=== PATIENT | male | born 1950 | race Caucasian/White ===

== ENCOUNTER → 2016-09-20 | Outpatient (CLI) | payer OTHER ==
[~2016-09-20] MED LIST: AMOX500T PO; AMOX875T PO; ASPI-232 PO; CARB1TAB38 PO; ERGO1CAP35 PO; FURO40TA3 PO; GLIM1TAB2 PO; HYDR2TAB48 PO; LEVO50TA6 PO; LISI-461 PO; LISI-789 PO; MCRK20 PO; METF500T PO; METH5TAB2 PO; MIRT30TA3 PO; NITR0.4D6 SL; ONDA8TAB7 PO; PRAV20TA PO; PRAV40TA2 PO; SYN25 PO; ZLF/100 PO
[2016-09-20 17:50] LABS: BASO % 0.2 %; BASO ABS # 0.01 K/uL (0-0.2); COMPLETE YES; HEMATOCRIT 38.2 % (42-52); LYMPH % 22.7 %; LYMPH ABS # 1.14 K/uL (1.2-3.4); MEAN CELL VOLUME 93.2 fL (80-100); MEAN CORPUSCULAR HEMOGLOBIN 30.5 pg (25-34); MEAN CORPUSCULAR HGB CONC 32.7 g/dl (32-36); MEAN PLATELET VOLUME 11.3 fL (7.4-10.4); MONO % 16.1 %; PLATELET COUNT 125 K/uL (130-400); WHITE BLOOD COUNT 5.02 K/uL (4.8-10.8)
[2016-09-20 18:09] LABS: ALT/SGPT 22 U/L (12-78); BLOOD UREA NITROGEN 27 mg/dl (7-18); BUN/CREATININE RATIO 34.7 (10-20); C-REACTIVE PROTEIN 0.89 mg/dl (0-0.29); CARBON DIOXIDE 23 mmol/L (21-32); CHLORIDE 107 mmol/L (98-107); CHOLESTEROL 181 mg/dl (0-200); CREATININE 0.78 mg/dl (0.60-1.40); GLUCOSE 130 mg/dl (70-99); POTASSIUM 4.1 mmol/L (3.5-5.1); SODIUM 140 mmol/L (136-145); TRIGLYCERIDES 115 mg/dl (0-150); VERY LOW DENSITY LIPOPROT CALC 23 mg/dl
[2016-09-20 18:12] LABS: CHOLESTEROL/HDL RATIO 3.2; HDL CHOLESTEROL 56 mg/dl; LDL CHOLESTEROL CALCULATED 102 mg/dl
[2016-09-21 06:08] LABS: ESTIMATED AVERAGE GLUCOSE 105 mg/dl; HA1C FLAG Normal (Normal)
== END | disposition home or self-care (01) ==
LOC: C.LABMFLN 09:30
PROVIDERS: ATTEND Family Medicine
DX: M86.60 Other chronic osteomyelitis, unspecified site (principal); E11.9 Type 2 diabetes mellitus without complications; I25.10 Atherosclerotic heart disease of native coronary artery without angina pectoris

== ENCOUNTER → 2016-12-02 | Outpatient (CLI) | payer OTHER ==
[~2016-12-02] MED LIST changes: -CARB1TAB38 PO; +CARB400T3 PO
--- NOTE | 2016-12-02 14:23 | DIAGNOSTIC IMAGING REPORT ---
CHEST CT WITHOUT CONTRAST CT DOSE: HISTORY: Rectal cancer. TECHNIQUE: Multiaxial CT images of the chest were performed without contrast. Contrast was not administered due to the patient's reported allergy including shortness of breath. COMPARISON: PET CT 08/12/2016. FINDINGS: No pneumothorax. No pleural effusions. The central airways are patent. Stable 5 mm nodule within the right middle lobe on image 189. Mild diffuse reticulonodular interstitial thickening is also unchanged. This is consistent with chronic interstitial change. No new focal lung consolidations. No suspicious lytic or blastic osseous lesions. The heart is normal in size. No mediastinal or hilar lymphadenopathy. Normal caliber thoracic aorta. Left subclavian Port-A-Cath terminates in the SVC. IMPRESSION: 1. Stable 5 mm nodule within the right middle lobe. Continued follow-up recommended. 2. No change in the mild diffuse reticulonodular interstitial thickening. This is consistent with chronic interstitial change. No new focal lung consolidations. 3. Please refer to the dedicated abdomen and pelvis CT performed same day for further evaluation of the abdominal structures. Electronically signed by: Haider Solis M.D. 12/02/2016 2:20 PM Dictated Date/Time: 12/02/2016 2:15 PM
--- NOTE | 2016-12-02 14:29 | DIAGNOSTIC IMAGING REPORT ---
CT SCAN OF THE ABDOMEN AND PELVIS WITHOUT IV CONTRAST CLINICAL HISTORY: Rectal cancer. COMPARISON STUDY: PET/CT dated 08/30/2015. Abdominal CT dated 01/08/2016. TECHNIQUE: CT scan of the abdomen and pelvis is performed from the lung bases to the proximal femora. Images are reviewed in the axial, sagittal, and coronal planes. IV contrast was not administered for this examination due to a reported history of contrast allergy. Note that the examination is suboptimal without IV contrast. Automated dose control exposure was utilized. CT DOSE: 1563.47 mGy.cm FINDINGS: Lung bases: The heart is top normal in size and without pericardial effusion. There are coronary artery calcifications. A tiny hiatal hernia is observed. There is a 5 mm right middle lobe pulmonary nodule seen on axial image #47. This is unchanged dating back to the 08/30/2015 PET/CT. A 4 mm right lower lobe nodule is seen on image #34. Tiny calcified granulomas are present both lung bases. There is no airspace consolidation or pleural effusion. There is mild gynecomastia. Liver: The unenhanced liver is cirrhotic in morphology and markedly heterogeneous in attenuation. There is nodularity of the surface contour, as well as enlargement of the left lobe and caudate. There is no intrahepatic biliary ductal dilatation. Gallbladder: Unremarkable. Spleen: The spleen is mildly enlarged, measuring 14.7 cm in length. Pancreas: The Unenhanced pancreas is atrophic and grossly unremarkable. Adrenal glands: Unremarkable. Kidneys: The unenhanced kidneys demonstrate mild cortical atrophy and are without hydronephrosis. There are no renal calculi identified. There is no evidence of contour deforming renal mass lesion. Abdominal vasculature: The abdominal aorta is normal in course and caliber noting moderate to advanced atherosclerotic calcification. Bowel: There are postoperative changes from rectal resection with colocolonic anastomosis. Additionally, there is a diverting transverse double barrel colostomy present in the upper abdominal midline, as well as a mucous fistula suggested in the left lower quadrant. No bowel obstruction is seen. The appendix is well-visualized and normal. Peritoneum: There is no intraperitoneal free air or abdominal ascites. Lymphadenopathy: None. Pelvic viscera: There is circumferential bladder wall thickening. The prostate gland is diminutive. Presacral soft tissue stranding is again noted. Skeletal structures: The skeletal structures are osteopenic. No lytic or blastic lesions are seen. There is moderate lumbosacral spondylosis. Degenerative changes are identified involving the sacroiliac joints. IMPRESSION: 1. IV contrast was not administered due to a reported history of contrast allergy. 2. There is no evidence of metastatic disease in the abdomen or pelvis. 3. There are postoperative changes from rectal resection with colocolonic anastomosis, double barrel colostomy in the upper abdominal midline, and probable left lower quadrant mucous fistula. Correlation with the patient's surgical history will be required. No bowel obstruction is identified. 4. There is circumferential bladder wall thickening. 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 Correlation with clinical findings and urinalysis with be required. Presacral soft tissue infiltration is also unchanged and likely treatment related. 5. Cirrhotic liver morphology. 6. Splenomegaly. 7. There are 2 small pulmonary nodules the right lung base measuring up to 5 mm. These remain indeterminant and continued attention at follow-up is recommended. 8. Additional changes as detailed above. Electronically signed by: Brent Reyes M.D. 12/02/2016 2:26 PM Dictated Date/Time: 12/02/2016 2:16 PM
== END | disposition home or self-care (01) ==
LOC: C.CTS 10:49
PROVIDERS: ATTEND Internal Medicine Hematology & Oncology
DX: C20 Malignant neoplasm of rectum (principal); R16.1 Splenomegaly, not elsewhere classified; R91.8 Other nonspecific abnormal finding of lung field; R93.5 Abnormal findings on diagnostic imaging of other abdominal regions, including retroperitoneum

== ENCOUNTER → 2017-03-11 | Outpatient (CLI) | payer OTHER ==
[~2017-03-11] MED LIST changes: +CARB1TAB38 PO; -CARB400T3 PO
[2017-03-11 18:30] LABS: ALB/GLOB RATIO 0.9 (0.9-2); ALT/SGPT 28 U/L (12-78); AMYLASE 85 U/L (25-115); AST/SGOT 21 U/L (15-37); BLOOD UREA NITROGEN 27 mg/dl (7-18); BUN/CREATININE RATIO 37.1 (10-20); CALCIUM 9.2 mg/dl (8.5-10.1); CARBON DIOXIDE 27 mmol/L (21-32); CHLORIDE 109 mmol/L (98-107); CREATININE 0.73 mg/dl (0.60-1.40); GLUCOSE 120 mg/dl (70-99); POTASSIUM 4.2 mmol/L (3.5-5.1); SODIUM 141 mmol/L (136-145)
[2017-03-11 18:40] LABS: ALKALINE PHOSPHATASE 130 U/L (45-117)
[2017-03-11 18:44] LABS: BASO % 0.4 %; BASO ABS # 0.02 K/uL (0-0.2); COMPLETE YES; EOS % 5.6 %; HEMATOCRIT 41.6 % (42-52); IG% 0.2 %; MEAN CORPUSCULAR HEMOGLOBIN 29.7 pg (25-34); MEAN CORPUSCULAR HGB CONC 32.9 g/dl (32-36); MEAN PLATELET VOLUME 9.3 fL (7.4-10.4); MONO % 10.2 %; NEUT % 61.6 %; PLATELET COUNT 163 K/uL (130-400); RED BLOOD COUNT 4.62 M/uL (4.7-6.1); WHITE BLOOD COUNT 5.01 K/uL (4.8-10.8)
[2017-03-12 06:24] LABS: ESTIMATED AVERAGE GLUCOSE 114 mg/dl; HA1C FLAG Normal (Normal)
== END | disposition home or self-care (01) ==
LOC: C.LABMFLN 12:39
PROVIDERS: ATTEND Family Medicine
DX: Z00.00 Encounter for general adult medical examination without abnormal findings (principal); R10.9 Unspecified abdominal pain; I10 Essential (primary) hypertension; E78.00 Pure hypercholesterolemia, unspecified; E03.9 Hypothyroidism, unspecified; E11.9 Type 2 diabetes mellitus without complications

== ENCOUNTER → 2017-03-18 | Outpatient (CLI) | payer OTHER ==
[2017-03-18 18:29] LABS: RATIO 21.5 mcg/mg (0-30.0)
== END | disposition home or self-care (01) ==
LOC: C.LABMFLN 15:10
PROVIDERS: ATTEND Family Medicine
DX: E11.9 Type 2 diabetes mellitus without complications (principal)

== ENCOUNTER 2017-04-24 16:16 | Inpatient (IN) | payer OTHER ==
[~2017-04-24] VITALS: Ht 182.9 cm; Wt 103.5 kg
[~2017-04-24 16:16] MED LIST changes: -AMOX500T PO; -AMOX875T PO; -LEVO50TA6 PO; -LISI-461 PO; -MCRK20 PO; -METH5TAB2 PO; -MIRT30TA3 PO; -PRAV40TA2 PO; -ZLF/100 PO
[2017-04-24] MEDS ORDERED: METH5TAB2 PO (16:44)
[2017-04-24] MEDS ORDERED: LISI-461 PO (16:44)
[2017-04-24] MEDS ORDERED: PRAV40TA2 PO (16:44)
[2017-04-24] MEDS ORDERED: LEVO50TA6 PO (16:44)
[2017-04-24] MEDS ORDERED: MIRT30TA3 PO (16:44)
[2017-04-24] MEDS ORDERED: ZLF/100 PO (16:44)
[2017-04-24] MEDS ORDERED: PIPERACILLIN/TAZOBACTAM 3.375 GM/100ML D5W IV STA (16:55)
[2017-04-24] MEDS ORDERED: SODIUM CHLORIDE 0.9% 1000ML 1,000 ML IV STA (16:55)
[2017-04-24 17:10] LABS: BASO % 0.1 %; BASO ABS # 0.01 K/uL (0-0.2); COMPLETE YES; EOS % 0.4 %; IG% 0.3 %; LYMPH % 9.2 %; LYMPH ABS # 0.98 K/uL (1.2-3.4); MEAN CELL VOLUME 88.2 fL (80-100); MEAN CORPUSCULAR HEMOGLOBIN 30.7 pg (25-34); MEAN CORPUSCULAR HGB CONC 34.9 g/dl (32-36); MEAN PLATELET VOLUME 9.7 fL (7.4-10.4); PLATELET COUNT 113 K/uL (130-400); RED BLOOD COUNT 3.97 M/uL (4.7-6.1); WHITE BLOOD COUNT 10.67 K/uL (4.8-10.8)
[2017-04-24] MEDS ORDERED: OPTIRAY 320 IV PRN (17:15)
--- NOTE | 2017-04-24 17:16 | DIAGNOSTIC IMAGING REPORT ---
CHEST ONE VIEW PORTABLE HISTORY: 66 years-old Male ABDOMINAL PAIN/GI COMPARISON: Chest radiograph 07/05/2016 TECHNIQUE: Portable upright AP view of the chest FINDINGS: Cardiac silhouette is within normal limits. Left subclavian [id number] catheter is noted with distal tip terminating within the region of the mid SVC. Cardiac silhouette is within normal limits. There is no pneumothorax, pleural effusion, or overt pulmonary edema or focal airspace consolidation. Patchy subsegmental bibasilar opacities appear unchanged suggesting atelectasis. The bones are grossly intact. IMPRESSION: No acute cardiopulmonary process. The above report was generated using voice recognition software. It may contain grammatical, syntax or spelling errors. Electronically signed by: Cam Dominguez M.D. 04/24/2017 5:15 PM Dictated Date/Time: 04/24/2017 5:14 PM
[2017-04-24 17:19] LABS: INR 1.1 (0.9-1.1); PARTIAL THROMBOPLASTIN RATIO 1.6
[2017-04-24 17:31] LABS: BUN/CREATININE RATIO 19.8 (10-20); CALCIUM 8.8 mg/dl (8.5-10.1); CREATININE 0.82 mg/dl (0.60-1.40); POTASSIUM 3.6 mmol/L (3.5-5.1)
--- NOTE | 2017-04-24 19:24 | DIAGNOSTIC IMAGING REPORT ---
ABD/PELVIS NO IV OR ORAL CONT CLINICAL HISTORY: 66 years-old Male presenting with llq cellulitis/abscess. TECHNIQUE: Multidetector CT of the abdomen and pelvis was performed without the use of intravenous contrast. IV contrast: None. A dose lowering technique was used consistent with the principles of ALARA (as low as reasonably achievable). COMPARISON: 12/02/2016. CT DOSE (mGy.cm): The estimated cumulative dose is 1390.38 mGy.cm. FINDINGS: [employer] topogram: Unremarkable. Lung bases: Interval enlargement of the previously noted right middle lobe nodule, which now measures 8 mm, previously 6 mm (series 3 image 8) additionally, interval enlargement of the right lower lobe nodule, which now measures 7 mm, previously 4 mm (series 3 image 19). Minimal groundglass centrilobular opacities noted in the dependent portions of the right middle lobe, not significant changed from prior. Similar centrilobular groundglass opacities noted elsewhere including the lingula. Scattered groundglass opacity at the lung bases may represent atelectasis. The chamber enlargement of the heart is suggested. Coronary artery calcification. No pericardial or pleural effusion. Liver: Cirrhotic liver morphology. Ill-defined hypodense 2.1 cm lesion in the left hepatic lobe is new from prior and highly suspicious. Hepatic density consistent with steatosis. Biliary: No gross biliary ductal dilatation. Normal gallbladder. Pancreas: Mild parenchymal atrophy. Spleen: Enlarged measuring 14 cm in maximal sagittal dimension. Adrenal glands: Normal. Kidneys and ureters: No nephrolithiasis. No hydronephrosis. Normal ureters. Bladder: Circumferential bladder wall thickening. Pelvic organs: Prostate poorly visualized. Bowel: Postsurgical changes of proctectomy. The absence of intravenous and oral contrast limits evaluation. Left lower quadrant mucous fistula. Transverse colon diverting colostomy in the midline ventral abdomen. Small bowel appears tethered in the proctectomy bed. No bowel obstruction. Peritoneal cavity: No free fluid or intraperitoneal gas. Infiltration in the presacral space likely postradiation and posttreatment change. This is not significantly changed from prior and would be better evaluated with intravenous and oral contrast. Vasculature: Atherosclerosis of the normal caliber abdominal aorta. Lymph nodes: No pathologically enlarged lymph nodes by CT size criteria. Abdominal wall: Small amount of fluid noted in the left inguinal canal. Postsurgical changes in the midline and at the ostomy sites. No focal fluid collection. Mild in the [place] suggested. Skin thickening along the left abdomen with extensive subjacent subcutaneous fat stranding. Musculoskeletal: No destructive osseous lesion. Degenerative changes of the lumbar spine. IMPRESSION: 1. Skin thickening and subcutaneous infiltration of the left mid abdominal wall could be consistent with cellulitis. No subjacent abscess. 2. Extensive postsurgical changes of the bowel status post proctectomy with mid transverse colon diverting colostomy and left lower quadrant mucous fistula. No bowel obstruction. Extensive infiltration in the presacral space likely represents post radiation and posttreatment change. Evaluation for recurrence in the operative bed would be better evaluated with intravenous and oral contrast. The patient could receive a contrast-enhanced MR of the abdomen and pelvis in the future to assess for recurrence. 3. Evidence of new suspicious left hepatic lobe lesion, highly concerning for metastatic lesion. 4. Interval enlargement of 2 solid pulmonary nodules in the right lung, which are suspicious for pulmonary metastatic disease. 5. Cirrhosis likely with portal hypertension evidenced by splenomegaly. 6. 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 Electronically signed by: Joseph Olsen M.D. 04/24/2017 7:23 PM Dictated Date/Time: 04/24/2017 7:09 PM
--- NOTE | 2017-04-24 20:37 | EMERGENCY ROOM VISIT NOTE ---
History Report prepared by Candace: Owen Concepcion Under the Supervision of: Dr. Kavon Colin D.O. First contact with patient: 16:46 Chief Complaint: ABDOMINAL PAIN Stated Complaint: ABD PAIN, CANCER PT Nursing Triage Summary: Colorectal CA 2 years ago. Woke up this AM, unable to sleep due to LLQ pain. Blood clots in underwear this AM. Bleeding into ostomy bag. "When I changed my bag this AM, there was a hole in my stomach. There was pus." History of Present Illness The patient is a 66 year old male who presents to the Emergency Room with complaints of LLQ abdominal pain that began 7 days ago. He rates his pain a 10/ 10 in severity. The patient has a history of colorectal cancer 2 years ago and has a colostomy in place. Over this week, the patient has noticed a sunburn- like area of redness to his LLQ. This morning, he noticed a hole open up in the area that is expressing brown/yellow mucous. He has been having blood with clots in his colostomy bag over the past month, and had some this morning as well. Source of History: patient Onset: 1 week ago Position: abdomen (LLQ) Symptom Intensity: 10/10 Quality: sharp Timing: constant Associated Symptoms: + hematochezia Note: He has redness to his LLQ with a hole that is expressing pus. He denies any other symptoms. Review of Systems See HPI for pertinent positives & negatives. A total of 10 systems reviewed and were otherwise negative. Past Medical & Surgical Medical Problems: (1) Colostomy in place Surgical Problems: (1) Colorectal cancer Family History Omitted secondary to the patient's age. Social History Smoking Status: Never Smoker Smokeless Tobacco Use: No Drug Use: none Occupation Status: retired Current/Historical Medications Scheduled Carbamazepine Extended Release (Tegretol Xr), 400 MG PO QAM Furosemide (Lasix), 40 MG PO QAM Levothyroxine Sodium (Levothyroxine Sodium), 50 MCG PO QAM Lisinopril (Lisinopril), 10 MG PO DAILY Metformin Hcl (Glucophage), 500 MG PO BID Methadone Hcl (Dolophine), 5 MG PO TID Mirtazapine (Remeron), 30 MG PO HS Nitroglycerin (Nitroglycerin), 1 TAB SL prn Pravastatin Sodium (Pravastatin Sodium), 40 MG PO DAILY Sertraline HCl (Sertraline HCl), 100 MG PO DAILY Scheduled PRN Ondansetron Tab (Zofran), 8 MG PO Q6H PRN for Nausea Allergies Coded Allergies: Beta Adrenergic Blockers (Unverified Allergy, Intermediate, hives, 04/24/17 ) Citalopram (Verified Allergy, Intermediate, hives, 04/24/17) Codeine (Verified Allergy, Intermediate, hives, 04/24/17) Iodine (Verified Allergy, Intermediate, hives, 04/24/17) Metronidazole (Unverified Allergy, Intermediate, hives, 04/24/17) Povidone Iodine (Unverified Allergy, Intermediate, hives, 04/24/17) Atorvastatin (Verified Allergy, Mild, cramps and rash, 04/24/17) [place] [facility] (Unverified Allergy, Mild, tightening of throat, rash and hives, 04/24/17) Dextromethorphan (Unverified Allergy, Mild, tightening of throat, rash and hives, 04/24/17) Lisinopril (Verified Allergy, Mild, rash, 01/17/16) Propylene Glycol (Unverified Allergy, Mild, tightening of throat, rash and hives, 04/24/17) Saccharin (Unverified Allergy, Mild, tightening of throat, rash and hives , 04/24/17) Sodium Benzoate (Unverified Allergy, Mild, tightening of throat, rash and hives, 04/24/17) Tramadol (Verified Allergy, Mild, tightening of throat, 04/24/17) Uncoded Allergies: DIAL SOAP (Allergy, Intermediate, rash, 08/31/15) OPIUM NARCOTICS (Allergy, Intermediate, hives, 08/31/15) CLOTH AND PAPER TAPE (Allergy, Mild, rash, 11/27/15) Physical Exam Vital Signs Date Time Temp Pulse Resp B/P (MAP) Pulse Ox O2 Delivery O2 Flow Rate FiO2 04/24/17 21:09 87 04/24/17 20:02 69 16 132/60 96 Room Air 04/24/17 17:53 37.1 75 16 130/75 97 Room Air 04/24/17 17:09 85 04/24/17 16:31 36.7 111 17 145/86 95 Room Air Physical Exam CONSTITUTIONAL/VITAL SIGNS: Reviewed / noted above. GENERAL: Non-toxic in appearance. INTEGUMENTARY: Warm, dry, and [place]. HEAD: Normocephalic. EYES: without scleral icterus or trauma. ENT/OROPHARYNX: clear and moist. LYMPHADENOPATHY/NECK: Is supple without lymphadenopathy or meningismus. RESPIRATORY: Lungs clear and equal. CARDIOVASCULAR: Regular rate and rhythm. GI/ABDOMEN: There is a colostomy in place in the left mid abdominal region. No blood in colostomy at this time, stool is light brown. LLQ abdomen reveals diffuse cellulitis with a small opening that is draining purulent fluid ( collected for culture). There LLQ is tender to palpation. EXTREMITIES: Warm and well perfused. BACK: No CVA tenderness. NEUROLOGICAL: Intact without focal deficits. PSYCHIATRIC: normal affect. MUSCULOSKELETAL: Normally developed with good muscle tone. Medical Decision & Procedures ER Provider Diagnostic Interpretation: Radiology results as stated below per my review and radiologist interpretation: CHEST ONE VIEW PORTABLE HISTORY: 66 years-old Male ABDOMINAL PAIN/GI COMPARISON: Chest radiograph 07/05/2016 TECHNIQUE: Portable upright AP view of the chest FINDINGS: Cardiac silhouette is within normal limits. Left subclavian Maywgp-a-Ased catheter is noted with distal tip terminating within the region of the mid SVC. Cardiac silhouette is within normal limits. There is no pneumothorax, pleural effusion, or overt pulmonary edema or focal airspace consolidation. Patchy subsegmental bibasilar opacities appear unchanged suggesting atelectasis. The bones are grossly intact. IMPRESSION: No acute cardiopulmonary process. The above report was generated using voice recognition software. It may contain grammatical, syntax or spelling errors. Electronically signed by: Cam Dominguez M.D. 04/24/2017 5:15 PM Dictated Date/Time: 04/24/2017 5:14 PM ABD/PELVIS NO IV OR ORAL CONT CLINICAL HISTORY: 66 years-old Male presenting with llq cellulitis/abscess. TECHNIQUE: Multidetector CT of the abdomen and pelvis was performed without the use of intravenous contrast. IV contrast: None. A dose lowering technique was used consistent with the principles of ALARA (as low as reasonably achievable). COMPARISON: 12/02/2016. CT DOSE (mGy.cm): The estimated cumulative dose is 1390.38 mGy.cm. FINDINGS: [employer] topogram: Unremarkable. Lung bases: Interval enlargement of the previously noted right middle lobe nodule, which now measures 8 mm, previously 6 mm (series 3 image 8) additionally, interval enlargement of the right lower lobe nodule, which now measures 7 mm, previously 4 mm (series 3 image 19). Minimal groundglass centrilobular opacities noted in the dependent portions of the right middle lobe, not significant changed from prior. Similar centrilobular groundglass opacities noted elsewhere including the lingula. Scattered groundglass opacity at the lung bases may represent atelectasis. The chamber enlargement of the heart is suggested. Coronary artery calcification. No pericardial or pleural effusion. Liver: Cirrhotic liver morphology. Ill-defined hypodense 2.1 cm lesion in the left hepatic lobe is new from prior and highly suspicious. Hepatic density consistent with steatosis. Biliary: No gross biliary ductal dilatation. Normal gallbladder. Pancreas: Mild parenchymal atrophy. Spleen: Enlarged measuring 14 cm in maximal sagittal dimension. Adrenal glands: Normal. Kidneys and ureters: No nephrolithiasis. No hydronephrosis. Normal ureters. Bladder: Circumferential bladder wall thickening. Pelvic organs: Prostate poorly visualized. Bowel: Postsurgical changes of proctectomy. The absence of intravenous and oral contrast limits evaluation. Left lower quadrant mucous fistula. Transverse colon diverting colostomy in the midline ventral abdomen. Small bowel appears tethered in the proctectomy bed. No bowel obstruction. Peritoneal cavity: No free fluid or intraperitoneal gas. Infiltration in the presacral space likely postradiation and posttreatment change. This is not significantly changed from prior and would be better evaluated with intravenous and oral contrast. Vasculature: Atherosclerosis of the normal caliber abdominal aorta. Lymph nodes: No pathologically enlarged lymph nodes by CT size criteria. Abdominal wall: Small amount of fluid noted in the left inguinal canal. Postsurgical changes in the midline and at the ostomy sites. No focal fluid collection. Mild in the [place] suggested. Skin thickening along the left abdomen with extensive subjacent subcutaneous fat stranding. Musculoskeletal: No destructive osseous lesion. Degenerative changes of the lumbar spine. IMPRESSION: 1. Skin thickening and subcutaneous infiltration of the left mid abdominal wall could be consistent with cellulitis. No subjacent abscess. 2. Extensive postsurgical changes of the bowel status post proctectomy with mid transverse colon diverting colostomy and left lower quadrant mucous fistula. No bowel obstruction. Extensive infiltration in the presacral space likely represents post radiation and posttreatment change. Evaluation for recurrence in the operative bed would be better evaluated with intravenous and oral contrast. The patient could receive a contrast-enhanced MR of the abdomen and pelvis in the future to assess for recurrence. 3. Evidence of new suspicious left hepatic lobe lesion, highly concerning for metastatic lesion. 4. Interval enlargement of 2 solid pulmonary nodules in the right lung, which are suspicious for pulmonary metastatic disease. 5. Cirrhosis likely with portal hypertension evidenced by splenomegaly. 6. 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 Electronically signed by: Joseph Olsen M.D. 04/24/2017 7:23 PM Dictated Date/Time: 04/24/2017 7:09 PM Laboratory Results 04/24/17 16:55 Red Blood Count 3.97, Mean Corpuscular Volume 88.2, Mean Corpuscular Hemoglobin 30.7, Mean Corpuscular Hemoglobin Concent 34.9, Mean Platelet Volume 9.7, Neutrophils (%) (Auto) 79.0, Lymphocytes (%) (Auto) 9.2, Monocytes (%) (Auto) 11.0, Eosinophils (%) (Auto) 0.4, Basophils (%) (Auto) 0.1, Neutrophils # (Auto ) 8.44, Lymphocytes # (Auto) 0.98, Monocytes # (Auto) 1.17, Eosinophils # (Auto ) 0.04, Basophils # (Auto) 0.01 04/24/17 16:55 Test 04/24/17 16:55 White Blood Count 10.67 K/uL (4.8-10.8) Red Blood Count 3.97 M/uL (4.7-6.1) Hemoglobin 12.2 g/dL (14.0-18.0) Hematocrit 35.0 % (42-52) Mean Corpuscular Volume 88.2 fL (80-100) Mean Corpuscular Hemoglobin 30.7 pg (25-34) Mean Corpuscular Hemoglobin Concent 34.9 g/dl (32-36) Platelet Count 113 K/uL (130-400) Mean Platelet Volume 9.7 fL (7.4-10.4) Neutrophils (%) (Auto) 79.0 % Lymphocytes (%) (Auto) 9.2 % Monocytes (%) (Auto) 11.0 % Eosinophils (%) (Auto) 0.4 % Basophils (%) (Auto) 0.1 % Neutrophils # (Auto) 8.44 K/uL (1.4-6.5) Lymphocytes # (Auto) 0.98 K/uL (1.2-3.4) Monocytes # (Auto) 1.17 K/uL (0.11-0.59) Eosinophils # (Auto) 0.04 K/uL (0-0.5) Basophils # (Auto) 0.01 K/uL (0-0.2) RDW Standard Deviation 44.6 fL (36.4-46.3) RDW Coefficient of Variation 13.6 % (11.5-14.5) Immature Granulocyte % (Auto) 0.3 % Immature Granulocyte # (Auto) 0.03 K/uL (0.00-0.02) Prothrombin Time 12.0 SECONDS (9.0-12.0) Prothromb Time International Ratio 1.1 (0.9-1.1) Activated Partial Thromboplast Time 42.0 SECONDS (21.0-31.0) Partial Thromboplastin Ratio 1.6 Anion Gap 6.0 mmol/L (3-11) Est Creatinine Clear Calc Drug Dose 112.6 ml/min Estimated GFR () 107.6 Estimated GFR (Non- 92.8 BUN/Creatinine Ratio 19.8 (10-20) Calcium Level 8.8 mg/dl (8.5-10.1) Total Bilirubin 1.2 mg/dl (0.2-1) Direct Bilirubin 0.4 mg/dl (0-0.2) Aspartate Amino Transf (AST/SGOT) 12 U/L (15-37) Alanine Aminotransferase (ALT/SGPT) 14 U/L (12-78) Alkaline Phosphatase 140 U/L (45-117) Total Protein 6.8 gm/dl (6.4-8.2) Albumin 2.7 gm/dl (3.4-5.0) Laboratory results as stated above per my review. Medications Administered Medications (Trade) Dose Ordered Sig/Lorenzo Route Start Time Stop Time Status Last Admin Dose Admin Sodium Chloride 1,000 ml @ 200 mls/hr Q5H STAT IV 04/24/17 16:55 04/24/17 21:54 DC 04/24/17 16:55 200 MLS/HR Piperacillin Sod/ Tazobactam Sod (Zosyn Iv) 3.375 gm NOW STAT IV 04/24/17 16:55 04/24/17 16:59 DC 04/24/17 17:52 3.375 GM ED Course 164: Previous medical records were reviewed. The patient was evaluated in room B8. A complete history and physical examination was performed. 1654: Ordered Sodium Chloride 1000 ml @ 200 mls/hr IV, Zosyn Iv 3.375 gm IV 2027: On reevaluation, the patient is resting. I discussed the results and findings with him. He verbalized agreement of the treatment plan. I spoke with Dr. Roblero of the [facility]. The patient will be evaluated for further management and care. Medical Decision Differential considered: pancreatitis, hepatitis, or acute cholecystitis, AAA, UTI, pyelonephritis, kidney stones, appendicitis, diverticulitis, shingles, bowel obstruction mesenteric ischemia, intussusception, hernia, and testicular torsion. This is a 66-year-old male who presents to the ED with a chief complaint of left lower quadrant abdominal pain and redness as well as discharge. The patient states that his symptoms started about a week to 10 days ago. He states that today his pain increased and he noticed discharge from a hole in his left lower abdomen. The patient reports a history of colon cancer. He has a colostomy. His vital signs are stable. He is afebrile. His exam reveals cellulitis to the left lower abdomen with drainage from a small 1-2 cm hole. The drainage is purulent in nature. There is tenderness to palpation of the left lower quadrant in the area of the erythema. Chest x-ray did not show acute disease. CBC is unremarkable. Complete metabolic panel was unremarkable. Glucose is 157. CT scan of the abdomen and pelvis reveals findings suggesting left lower abdominal wall cellulitis. The patient was given IV Zosyn. He will be seen by the hospitalist for further inpatient evaluation and care. Medication Reconcilliation Current Medication List: was personally reviewed by me Blood Pressure Screening Patient's blood pressure: Elevated blood pressure Blood pressure disposition: Elevated BP felt to be situational Consults Time Called: 2024 Consulting Physician: Dr. [place] [facility] [place] Call: 2027 Discussed the patient's case. The patient will be evaluated for further treatment and disposition. Impression Primary Impression: Abdominal wall cellulitis Scribe Attestation The scribe's documentation has been prepared under my direction and personally reviewed by me in its entirety. I confirm that the note above accurately reflects all work, treatment, procedures, and medical decision making performed by me. Departure Information Dispostion Being Evaluated By Hospitalist Referrals Bob Israel M.D. (PCP) Patient Instructions My [facility]
[2017-04-24] MEDS ORDERED: POLYETHYLENE (MIRALAX) 17 GM PACK PO PRN (21:30)
[2017-04-24] MEDS ORDERED: MAGNESIUM HYDROXIDE SUSP 30 ML UDC PO PRN (21:30)
[2017-04-24] MEDS ORDERED: ACETAMINOPHEN 325 MG TAB PO PRN (21:30)
--- NOTE | 2017-04-24 22:02 | History and Physical ---
History & Physical Date & Time of Service: Apr 24, 2017 at 22:02 Chief Complaint: Abd Pain, Cancer Pt Primary Care Physician: Bob Israel M.D. History of Present Illness Source: patient 66-year-old male with past medical history of colorectal cancer status post colonic resection with colostomy present in the ER with complaints of left lower quadrant abdominal pain that started about 7 days ago. The patient complains of reddish "sunburn" like rash on the left lower quadrant that he noticed over this week and he woke up this morning with bleeding, brownish to yellow mucoid discharge from a hole that developed near the redness. Denies any fevers or chills. Has nausea and vomiting intermittently at baseline which hasn't changed. Complains of abdominal pain which is constant and radiating to his back on the left side and across the abdomen to his right , 11.5/10 in severity. He currently uses methadone for pain control. Past Medical/Surgical History Medical Problems: (1) Colostomy in place Status: Chronic Surgical Problems: (1) Colorectal cancer Status: Resolved Social History Smoking Status: Never Smoker Smokeless Tobacco Use: No Drug Use: none Occupational Status: retired Immunizations History of Influenza Vaccine: Yes History of Tetanus Vaccine?: Yes History of Pneumococcal: Yes History of Hepatitis B Vaccine: No Multi-Drug Resistant Organisms History of MDRO: No Allergies Coded Allergies: Beta Adrenergic Blockers (Unverified Allergy, Intermediate, hives, 04/24/17 ) Citalopram (Verified Allergy, Intermediate, hives, 04/24/17) Codeine (Verified Allergy, Intermediate, hives, 04/24/17) Iodine (Verified Allergy, Intermediate, hives, 04/24/17) Metronidazole (Unverified Allergy, Intermediate, hives, 04/24/17) Povidone Iodine (Unverified Allergy, Intermediate, hives, 04/24/17) Atorvastatin (Verified Allergy, Mild, cramps and rash, 04/24/17) [place] [facility] (Unverified Allergy, Mild, tightening of throat, rash and hives, 04/24/17) Dextromethorphan (Unverified Allergy, Mild, tightening of throat, rash and hives, 04/24/17) Lisinopril (Verified Allergy, Mild, rash, 01/17/16) Propylene Glycol (Unverified Allergy, Mild, tightening of throat, rash and hives, 04/24/17) Saccharin (Unverified Allergy, Mild, tightening of throat, rash and hives , 04/24/17) Sodium Benzoate (Unverified Allergy, Mild, tightening of throat, rash and hives, 04/24/17) Tramadol (Verified Allergy, Mild, tightening of throat, 04/24/17) Uncoded Allergies: DIAL SOAP (Allergy, Intermediate, rash, 08/31/15) OPIUM NARCOTICS (Allergy, Intermediate, hives, 08/31/15) CLOTH AND PAPER TAPE (Allergy, Mild, rash, 11/27/15) Home Medications Scheduled Carbamazepine Extended Release (Tegretol Xr), 400 MG PO QAM Furosemide (Lasix), 40 MG PO QAM Levothyroxine Sodium (Levothyroxine Sodium), 50 MCG PO QAM Lisinopril (Lisinopril), 10 MG PO DAILY Metformin Hcl (Glucophage), 500 MG PO BID Methadone Hcl (Dolophine), 5 MG PO TID Mirtazapine (Remeron), 30 MG PO HS Nitroglycerin (Nitroglycerin), 1 TAB SL prn Pravastatin Sodium (Pravastatin Sodium), 40 MG PO DAILY Sertraline HCl (Sertraline HCl), 100 MG PO DAILY Scheduled PRN Ondansetron Tab (Zofran), 8 MG PO Q6H PRN for Nausea Review of Systems Constitutional: No fever, No chills Eyes: No worsening of vision ENT: No hearing loss Respiratory: No cough Cardiovascular: No chest pain Abdomen: + pain (left lower quadrant), + nausea (chronic), + vomiting (chronic) , + problem reported (mucoid discharge from an opening in the left lower quadrant) Genitourinary - Male: No hematuria, No dysuria Neurologic: No memory loss Psychiatric: No depression symptoms Endocrine: No fatigue Hematologic / Lymphatic: No abnormal bleeding/bruising Physical Exam Vital Signs Date Time Temp Pulse Resp B/P (MAP) Pulse Ox O2 Delivery O2 Flow Rate FiO2 04/24/17 21:09 87 04/24/17 20:02 69 16 132/60 96 Room Air 04/24/17 17:53 37.1 75 16 130/75 97 Room Air 04/24/17 17:09 85 04/24/17 16:31 36.7 111 17 145/86 95 Room Air General Appearance: WD/WN, no apparent distress Eyes: normal inspection ENT: hearing grossly normal Neck: supple Respiratory/Chest: chest non-tender, lungs clear, normal breath sounds, no respiratory distress Cardiovascular: regular rate, rhythm Abdomen/GI: + tenderness (left lower quadrant), + pertinent finding (colostomy bag in mid abdominal area. Left lower quadrant erythematous, warm, tender with a small opening with brownish yellow discharge.) Extremities/Musculoskelatal: no pedal edema Neurologic/Psych: alert, normal mood/affect, oriented x 3 Skin: normal color Diagnostics Laboratory Results Results Past 24 Hours Test 04/24/17 16:55 Range/Units White Blood Count 10.67 4.8-10.8 K/uL Red Blood Count 3.97 4.7-6.1 M/uL Hemoglobin 12.2 14.0-18.0 g/dL Hematocrit 35.0 42-52 % Mean Corpuscular Volume 88.2 80-100 fL Mean Corpuscular Hemoglobin 30.7 25-34 pg Mean Corpuscular Hemoglobin Concent 34.9 32-36 g/dl Platelet Count 113 130-400 K/uL Mean Platelet Volume 9.7 7.4-10.4 fL Neutrophils (%) (Auto) 79.0 % Lymphocytes (%) (Auto) 9.2 % Monocytes (%) (Auto) 11.0 % Eosinophils (%) (Auto) 0.4 % Basophils (%) (Auto) 0.1 % Neutrophils # (Auto) 8.44 1.4-6.5 K/uL Lymphocytes # (Auto) 0.98 1.2-3.4 K/uL Monocytes # (Auto) 1.17 0.11-0.59 K/uL Eosinophils # (Auto) 0.04 0-0.5 K/uL Basophils # (Auto) 0.01 0-0.2 K/uL RDW Standard Deviation 44.6 36.4-46.3 fL RDW Coefficient of Variation 13.6 11.5-14.5 % Immature Granulocyte % (Auto) 0.3 % Immature Granulocyte # (Auto) 0.03 0.00-0.02 K/uL Prothrombin Time 12.0 9.0-12.0 SECONDS Prothromb Time International Ratio 1.1 0.9-1.1 Activated Partial Thromboplast Time 42.0 21.0-31.0 SECONDS Partial Thromboplastin Ratio 1.6 Sodium Level 132 136-145 mmol/L Potassium Level 3.6 3.5-5.1 mmol/L Chloride Level 98 98-107 mmol/L Carbon Dioxide Level 28 21-32 mmol/L Anion Gap 6.0 3-11 mmol/L Blood Urea Nitrogen 16 7-18 mg/dl Creatinine 0.82 0.60-1.40 mg/dl Est Creatinine Clear Calc Drug Dose 112.6 ml/min Estimated GFR () 107.6 Estimated GFR (Non- 92.8 BUN/Creatinine Ratio 19.8 10-20 Random Glucose 157 70-99 mg/dl Calcium Level 8.8 8.5-10.1 mg/dl Total Bilirubin 1.2 0.2-1 mg/dl Direct Bilirubin 0.4 0-0.2 mg/dl Aspartate Amino Transf (AST/SGOT) 12 15-37 U/L Alanine Aminotransferase (ALT/SGPT) 14 12-78 U/L Alkaline Phosphatase 140 45-117 U/L Total Protein 6.8 6.4-8.2 gm/dl Albumin 2.7 3.4-5.0 gm/dl Microbiology Results 04/24/17 Blood Culture, Received Pending 04/24/17 Blood Culture, Received Pending 04/24/17 Gram Stain, Received Pending 04/24/17 Wound Culture, Received Pending Diagnostic Radiology CHEST ONE VIEW PORTABLE HISTORY: 66 years-old Male ABDOMINAL PAIN/GI COMPARISON: Chest radiograph 07/05/2016 TECHNIQUE: Portable upright AP view of the chest FINDINGS: Cardiac silhouette is within normal limits. Left subclavian [id number]-[id number] catheter is noted with distal tip terminating within the region of the mid SVC. Cardiac silhouette is within normal limits. There is no pneumothorax, pleural effusion, or overt pulmonary edema or focal airspace consolidation. Patchy subsegmental bibasilar opacities appear unchanged suggesting atelectasis. The bones are grossly intact. IMPRESSION: No acute cardiopulmonary process. The above report was generated using voice recognition software. It may contain grammatical, syntax or spelling errors. Electronically signed by: Cam Dominguez M.D. ABD/PELVIS NO IV OR ORAL CONT CLINICAL HISTORY: 66 years-old Male presenting with llq cellulitis/abscess. TECHNIQUE: Multidetector CT of the abdomen and pelvis was performed without the use of intravenous contrast. IV contrast: None. A dose lowering technique was used consistent with the principles of ALARA (as low as reasonably achievable). COMPARISON: 12/02/2016. CT DOSE (mGy.cm): The estimated cumulative dose is 1390.38 mGy.cm. FINDINGS: Medical Planner topogram: Unremarkable. Lung bases: Interval enlargement of the previously noted right middle lobe nodule, which now measures 8 mm, previously 6 mm (series 3 image 8) additionally, interval enlargement of the right lower lobe nodule, which now measures 7 mm, previously 4 mm (series 3 image 19). Minimal groundglass centrilobular opacities noted in the dependent portions of the right middle lobe, not significant changed from prior. Similar centrilobular groundglass opacities noted elsewhere including the lingula. Scattered groundglass opacity at the lung bases may represent atelectasis. The chamber enlargement of the heart is suggested. Coronary artery calcification. No pericardial or pleural effusion. Liver: Cirrhotic liver morphology. Ill-defined hypodense 2.1 cm lesion in the left hepatic lobe is new from prior and highly suspicious. Hepatic density consistent with steatosis. Biliary: No gross biliary ductal dilatation. Normal gallbladder. Pancreas: Mild parenchymal atrophy. Spleen: Enlarged measuring 14 cm in maximal sagittal dimension. Adrenal glands: Normal. Kidneys and ureters: No nephrolithiasis. No hydronephrosis. Normal ureters. Bladder: Circumferential bladder wall thickening. Pelvic organs: Prostate poorly visualized. Bowel: Postsurgical changes of proctectomy. The absence of intravenous and oral contrast limits evaluation. Left lower quadrant mucous fistula. Transverse colon diverting colostomy in the midline ventral abdomen. Small bowel appears tethered in the proctectomy bed. No bowel obstruction. Peritoneal cavity: No free fluid or intraperitoneal gas. Infiltration in the presacral space likely postradiation and posttreatment change. This is not significantly changed from prior and would be better evaluated with intravenous and oral contrast. Vasculature: Atherosclerosis of the normal caliber abdominal aorta. Lymph nodes: No pathologically enlarged lymph nodes by CT size criteria. Abdominal wall: Small amount of fluid noted in the left inguinal canal. Postsurgical changes in the midline and at the ostomy sites. No focal fluid collection. Mild in the [place] suggested. Skin thickening along the left abdomen with extensive subjacent subcutaneous fat stranding. Musculoskeletal: No destructive osseous lesion. Degenerative changes of the lumbar spine. IMPRESSION: 1. Skin thickening and subcutaneous infiltration of the left mid abdominal wall could be consistent with cellulitis. No subjacent abscess. 2. Extensive postsurgical changes of the bowel status post proctectomy with mid transverse colon diverting colostomy and left lower quadrant mucous fistula. No bowel obstruction. Extensive infiltration in the presacral space likely represents post radiation and posttreatment change. Evaluation for recurrence in the operative bed would be better evaluated with intravenous and oral contrast. The patient could receive a contrast-enhanced MR of the abdomen and pelvis in the future to assess for recurrence. 3. Evidence of new suspicious left hepatic lobe lesion, highly concerning for metastatic lesion. 4. Interval enlargement of 2 solid pulmonary nodules in the right lung, which are suspicious for pulmonary metastatic disease. 5. Cirrhosis likely with portal hypertension evidenced by splenomegaly. 6. 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 Impression Assessment and Plan 66-year-old male with past medical history of colorectal cancer status post colonic resection with colostomy present in the ER with complaints of left lower quadrant abdominal pain that started about 7 days ago. The patient complains of reddish "sunburn" like rash on the left lower quadrant that he noticed over this week and he woke up this morning with bleeding, brownish to yellow mucoid discharge from a hole that developed near the redness. Left low quadrant abdominal wall cellulitis with fistula: - Abdominal CT suggestive of cellulitis of abdominal wall with postsurgical changes of bowel including left lower quadrant mucous fistula. - Wound culture, blood culture pending - Started on vancomycin and clindamycin - GEN surgery consult - Pain control with 5 mg methadone 3 times a day(home dose) New onset Left hepatic lobe lesion: - As evidenced on CT, concerning for metastatic lesion - Oncology consult Possible lung metastasis: - Interval enlargement of 2 solid pulmonary nodules in the right lung concerning for metastases - Oncology consult as above - Consider CT surgery consult for possible biopsy History of seizures: Last seizure about 10 years ago - Continue Tegretol 400 mg once daily Hypothyroidism: - Continue Synthroid Hypertension: - Continue lisinopril 10 mg daily Diabetes type 2: - Home medications currently held - Insulin sliding scale Hyperlipidemia: - Continue pravastatin 40 mg daily Depression: - Continue Zoloft 100 mg daily DVT prophylaxis: SCDs DO NOT RESUSCITATE Disposition: Admitted to [facility] Resident Physician Supervision Note: I was present with Dr. Pineda during the history and exam. I discussed the case with the resident and agree with the findings and plan as documented in the note. Any exceptions or clarifications are listed here: 66 y/o M HTN, hypothyroid, colorectal CA - post colostomy placement presenting with abdominal wall cellulitis and abscess which may have ruptured. Cirrhosis seen on imaging in addition to what is likely a new met in the pt's liver. OE AAO x 3 S1,2 R CTAB Tender abdomen with erythematous wall and central draining area - colostomy is functional No CCE P: Pt placed on broad-spectrum antibiotics Surgery consulted Status of his CA is unclear - does not state that remission was achieved - he can f/u with his oncologist following DC Documented By: Darnell Roblero Level of Care Med/Surg VTE Prophylaxis VTE Risk Assessment Done? Y/N: Yes Risk Level: Moderate Given or contraindicated: SCD's Resident Tracking Resident Involvement: Resident Care Provided Care Provided: Adult Hospital Medicine
[2017-04-24 22:18] VITALS: Ht 182.9 cm; Wt 103.5 kg
--- NOTE | 2017-04-24 22:45 | Pharmacy Progress Note ---
Pharmacy Abx Initial Consult Date of Service Apr 24, 2017. Pharmacy Dosing Scope Date of Consult: 04/24/17 Consultation requested by: Dr. Ron Pharmacy is consulted to initiate vancomycin IV dosing therapy, order appropriate labs and adjust drug dose/frequency. Subjective The patient is a 66 year old male admitted on 04/24/17. Objective Height (Feet): 6 Height (Inches): 0 Weight (Kilograms): 105.200 Vital Signs (Past 12Hrs) Vital Signs Past 12 Hours Date Time Temp Pulse Resp B/P (MAP) Pulse Ox O2 Delivery O2 Flow Rate FiO2 04/24/17 21:09 87 04/24/17 20:02 69 16 132/60 96 Room Air 04/24/17 17:53 37.1 75 16 130/75 97 Room Air 04/24/17 17:09 85 04/24/17 16:31 36.7 111 17 145/86 95 Room Air Lab Results (24Hrs) Laboratory Tests (24 Hours) Test 04/24/17 16:55 White Blood Count 10.67 K/uL (4.8-10.8) Red Blood Count 3.97 M/uL (4.7-6.1) L Hemoglobin 12.2 g/dL (14.0-18.0) L Hematocrit 35.0 % (42-52) L Mean Corpuscular Volume 88.2 fL (80-100) Mean Corpuscular Hemoglobin 30.7 pg (25-34) Mean Corpuscular Hemoglobin Concent 34.9 g/dl (32-36) Platelet Count 113 K/uL (130-400) L Mean Platelet Volume 9.7 fL (7.4-10.4) Neutrophils (%) (Auto) 79.0 % Lymphocytes (%) (Auto) 9.2 % Monocytes (%) (Auto) 11.0 % Eosinophils (%) (Auto) 0.4 % Basophils (%) (Auto) 0.1 % Neutrophils # (Auto) 8.44 K/uL (1.4-6.5) H Lymphocytes # (Auto) 0.98 K/uL (1.2-3.4) L Monocytes # (Auto) 1.17 K/uL (0.11-0.59) H Eosinophils # (Auto) 0.04 K/uL (0-0.5) Basophils # (Auto) 0.01 K/uL (0-0.2) Micro Results Date/Time Source Procedure Growth Status 04/24/17 17:53 Blood Blood Culture Pending Received 04/24/17 16:55 Blood Blood Culture Pending Received 04/24/17 16:55 Ulcer Abdomen Gram Stain Pending Received 04/24/17 16:55 Ulcer Abdomen Wound Culture Pending Received Risk Factors for Resistance * Immunocompromised (h/o colon cancer with colostomy) Assessment & Plan Assessment 66 year old male admitted 04/24/17 with a 7 day h/o LLQ abdominal pain. He has a colostomy bag. The patient states that he has a hole in his abdomen expressing pus. Plan vancomycin for treatment of SSTI Vancomycin IV * Loading dose: 2500 mg (23.7 mg/kg) * Maintenance dose: 1500 mg IV (15 mg/kg) every 8 hours (population pharmacokinetics suggest a half-life of 7.96 hours) * Goal trough level for SSTI : 15 to 20 mcg/mL * Trough ordered for prior to fourth dose Pharmacy will continue to follow and will adjust dose/frequency as necessary. Thank you.
[2017-04-24] MEDS ORDERED: VANCOMYCIN CONSULT ACTIVE PRN (23:00)
[2017-04-24] MEDS ORDERED: SODIUM CHLORIDE 0.9% IV ONE (23:45)
[2017-04-24] MEDS ORDERED: VANCOMYCIN IV ONE (23:45)
[2017-04-24] MEDS: METHADONE HCL 5 MG TAB PO SCH (23:59)
[2017-04-25] MEDS: CLINDAMYCIN IV 300 MG in DEXTROSE 5% 50ML 50 ML IV SCH ×4 (00:05→23:51)
[2017-04-25] MEDS: SODIUM CHLORIDE 0.9% 1000ML 1,000 ML IV SCH ×2 (00:36→13:39)
[2017-04-25 03:42] VITALS: BP 114/66; PULSE 75; TEMP 37.2; O2SAT 95
[2017-04-25] MEDS: LEVOTHYROXINE 50 MCG TAB PO SCH (06:08)
[2017-04-25 06:39] LABS: BASO % 0.2 %; BASO ABS # 0.01 K/uL (0-0.2); COMPLETE YES; EOS % 2.2 %; HEMATOCRIT 31.3 % (42-52); LYMPH % 11.3 %; LYMPH ABS # 0.66 K/uL (1.2-3.4); MEAN CELL VOLUME 88.4 fL (80-100); MEAN CORPUSCULAR HEMOGLOBIN 30.2 pg (25-34); MEAN CORPUSCULAR HGB CONC 34.2 g/dl (32-36); MEAN PLATELET VOLUME 9.1 fL (7.4-10.4); MONO % 13.3 %; PLATELET COUNT 103 K/uL (130-400); RED BLOOD COUNT 3.54 M/uL (4.7-6.1); WHITE BLOOD COUNT 5.85 K/uL (4.8-10.8)
[2017-04-25 07:11] LABS: BUN/CREATININE RATIO 22.9 (10-20); CALCIUM 8.3 mg/dl (8.5-10.1); CREATININE 0.68 mg/dl (0.60-1.40); POTASSIUM 3.6 mmol/L (3.5-5.1)
[2017-04-25 07:13] LABS: ALB/GLOB RATIO 0.7 (0.9-2)
[2017-04-25 07:35] VITALS: BP 145/74; PULSE 82; TEMP 36.8; O2SAT 96
[2017-04-25 07:54] VITALS: O2SAT 96
[2017-04-25] MEDS: METHADONE HCL 5 MG TAB PO SCH ×3 (08:27→21:38)
--- NOTE | 2017-04-25 08:53 | CONSULTATION REPORT ---
DATE OF CONSULTATION: 04/25/2017 DATE OF CONSULTATION: 04/25/2017 SUMMARY: This is a 66-year-old gentleman known to me for placing an MRI compatible port in the left subclavian back in November 2015. The gentleman had had a diagnosis of rectal cancer back in July 2015. At that time underwent adjuvant therapy and then was referred to Dr. Vega in [place] where according to the patient underwent a resection, but could not be reanastomosed and ended up with a left lower quadrant colostomy. A few months later, the colostomy needed to be revised and was placed in the transverse area of the colon. The patient denies that he has had any mucus fistula distal to that or any other drainage other than the colostomy that was placed up higher. Following that he has been seen regularly by oncologist who at this present time according to the patient are not going to administer him any more chemotherapy. By CAT scan that he had on this admission shows some progression of disease in the liver and some nodules in the lung. The patient lives in [facility]. He has son-in-law and daughter that are quite attentive to him, in fact the present symptomatology started approximately 4 days ago where the patient was experiencing more than unusual pain in the left lower quadrant down across the abdomen. He had had previous radiation treatments to that area, did not think much of it, but the pain intensified until yesterday morning as the son-in-law was helping him bathe noticed the redness in the side and spontaneous drainage of an area with significant amount of purulent drainage and came into the Emergency Room where he was found by CAT scan to have what appears to be a fistula in the left of the midline incision. I am not sure if this communicates with the bowel, may be secondary to just underneath the subcutaneous tissue which is extensive and also slightly intraabdominally. I reviewed the CAT scan this morning with Dr. Soares to try to make heads or tails as the patient had denied that he has had any mucus fistula identified at the site of this. Whether spontaneous drainage from the remnant of the descending colon, it certainly does not appear to have any succuss entericus at this time. Having said this, I think we will ask for records from the past surgeries in [place] to try to figure out what was done intraabdominally. PAST MEDICAL HISTORY: Pretty much unremarkable other than the surgery that he had colorectal and the A-port. The patient is routinely on methadone for significant amount of pain. He has taken up to 5 mg t.i.d. sometimes more. He is on metformin for slight diabetes. PHYSICAL EXAMINATION: GENERAL: As I see him this morning, Joseph is resting fairly comfortably. He is in no acute distress. HEAD: Normocephalic. EYES: PERRLA. The sclerae is nonicteric. NECK: There is no cervical lymphadenopathy. The A-port site is working well, it is infusing. CHEST AND LUNGS: Clear. HEART: Normal sinus rhythm. ABDOMEN: Soft, it is nontender. There is very little cellulitis, if anything just in an area left of the midline incision which is extending approximately 1/4 of an inch, spontaneous drainage that if you push in that area you get some whitish purulent drainage. The cellulitis is very minimal around the area. There is no other abdominal wall findings. The colostomy has a bag in the transverse colon area. VITAL SIGNS: Showed a temperature of 36.8, pulse 82, respirations 16, blood pressure 145/74, O2 sats 96 on room air. LABORATORY STUDY: Showed a white count of 10.67 when he came in with a slight left shift. This morning his white count is down to 5.85 with no left shift. Laboratory studies liver function tests are fairly normal. He had a slight elevated alkaline phosphatase yesterday, that today is within normal. The albumin is 2.4. IMPRESSION: At this point, there is no need for any surgical drainage. The patient spontaneously draining this area and hopefully will resolve. We will try to get the records from [place] to try to identify the etiology of this and may make further recommendations, but at this time I would continue with antibiotics and local wound care, probably a VAC system may be beneficial to place in the area. I know that a wound consultation has been placed. Thank you for allowing us to participate in the care your patient.
[2017-04-25] MEDS: INSULIN ASPART 100 UNITS/ML 3 ML PEN SC SCH ×4 (09:51→21:00)
[2017-04-25] MEDS: SERTRALINE HCL 100 MG TAB PO SCH (09:52)
[2017-04-25] MEDS: CARBAMAZEPINE 200 MG TABCR PO SCH (09:52)
[2017-04-25] MEDS: FUROSEMIDE 40 MG TAB PO SCH (09:53)
[2017-04-25] MEDS: LISINOPRIL 10 MG TAB PO SCH (09:53)
[2017-04-25] MEDS: PRAVASTATIN SOD 40 MG TAB PO SCH (09:53)
--- NOTE | 2017-04-25 10:04 | Oncology Consultation ---
Oncology/Heme Consultation Date of Consultation: Apr 25, 2017. Attending Physician: Darnell Roblero M.D. Reason for Consultation: History of colon carcinoma History of Present Illness Mr. Malone is a 66-year-old gentleman with a history of colon carcinoma. The tumor was resected in August 2015. It was a PT3N to a lesion. 4 regional lymph nodes were involved. Microsatellite was stable. He was treated adjuvantly with FOLFOX that was completed in June 2016. He is now admitted with exquisite pain in the lower left flank with about 10 days to 2 weeks of skin discoloration with erythema. Yesterday the skin broke with purulent material being expressed. He is now admitted for treatment of abscess\cellulitis. With his evaluation a CT scan of the chest abdomen and pelvis reflects to pulmonary nodules that have enlarged slightly when compared to prior scans and there is a hint of defects within the liver that are new and suggestive of metastatic disease. His CEA has recently been noted to be slightly elevated or more elevated than before. Our notes reflect that a recent colonoscopy was normal with no evidence of recurrent disease. 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 Past Medical/Surgical History Medical Problems: (1) Abdominal wall cellulitis Status: Acute Social History Smoking Status: Never Smoker Smokeless Tobacco Use: No Drug Use: none Occupation Status: retired Allergies Coded Allergies: Beta Adrenergic Blockers (Unverified Allergy, Intermediate, hives, 04/24/17 ) Citalopram (Verified Allergy, Intermediate, hives, 04/24/17) Codeine (Verified Allergy, Intermediate, hives, 04/24/17) Iodine (Verified Allergy, Intermediate, hives, 04/24/17) Metronidazole (Unverified Allergy, Intermediate, hives, 04/24/17) Povidone Iodine (Unverified Allergy, Intermediate, hives, 04/24/17) Atorvastatin (Verified Allergy, Mild, cramps and rash, 04/24/17) Pratt Blue FCF (Unverified Allergy, Mild, tightening of throat, rash and hives, 04/24/17) Dextromethorphan (Unverified Allergy, Mild, tightening of throat, rash and hives, 04/24/17) Lisinopril (Verified Allergy, Mild, rash, 01/17/16) Propylene Glycol (Unverified Allergy, Mild, tightening of throat, rash and hives, 04/24/17) Saccharin (Unverified Allergy, Mild, tightening of throat, rash and hives , 04/24/17) Sodium Benzoate (Unverified Allergy, Mild, tightening of throat, rash and hives, 04/24/17) Tramadol (Verified Allergy, Mild, tightening of throat, 04/24/17) Uncoded Allergies: DIAL SOAP (Allergy, Intermediate, rash, 08/31/15) OPIUM NARCOTICS (Allergy, Intermediate, hives, 08/31/15) CLOTH AND PAPER TAPE (Allergy, Mild, rash, 11/27/15) Home Medications Scheduled Carbamazepine Extended Release (Tegretol Xr), 400 MG PO QAM Furosemide (Lasix), 40 MG PO QAM Levothyroxine Sodium (Levothyroxine Sodium), 50 MCG PO QAM Lisinopril (Lisinopril), 10 MG PO DAILY Metformin Hcl (Glucophage), 500 MG PO BID Methadone Hcl (Dolophine), 5 MG PO TID Mirtazapine (Remeron), 30 MG PO HS Nitroglycerin (Nitroglycerin), 1 TAB SL prn Pravastatin Sodium (Pravastatin Sodium), 40 MG PO DAILY Sertraline HCl (Sertraline HCl), 100 MG PO DAILY Scheduled PRN Ondansetron Tab (Zofran), 8 MG PO Q6H PRN for Nausea Current Inpatient Medications Current Inpatient Medications Medications (Trade) Dose Ordered Sig/Lorenzo Route Start Time Stop Time Status Last Admin Dose Admin Acetaminophen (Tylenol Tab) 650 mg Q4H PRN PO 04/24/17 21:30 05/24/17 21:29 Magnesium Hydroxide (Milk Of Magnesia Susp) 30 ml Q6H PRN PO 04/24/17 21:30 05/24/17 21:29 Polyethylene (Miralax Powder Packet) 17 gm DAILY PRN PO 04/24/17 21:30 05/24/17 21:29 Ondansetron HCl (Zofran Inj) 4 mg Q6H PRN IV 04/24/17 21:30 05/24/17 21:29 Furosemide (Lasix Tab) 40 mg QAM PO 04/25/17 09:00 05/25/17 08:59 04/25/17 09:53 40 MG Levothyroxine Sodium (Synthroid Tab) 50 mcg DAILYBB PO 04/25/17 06:30 05/25/17 06:59 04/25/17 06:08 50 MCG Lisinopril (Zestril Tab) 10 mg DAILY PO 04/25/17 09:00 05/25/17 08:59 04/25/17 09:53 10 MG Methadone HCl (Dolophine Tab) 5 mg TID PO 04/24/17 23:30 05/08/17 23:29 04/25/17 08:27 5 MG Mirtazapine (Remeron Tab) 30 mg HS PO 04/25/17 21:00 05/25/17 20:59 Pravastatin Sodium (Pravachol Tab) 40 mg DAILY PO 04/25/17 09:00 05/25/17 08:59 04/25/17 09:53 40 MG Sertraline HCl (Zoloft Tab) 100 mg DAILY PO 04/25/17 09:00 05/25/17 08:59 04/25/17 09:52 100 MG Carbamazepine (Tegretol-Xr (Do Not Crush)) 400 mg QAM PO 04/25/17 09:00 05/25/17 08:59 04/25/17 09:52 400 MG Insulin Aspart (novoLOG ASPART) SLIDING SCALE G... ACHS SC 04/25/17 06:30 05/25/17 06:59 Clindamycin Phosphate 300 mg/ Dextrose 52 ml @ 100 mls/hr Q8H IV 04/25/17 00:00 05/05/17 00:00 04/25/17 08:28 100 MLS/HR Vancomycin HCl 1500 mg/Sodium Chloride 500 ml @ 200 mls/hr Q8H IV 04/25/17 12:00 05/05/17 11:59 Vancomycin HCl (Consult) 1 ea UD PRN N/A 04/24/17 23:00 05/24/17 22:59 Heparin Sodium (Porcine) (Heparin 100 Unit/ml 5ml Flush) 5 ml PRN PRN IV 04/24/17 23:45 05/24/17 23:44 Sodium Chloride 1,000 ml @ 80 mls/hr [id number] IV 04/25/17 00:15 05/25/17 00:14 04/25/17 00:36 80 MLS/HR Review of Systems Constitutional: Negative for night sweats, or fever Eyes: Negative for event change of vision ENT: Negative for epistaxis, nasal discharge, sore throat, or deafness Cardiovascular: Negative for chest pain, palpitations, dizziness, diaphoresis Respiratory: Negative for new shortness of breath,hemoptysis, or purulent cough Gastrointestinal: Negative for diarrhea, hematemesis, melena, nausea, vomiting , or dyspepsia Integumentary (skin): Negative for rash or jaundice discoloration. Again he has developed a diffuse erythema involving the lower left flank that is tender and now an area expressing purulent material Genitourinary: Negative for urinary frequency, hematuria, or dysuria Neurological: Negative for weakness, seizure activity, headache, or dizziness Lymphatic/Hematologic: Negative for petechiae, bleeding or new adenopathy Musculoskeletal: Negative for new joint or back pain Allergic/Immunologic: Negative for unusual rash or pruritis. Physical Exam Date Time Temp Pulse Resp B/P (MAP) Pulse Ox O2 Delivery O2 Flow Rate FiO2 04/25/17 07:54 Room Air 04/25/17 07:35 36.8 82 16 145/74 (97) 96 Room Air 04/25/17 03:42 37.2 75 20 114/66 (82) 95 2.0 04/24/17 22:18 Room Air 04/24/17 22:00 71 18 132/72 97 Room Air 04/24/17 21:09 87 04/24/17 20:02 69 16 132/60 96 Room Air 04/24/17 17:53 37.1 75 16 130/75 97 Room Air 04/24/17 17:09 85 04/24/17 16:31 36.7 111 17 145/86 95 Room Air Constitutional: vitals are stable. Eyes: Eyes are DAYRON EOMI without conjuctival erythema or icterus. ENT: External examination was negative for masses. Neck: Negative for masses or palpable thyromegaly Respiratory: Lung sounds were generally clear bilaterally Cardiovascular: Heart was RRR without significant murmur, gallops aoe rubs Gastrointestinal: No palpable hepatic or splenomegaly. The abdomen was soft midline colostomy appears to be functioning. Finally he does have purulent material being expressed from an area of erythema in the lower left flank. Lymphatic system: there was no palpable peripheral lymphadenopathy Musculoskeletal System: The musculoskeletal system seemed concordant with age. Skin: The skin was negative for jaundice. As above Neurologic exam: The exam was negative for any focal findings. Deep tendon reflexes were equal and symmetrical. Psychiatric exam: Was essentially negative with normal mood and effect. Extremities: Negative for edema erythema Laboratory Results Last 24 Hours Test 04/24/17 16:55 04/25/17 06:20 04/25/17 08:37 White Blood Count 10.67 K/uL 5.85 K/uL Red Blood Count 3.97 M/uL 3.54 M/uL Hemoglobin 12.2 g/dL 10.7 g/dL Hematocrit 35.0 % 31.3 % Mean Corpuscular Volume 88.2 fL 88.4 fL Mean Corpuscular Hemoglobin 30.7 pg 30.2 pg Mean Corpuscular Hemoglobin Concent 34.9 g/dl 34.2 g/dl Platelet Count 113 K/uL 103 K/uL Mean Platelet Volume 9.7 fL 9.1 fL Neutrophils (%) (Auto) 79.0 % 73.0 % Lymphocytes (%) (Auto) 9.2 % 11.3 % Monocytes (%) (Auto) 11.0 % 13.3 % Eosinophils (%) (Auto) 0.4 % 2.2 % Basophils (%) (Auto) 0.1 % 0.2 % Neutrophils # (Auto) 8.44 K/uL 4.27 K/uL Lymphocytes # (Auto) 0.98 K/uL 0.66 K/uL Monocytes # (Auto) 1.17 K/uL 0.78 K/uL Eosinophils # (Auto) 0.04 K/uL 0.13 K/uL Basophils # (Auto) 0.01 K/uL 0.01 K/uL RDW Standard Deviation 44.6 fL 45.0 fL RDW Coefficient of Variation 13.6 % 13.7 % Immature Granulocyte % (Auto) 0.3 % 0.0 % Immature Granulocyte # (Auto) 0.03 K/uL 0.00 K/uL Prothrombin Time 12.0 SECONDS Prothromb Time International Ratio 1.1 Activated Partial Thromboplast Time 42.0 SECONDS Partial Thromboplastin Ratio 1.6 Sodium Level 132 mmol/L 135 mmol/L Potassium Level 3.6 mmol/L 3.6 mmol/L Chloride Level 98 mmol/L 102 mmol/L Carbon Dioxide Level 28 mmol/L 27 mmol/L Anion Gap 6.0 mmol/L 6.0 mmol/L Blood Urea Nitrogen 16 mg/dl 16 mg/dl Creatinine 0.82 mg/dl 0.68 mg/dl Est Creatinine Clear Calc Drug Dose 112.6 ml/min 135.8 ml/min Estimated GFR () 107.6 116.2 Estimated GFR (Non- 92.8 100.2 BUN/Creatinine Ratio 19.8 22.9 Random Glucose 157 mg/dl 104 mg/dl Calcium Level 8.8 mg/dl 8.3 mg/dl Total Bilirubin 1.2 mg/dl 1.0 mg/dl Direct Bilirubin 0.4 mg/dl Aspartate Amino Transf (AST/SGOT) 12 U/L 10 U/L Alanine Aminotransferase (ALT/SGPT) 14 U/L 13 U/L Alkaline Phosphatase 140 U/L 117 U/L Total Protein 6.8 gm/dl 5.9 gm/dl Albumin 2.7 gm/dl 2.4 gm/dl Hepatitis C Antibody Screen NEG Globulin 3.5 gm/dl Albumin/Globulin Ratio 0.7 Bedside Glucose 105 mg/dl Assessment & Plan History of colon carcinoma node positive. Status post adjuvant chemotherapy with recent CT scans done with this admission as to suggest progression of disease both lung and liver. He is also being treated now for an underlying cellulitis\cellulitis abscess. We will arrange for a PET CT scan as an outpatient and follow up. His CEA should be updated. He will have a follow-up in our clinic in the next few weeks. Because of this abscess or cellulitis is unclear. Pain is been a serious issue with pain not just over the abscess area but generally. He tends to use a fair amount of methadone. Perhaps at this point it would be very pertinent to involve Dr. Smiley Mccoy and will place that consult.
[2017-04-25 10:55] VITALS: BP 136/81; PULSE 89; TEMP 36.5; O2SAT 97
[2017-04-25] MEDS ORDERED: VANCOMYCIN INJ 1,500 MG in SODIUM CHLORIDE 0.9% 500ML 500 ML IV SCH (12:00)
[2017-04-25] MEDS: ONDANSETRON INJ 2 MG/ML 2 ML VIAL IV PRN ×2 (12:23→18:16)
--- NOTE | 2017-04-25 13:14 | Family Medicine Progress Note ---
Progress Note Date of Service Apr 25, 2017. Subjective Pt evaluation today including: conversation w/ patient, physical exam, chart review, lab review, review of studies Pain: Patient states he is have 11/10 pain over the LLQ of the abdomen Voiding: no voiding problems, no incontinence Patient is resting comfortably in bed this morning with no acute complaints. Says he is having severe pain with any palpation of the LLQ. Also gave long history about pain at home and complex pain medicine regimen. Says he is always a 11/10 pain at home. Also very distressed because of his condition constantly taking a turn for the worse and when he thinks he is improving he has another setback. Constitutional: + fatigue, No fever, No chills, No sweats ENT: No sore throat Respiratory: No cough, No sputum, No wheezing Cardiovascular: No chest pain, No orthopnea, No palpitations Abdomen: + pain, + nausea, + problem reported (LLQ Pain. Pus coming out of area that appears inflamed. Discharge is thick and yellow.), No vomiting, No diarrhea, No constipation, No GI bleeding Psychiatric: + anxiety, No depression symptoms Medications Current Inpatient Medications Medications (Trade) Dose Ordered Sig/Lorenzo Route Start Time Stop Time Status Last Admin Dose Admin Acetaminophen (Tylenol Tab) 650 mg Q4H PRN PO 04/24/17 21:30 05/24/17 21:29 Magnesium Hydroxide (Milk Of Magnesia Susp) 30 ml Q6H PRN PO 04/24/17 21:30 05/24/17 21:29 Polyethylene (Miralax Powder Packet) 17 gm DAILY PRN PO 04/24/17 21:30 05/24/17 21:29 Ondansetron HCl (Zofran Inj) 4 mg Q6H PRN IV 04/24/17 21:30 05/24/17 21:29 04/25/17 12:23 4 MG Furosemide (Lasix Tab) 40 mg QAM PO 04/25/17 09:00 05/25/17 08:59 04/25/17 09:53 40 MG Levothyroxine Sodium (Synthroid Tab) 50 mcg DAILYBB PO 04/25/17 06:30 05/25/17 06:59 04/25/17 06:08 50 MCG Lisinopril (Zestril Tab) 10 mg DAILY PO 04/25/17 09:00 05/25/17 08:59 04/25/17 09:53 10 MG Methadone HCl (Dolophine Tab) 5 mg TID PO 04/24/17 23:30 05/08/17 23:29 04/25/17 13:42 5 MG Mirtazapine (Remeron Tab) 30 mg HS PO 04/25/17 21:00 05/25/17 20:59 Pravastatin Sodium (Pravachol Tab) 40 mg DAILY PO 04/25/17 09:00 05/25/17 08:59 04/25/17 09:53 40 MG Sertraline HCl (Zoloft Tab) 100 mg DAILY PO 04/25/17 09:00 05/25/17 08:59 04/25/17 09:52 100 MG Carbamazepine (Tegretol-Xr (Do Not Crush)) 400 mg QAM PO 04/25/17 09:00 05/25/17 08:59 04/25/17 09:52 400 MG Insulin Aspart (novoLOG ASPART) SLIDING SCALE G... ACHS SC 04/25/17 06:30 05/25/17 06:59 Clindamycin Phosphate 300 mg/ Dextrose 52 ml @ 100 mls/hr Q8H IV 04/25/17 00:00 05/05/17 00:00 04/25/17 17:58 100 MLS/HR Vancomycin HCl (Consult) 1 ea UD PRN N/A 04/24/17 23:00 05/24/17 22:59 Heparin Sodium (Porcine) (Heparin 100 Unit/ml 5ml Flush) 5 ml PRN PRN IV 04/24/17 23:45 05/24/17 23:44 Sodium Chloride 1,000 ml @ 80 mls/hr [id number] IV 04/25/17 00:15 05/25/17 00:14 04/25/17 13:39 80 MLS/HR Vancomycin HCl 1500 mg/Sodium Chloride 530 ml @ 200 mls/hr Q8H IV 04/25/17 20:00 05/05/17 11:59 Morphine Sulfate (MoRPHine SULFATE INJ) 2 mg Q2H PRN IV 04/25/17 17:00 05/09/17 16:59 Objective Vital Signs Date Time Temp Pulse Resp B/P (MAP) Pulse Ox O2 Delivery O2 Flow Rate FiO2 04/25/17 10:55 36.5 89 18 136/81 (99) 97 Room Air 04/25/17 08:00 Room Air 04/25/17 07:54 96 Room Air 04/25/17 07:35 36.8 82 16 145/74 (97) 96 Room Air 04/25/17 03:42 37.2 75 20 114/66 (82) 95 2.0 04/24/17 22:18 Room Air 04/24/17 22:00 71 18 132/72 97 Room Air 04/24/17 21:09 87 04/24/17 20:02 69 16 132/60 96 Room Air Physical Exam General Appearance: WD/WN, no apparent distress Respiratory/Chest: chest non-tender, lungs clear, normal breath sounds Cardiovascular: regular rate, rhythm, no edema, no gallop Abdomen: normal bowel sounds, soft, + pertinent finding (Tenderness with palpation of LLQ. Colostomy bag over midline has light brown fluid with no blood. LLQ has small opening that is draining yellow, thick discarge. Opening has surrounding erythema but no warmth to palpation.) Extremities: non-tender, no pedal edema, no calf tenderness Neurologic/Psychiatric: alert, normal mood/affect, oriented x 3 Laboratory Results Results Past 24 Hours Test 04/25/17 06:20 04/25/17 08:37 04/25/17 10:15 04/25/17 11:30 Range/Units White Blood Count 5.85 4.8-10.8 K/uL Red Blood Count 3.54 4.7-6.1 M/uL Hemoglobin 10.7 14.0-18.0 g/dL Hematocrit 31.3 42-52 % Mean Corpuscular Volume 88.4 80-100 fL Mean Corpuscular Hemoglobin 30.2 25-34 pg Mean Corpuscular Hemoglobin Concent 34.2 32-36 g/dl Platelet Count 103 130-400 K/uL Mean Platelet Volume 9.1 7.4-10.4 fL Neutrophils (%) (Auto) 73.0 % Lymphocytes (%) (Auto) 11.3 % Monocytes (%) (Auto) 13.3 % Eosinophils (%) (Auto) 2.2 % Basophils (%) (Auto) 0.2 % Neutrophils # (Auto) 4.27 1.4-6.5 K/uL Lymphocytes # (Auto) 0.66 1.2-3.4 K/uL Monocytes # (Auto) 0.78 0.11-0.59 K/uL Eosinophils # (Auto) 0.13 0-0.5 K/uL Basophils # (Auto) 0.01 0-0.2 K/uL RDW Standard Deviation 45.0 36.4-46.3 fL RDW Coefficient of Variation 13.7 11.5-14.5 % Immature Granulocyte % (Auto) 0.0 % Immature Granulocyte # (Auto) 0.00 0.00-0.02 K/uL Sodium Level 135 136-145 mmol/L Potassium Level 3.6 3.5-5.1 mmol/L Chloride Level 102 98-107 mmol/L Carbon Dioxide Level 27 21-32 mmol/L Anion Gap 6.0 3-11 mmol/L Blood Urea Nitrogen 16 7-18 mg/dl Creatinine 0.68 0.60-1.40 mg/dl Est Creatinine Clear Calc Drug Dose 135.8 ml/min Estimated GFR () 116.2 Estimated GFR (Non- 100.2 BUN/Creatinine Ratio 22.9 10-20 Random Glucose 104 70-99 mg/dl Calcium Level 8.3 8.5-10.1 mg/dl Total Bilirubin 1.0 0.2-1 mg/dl Aspartate Amino Transf (AST/SGOT) 10 15-37 U/L Alanine Aminotransferase (ALT/SGPT) 13 12-78 U/L Alkaline Phosphatase 117 45-117 U/L Total Protein 5.9 6.4-8.2 gm/dl Albumin 2.4 3.4-5.0 gm/dl Globulin 3.5 2.5-4.0 gm/dl Albumin/Globulin Ratio 0.7 0.9-2 Bedside Glucose 105 94 70-99 mg/dl Carcinoembryonic Antigen 16.9 0-2.5 ng/ml Test 04/25/17 17:06 Range/Units Bedside Glucose 123 70-99 mg/dl Assessment and Plan Patient is a 66 year old male with a past medical history of rectal cancer diagnosed in 2014 s/p colon resection, LLQ colostomy, and subsequent revision of the colostomy. He presents to the hospital with worsening pain, redness, and swelling over the LLQ of his abdomen. 1) LLQ Abdominal wall cellulitis with fistula - Abdominal CT from 8/31: Skin thickening and infiltration of L mid abdominal wall suggestive for cellulitis + LLQ mucous fistula - Wound Culture Gram Stain did not yield any positive - Vancomycin + Clindamycin day 1 - General Surgery Consult: At this time no need for surgical drainage - Wound Care Consultation - Pain Control: Home medication of 5mg Methadone TID + [place] 5/325mg q4h PRN for breakthrough pain - Palliative Care consult placed 2) New Lung and Hepatic Lesions - Oncology Consult: Plan to arrange for outpatient PET scan - These finding are new when compared to CT on 12/09 - CEA Level: 16.9 --> was 6.8 on 12/30/16 - Last chemo dose June 2016 - Palliative care consult 3) History of seizures - Tegretol 400mg once daily - No seizures in last 10 years - Obtain Tegretol level in tomorrow AM labs 4) Cirrhosis - CT Abd/Pelvis: Cirrhosis with portal hypertension as evidence by splenomegaly - LFT: Elevated T-Bili and Alk Phos on admission 5) Diabetes Mellitus - Last HbA1c of 5.6 on 03/11/17 - Hold Metformin - Insulin sliding scale 6) CAD - S/p cardiac arrest during segmental colon resection of his colon cancer - S/p 2 coronary vessel stents 6) Hypothyroidism - Last TSH Elevated - 4.99 on 03/11/17 - Synthroid 50mcg 7) Hyperlipidemia - Pravastatin 40mg daily 8) Hypertension - Lisinopril 10mg 9) Depression - Sertraline - Mirtazapine 10) DVT - Lovenox 40mg daily 11) Resuscitation status - Full Code Resident Tracking Resident Involvement: Resident Care Provided Care Provided: Adult Hospital Medicine Reviewed: Pt Seen/Exam by Me History Resident Physician Supervision Note: I interviewed and examined the patient. Discussed with Dr. Alex and agree with findings and plan as documented in the note. Any exceptions or clarifications are listed here: Patient is improved with pain now. He is afebrile. I discussed the case with the palliative care physician as far as pain management goes. Physical Exam Vitals reviewed General Appearance: WD/WN, no apparent distress Respiratory/Chest: chest non-tender, lungs clear, normal breath sounds Cardiovascular: regular rate, rhythm, no edema, no gallop Abdomen: normal bowel sounds, soft, + pertinent finding (Tenderness with palpation of LLQ. Colostomy bag over midline has moderate amount of light brown fluid with no blood. LLQ has small opening that is draining yellow, thick discharge. With mild erythema over left lower quadrant but as per patient is significantly improved from previous Extremities: non-tender, no pedal edema, no calf tenderness Neurologic/Psychiatric: alert, normal mood/affect, oriented x 3 66-year-old male with a history of colon cancer status post colostomy with revision, here with likely fistula formation and cellulitis of the abdomen. -Continue antibiotics and follow cultures -Appreciate oncology and surgical consultations -To have PET scan as an outpatient as likely has progressive disease -Appreciate palliative care consultation for pain management in the setting of malignancy Documented By: Pita Hackett
[2017-04-25] MEDS ORDERED: MoRPHine SULFATE 2 MG/ML CARP IV PRN (17:00)
[2017-04-25] MEDS ORDERED: HYDROCODONE/ACETAMOPHEN 5/325MG TAB PO PRN (18:30)
--- NOTE | 2017-04-25 18:51 | Palliative Care Consultation ---
Consultation Date of Consultation: Apr 25, 2017. Requesting Physician: Dr Jane Attending Physician: Darnell Roblero MD Reason for Consultation: pain management History of Present Illness Pt is a 66 yo male with h/o Colonrectal cancer - s/p resection and ostomy in Aug 2015. pt was doing well until 7 days [employer] when he started having LLQ abdominal pain. Pt noted acute onset of erythema and tenderness of abd wall. Pt was weak and son had pt get in bed and was getting him " washed up" when while washing his left side he had a gush of fluid from his abd wall - he states it was watery and yellow initially and then became more cloudy. He had a small open sore that continue to drain and he was admitted for IV antibiotics for cellulitis of abd wall. Pt had a CT scan that showed increase in size of previous RML and RLL lung nodules. He was also found to have a new liver lesion - suspicious for metastatic disease. Pt has had his pain managed by Dr Nath of Hem/Onc - he has been on escalating opioids and was started on methadone - pt reports he was on as much as 20 or 30 mg Q 8 hours - he was not able to get his methadone refilled and was off of it for some time. It was restarted at 5 mg TID on 04/03. Pt reports constant pain at a level of 11/10, but is able to ambulate to the bathroom, converses for long periods of time without grimace and is able to sit up without assist or grimace. Pt has not requested any additional pain meds today. Wound drainage was sent for gram stain - + PMN's , but no organisms seen - culture is pending . Pt has not had a fever, erythema is improving on IV antibiotics. 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 Surgical History: Resection with ostomy , Mediport, prostatectomy Family History HTN Social History Smoking Status: Never Smoker History of Alcohol Use: No Drug Use: none Housing Status: lives with family Occupation Status: retired Review of Systems Constitutional: + weakness, No fever, No chills Eyes: No worsening of vision ENT: No hearing loss Respiratory: No cough Cardiac: + edema, No chest pain Abdomen: + pain, + problem reported (new draining wound abdominal wall) Musculoskeletal: No joint pain Neurologic: + weakness, + balance problems Psychiatric: + problem reported (on Zoloft for depression) Heme: No abnormal bleeding/bruising Endo: + problem reported (Dm - on Metformin) Skin: + rash Allergies Coded Allergies: Beta Adrenergic Blockers (Unverified Allergy, Intermediate, hives, 04/24/17 ) Citalopram (Verified Allergy, Intermediate, hives, 04/24/17) Codeine (Verified Allergy, Intermediate, hives, 04/24/17) Iodine (Verified Allergy, Intermediate, hives, 04/24/17) Metronidazole (Unverified Allergy, Intermediate, hives, 04/24/17) Povidone Iodine (Unverified Allergy, Intermediate, hives, 04/24/17) Atorvastatin (Verified Allergy, Mild, cramps and rash, 04/24/17) [place] [facility] (Unverified Allergy, Mild, tightening of throat, rash and hives, 04/24/17) Dextromethorphan (Unverified Allergy, Mild, tightening of throat, rash and hives, 04/24/17) Lisinopril (Verified Allergy, Mild, rash, 01/17/16) Propylene Glycol (Unverified Allergy, Mild, tightening of throat, rash and hives, 04/24/17) Saccharin (Unverified Allergy, Mild, tightening of throat, rash and hives , 04/24/17) Sodium Benzoate (Unverified Allergy, Mild, tightening of throat, rash and hives, 04/24/17) Tramadol (Verified Allergy, Mild, tightening of throat, 04/24/17) Uncoded Allergies: DIAL SOAP (Allergy, Intermediate, rash, 08/31/15) OPIUM NARCOTICS (Allergy, Intermediate, hives, 08/31/15) CLOTH AND PAPER TAPE (Allergy, Mild, rash, 11/27/15) Medications Current Inpatient Medications Medications (Trade) Dose Ordered Sig/Lorenzo Route Start Time Stop Time Status Last Admin Dose Admin Acetaminophen (Tylenol Tab) 650 mg Q4H PRN PO 04/24/17 21:30 05/24/17 21:29 Magnesium Hydroxide (Milk Of Magnesia Susp) 30 ml Q6H PRN PO 04/24/17 21:30 05/24/17 21:29 Polyethylene (Miralax Powder Packet) 17 gm DAILY PRN PO 04/24/17 21:30 05/24/17 21:29 Ondansetron HCl (Zofran Inj) 4 mg Q6H PRN IV 04/24/17 21:30 05/24/17 21:29 04/25/17 18:16 4 MG Furosemide (Lasix Tab) 40 mg QAM PO 04/25/17 09:00 05/25/17 08:59 04/25/17 09:53 40 MG Levothyroxine Sodium (Synthroid Tab) 50 mcg DAILYBB PO 04/25/17 06:30 05/25/17 06:59 04/25/17 06:08 50 MCG Lisinopril (Zestril Tab) 10 mg DAILY PO 04/25/17 09:00 05/25/17 08:59 04/25/17 09:53 10 MG Methadone HCl (Dolophine Tab) 5 mg TID PO 04/24/17 23:30 05/08/17 23:29 04/25/17 13:42 5 MG Mirtazapine (Remeron Tab) 30 mg HS PO 04/25/17 21:00 05/25/17 20:59 Pravastatin Sodium (Pravachol Tab) 40 mg DAILY PO 04/25/17 09:00 05/25/17 08:59 04/25/17 09:53 40 MG Sertraline HCl (Zoloft Tab) 100 mg DAILY PO 04/25/17 09:00 05/25/17 08:59 04/25/17 09:52 100 MG Carbamazepine (Tegretol-Xr (Do Not Crush)) 400 mg QAM PO 04/25/17 09:00 05/25/17 08:59 04/25/17 09:52 400 MG Insulin Aspart (novoLOG ASPART) SLIDING SCALE G... ACHS SC 04/25/17 06:30 05/25/17 06:59 Clindamycin Phosphate 300 mg/ Dextrose 52 ml @ 100 mls/hr Q8H IV 04/25/17 00:00 05/05/17 00:00 04/25/17 17:58 100 MLS/HR Vancomycin HCl (Consult) 1 ea UD PRN N/A 04/24/17 23:00 05/24/17 22:59 Heparin Sodium (Porcine) (Heparin 100 Unit/ml 5ml Flush) 5 ml PRN PRN IV 04/24/17 23:45 05/24/17 23:44 Vancomycin HCl 1500 mg/Sodium Chloride 530 ml @ 200 mls/hr Q8H IV 04/25/17 20:00 05/05/17 11:59 Acetaminophen/ Hydrocodone Bitart ([place] 5/325 Tab) 1 tab Q4H PRN PO 04/25/17 18:30 05/09/17 18:29 Enoxaparin Sodium (Lovenox Inj) 40 mg DAILY@1800 SQ 04/25/17 18:30 05/25/17 18:29 Physical Exam Date Time Temp Pulse Resp B/P (MAP) Pulse Ox O2 Delivery O2 Flow Rate FiO2 04/25/17 10:55 36.5 89 18 136/81 (99) 97 Room Air 04/25/17 08:00 Room Air 04/25/17 07:54 96 Room Air 04/25/17 07:35 36.8 82 16 145/74 (97) 96 Room Air 04/25/17 03:42 37.2 75 20 114/66 (82) 95 2.0 04/24/17 22:18 Room Air 04/24/17 22:00 71 18 132/72 97 Room Air 04/24/17 21:09 87 04/24/17 20:02 69 16 132/60 96 Room Air General Appearance: no apparent distress Eyes: EOMI ENT: hearing grossly normal, + pertinent finding (poor dentition) Neck: supple Respiratory: lungs clear Cardiovascular: regular rate, rhythm, + pertinent finding (trace LE edema) Abdomen: normal bowel sounds, + pertinent finding (tender in area of erythema - rest of abdomen NT to palaption) Musculoskeletal: abnormal strength Neurologic/Psychiatric: alert, oriented x 3 Skin: + rash (L side of abdominal wall with central draining wound) Laboratory Results Last 24 Hours Test 04/25/17 06:20 04/25/17 08:37 04/25/17 10:15 04/25/17 11:30 White Blood Count 5.85 K/uL Red Blood Count 3.54 M/uL Hemoglobin 10.7 g/dL Hematocrit 31.3 % Mean Corpuscular Volume 88.4 fL Mean Corpuscular Hemoglobin 30.2 pg Mean Corpuscular Hemoglobin Concent 34.2 g/dl Platelet Count 103 K/uL Mean Platelet Volume 9.1 fL Neutrophils (%) (Auto) 73.0 % Lymphocytes (%) (Auto) 11.3 % Monocytes (%) (Auto) 13.3 % Eosinophils (%) (Auto) 2.2 % Basophils (%) (Auto) 0.2 % Neutrophils # (Auto) 4.27 K/uL Lymphocytes # (Auto) 0.66 K/uL Monocytes # (Auto) 0.78 K/uL Eosinophils # (Auto) 0.13 K/uL Basophils # (Auto) 0.01 K/uL RDW Standard Deviation 45.0 fL RDW Coefficient of Variation 13.7 % Immature Granulocyte % (Auto) 0.0 % Immature Granulocyte # (Auto) 0.00 K/uL Sodium Level 135 mmol/L Potassium Level 3.6 mmol/L Chloride Level 102 mmol/L Carbon Dioxide Level 27 mmol/L Anion Gap 6.0 mmol/L Blood Urea Nitrogen 16 mg/dl Creatinine 0.68 mg/dl Est Creatinine Clear Calc Drug Dose 135.8 ml/min Estimated GFR () 116.2 Estimated GFR (Non- 100.2 BUN/Creatinine Ratio 22.9 Random Glucose 104 mg/dl Calcium Level 8.3 mg/dl Total Bilirubin 1.0 mg/dl Aspartate Amino Transf (AST/SGOT) 10 U/L Alanine Aminotransferase (ALT/SGPT) 13 U/L Alkaline Phosphatase 117 U/L Total Protein 5.9 gm/dl Albumin 2.4 gm/dl Globulin 3.5 gm/dl Albumin/Globulin Ratio 0.7 Bedside Glucose 105 mg/dl 94 mg/dl Carcinoembryonic Antigen 16.9 ng/ml Test 04/25/17 17:06 Bedside Glucose 123 mg/dl Assessment & Plan Palliative Performance Scale: 50 % (1) Chronic pain Status: Chronic Assessment & Plan: On methadone - appears comfortable on current dose - may add prn [place] Q 4 hours prn pain Will collaborate with Dr Nath regarding prior methadone dose (2) Abdominal wall cellulitis Status: Acute Assessment & Plan: improving with IV antibiotics (3) Diabetes Status: Chronic Assessment & Plan: controlled on Metformin (4) Depression Status: Chronic Assessment & Plan: controlled with Zoloft Plan to collaborate with Dr Nath regarding methadone - no reason to titrate at this time. Total time : 70 min with > 50% of time spent at pt's bedside discussing POC regarding pain meds. Collaborated with attending team regarding prn pain meds
[2017-04-25] MEDS: ENOXAPARIN 40 MG/0.4 ML SYR SQ SCH (19:33)
[2017-04-25] MEDS: VANCOMYCIN INJ 1,500 MG in SODIUM CHLORIDE 0.9% 500ML 500 ML IV SCH (20:23)
[2017-04-25] MEDS: MIRTAZAPINE TAB 15 MG TAB PO SCH (21:39)
[2017-04-25 23:40] VITALS: BP 152/70; PULSE 78; TEMP 36.4; O2SAT 94
[2017-04-26 03:11] VITALS: BP 120/70; PULSE 87; TEMP 36.5; O2SAT 95
[2017-04-26] MEDS: VANCOMYCIN INJ 1,500 MG in SODIUM CHLORIDE 0.9% 500ML 500 ML IV SCH ×2 (03:53→13:09)
[2017-04-26] MEDS: LEVOTHYROXINE 50 MCG TAB PO SCH (06:04)
[2017-04-26 06:08] LABS: BASO % 0.2 %; BASO ABS # 0.01 K/uL (0-0.2); COMPLETE YES; EOS % 3.1 %; HEMATOCRIT 31.6 % (42-52); IG% 0.2 %; LYMPH % 14.6 %; LYMPH ABS # 0.61 K/uL (1.2-3.4); MEAN CELL VOLUME 89.8 fL (80-100); MEAN CORPUSCULAR HEMOGLOBIN 30.1 pg (25-34); MEAN CORPUSCULAR HGB CONC 33.5 g/dl (32-36); MEAN PLATELET VOLUME 9.4 fL (7.4-10.4); MONO % 14.4 %; NEUT % 67.5 %; PLATELET COUNT 100 K/uL (130-400); RED BLOOD COUNT 3.52 M/uL (4.7-6.1); WHITE BLOOD COUNT 4.17 K/uL (4.8-10.8)
[2017-04-26 06:32] LABS: BUN/CREATININE RATIO 18.3 (10-20); CALCIUM 8.1 mg/dl (8.5-10.1); CREATININE 0.59 mg/dl (0.60-1.40); POTASSIUM 3.4 mmol/L (3.5-5.1)
[2017-04-26 06:35] LABS: ALB/GLOB RATIO 0.6 (0.9-2)
[2017-04-26 07:04] VITALS: BP 111/68; PULSE 75; TEMP 37; O2SAT 93
[2017-04-26 08:00] VITALS: O2SAT 93
[2017-04-26] MEDS: CLINDAMYCIN IV 300 MG in DEXTROSE 5% 50ML 50 ML IV SCH ×2 (08:07→16:27)
[2017-04-26] MEDS: INSULIN ASPART 100 UNITS/ML 3 ML PEN SC SCH ×4 (08:43→21:00)
[2017-04-26] MEDS: PRAVASTATIN SOD 40 MG TAB PO SCH (08:44)
[2017-04-26] MEDS: SERTRALINE HCL 100 MG TAB PO SCH (08:44)
[2017-04-26] MEDS: LISINOPRIL 10 MG TAB PO SCH (08:45)
[2017-04-26] MEDS: FUROSEMIDE 40 MG TAB PO SCH (08:45)
[2017-04-26] MEDS: CARBAMAZEPINE 200 MG TABCR PO SCH (08:45)
[2017-04-26] MEDS: METHADONE HCL 5 MG TAB PO SCH ×3 (08:50→21:36)
--- NOTE | 2017-04-26 11:03 | HEME/ONC PROGRESS NOTE ---
DATE: 04/26/2017 DIAGNOSES: 1. Left lower quadrant abdominal wall cellulitis with fistula. 2. Metastatic colorectal cancer (lung and hepatic metastasis). 3. Seizure disorder. 4. Cirrhosis of the liver. 5. Diabetes mellitus. SUBJECTIVE: Mr. Malone was seen and examined at bedside today. He was in the midst of changing his stoma bag. Pain reasonably well controlled. Pain management on board added 4 Dilaudid onto methadone regimen. CT scan on admission reveals 2 new pulmonary lesions in the right middle and lower lobes as well as a hepatic lesion that was not previously documented. CEA level measures 16.9 on admission. Mr. Malone appears comfortable and has not voiced any complaints. He is aware of the new radiographic findings and need for salvage chemotherapy upon discharge. PHYSICAL EXAMINATION: GENERAL: He is in no acute distress. VITAL SIGNS: Temperature 97.0, pulse 75, respirations 18, blood pressure 111/68. SKIN: Without rash or lesion. Open 3 cm wound just left distally from the umbilicus with active drainage. Small amount of surrounding erythema. HEENT: Oral mucosa without erythema or ulceration. NECK: Supple. HEART: Regular rate and rhythm. No clicks, rubs, murmurs or gallops. LUNGS: Clear to auscultation bilaterally. ABDOMEN: Soft, nontender, nondistended. Stoma functional. EXTREMITIES: Trace peripheral edema bilaterally. NEUROLOGIC: Grossly intact. LABORATORY DATA: WBC count 4170, hemoglobin 10.6, platelet count 100,000. Sodium 139, potassium 3.4, chloride 105, carbon dioxide 28, BUN 11, creatinine 0.59. Albumin 2.2. IMPRESSION: 1. Left lower quadrant abdominal wall cellulitis with fistula. 2. Metastatic colorectal cancer. PLAN: Mr. Malone was seen and examined and discussed most recent CT findings. Agree with current medical management including antibiotics and wound care consult. I understand pain management is now involved which I appreciate greatly. PET scan is pending upon discharge. His CEA level has risen from 6.8 in December up to 16.9. Once Mr. aMlone is medically stable, he may be discharged to discuss salvage chemotherapy, most likely irinotecan based regimen plus or minus bevacizumab. Thank you for assisting us in the care of this very pleasant gentleman. I will continue to follow him periodically during his hospital stay.
--- NOTE | 2017-04-26 11:25 | PROGRESS NOTE ---
DATE: 04/26/2017 Joseph is resting comfortably and no acute issues going on. His last vitals showed a temperature of 37, pulse 75, respirations 18, blood pressure 111/68, O2 sats 93 on room air. The abdomen is benign. He still has moderate amount of drainage from a bag placed over the spontaneous draining site left of the midline incision. Laboratory graves, this morning his white count is 4.17, hemoglobin 10.6. Other labs noted. At this point, there is nothing surgically that needs to be addressed. I would continue placing a bag over the fistulous tract. Consider a possibility this could be a fistulous tract into the functionalized colon. We are still awaiting the final records from [place] to try to identify exactly what he done. The patient is adamant that he did not have any incision where this fistulous drainage developed. The cellulitis is very minimal, so I think on a long run he will not need long-term antibiotics. IVAN
[2017-04-26] MEDS: ONDANSETRON INJ 2 MG/ML 2 ML VIAL IV PRN (13:09)
[2017-04-26 14:43] VITALS: BP 130/77; PULSE 67; TEMP 37.1; O2SAT 96
[2017-04-26 16:00] VITALS: O2SAT 96
[2017-04-26] MEDS ORDERED: POTASSIUM CHLORIDE 20 MEQ TABCR PO ONE (17:04)
--- NOTE | 2017-04-26 17:16 | Family Medicine Progress Note ---
Progress Note Date of Service Apr 26, 2017. Subjective Pt evaluation today including: conversation w/ patient, physical exam, chart review, lab review, conversation w/ wig sales consultant, review of inpatient medication list Pain: 13/10 PO Intake: good Voiding: no voiding problems Patient states he had a restful night Had 13/10 pain at 1 am and then received medication and the pain went away Denies any worsening pain or drainage around wound site Constitutional: No fever, No chills, No sweats Respiratory: No cough, No wheezing, No shortness of breath Cardiovascular: No chest pain, No edema, No palpitations Abdomen: + pain, + nausea, No vomiting Male : No dysuria Heme: No abnormal bleeding/bruising Skin: No rash, No itch, No new/changing skin lesions Medications Current Inpatient Medications Medications (Trade) Dose Ordered Sig/Lorenzo Route Start Time Stop Time Status Last Admin Dose Admin Acetaminophen (Tylenol Tab) 650 mg Q4H PRN PO 04/24/17 21:30 05/24/17 21:29 Magnesium Hydroxide (Milk Of Magnesia Susp) 30 ml Q6H PRN PO 04/24/17 21:30 05/24/17 21:29 Polyethylene (Miralax Powder Packet) 17 gm DAILY PRN PO 04/24/17 21:30 05/24/17 21:29 Ondansetron HCl (Zofran Inj) 4 mg Q6H PRN IV 04/24/17 21:30 05/24/17 21:29 04/26/17 13:09 4 MG Furosemide (Lasix Tab) 40 mg QAM PO 04/25/17 09:00 05/25/17 08:59 04/26/17 08:45 40 MG Levothyroxine Sodium (Synthroid Tab) 50 mcg DAILYBB PO 04/25/17 06:30 05/25/17 06:59 04/26/17 06:04 50 MCG Lisinopril (Zestril Tab) 10 mg DAILY PO 04/25/17 09:00 05/25/17 08:59 04/26/17 08:45 10 MG Methadone HCl (Dolophine Tab) 5 mg TID PO 04/24/17 23:30 05/08/17 23:29 04/26/17 14:40 5 MG Mirtazapine (Remeron Tab) 30 mg HS PO 04/25/17 21:00 05/25/17 20:59 04/25/17 21:39 30 MG Pravastatin Sodium (Pravachol Tab) 40 mg DAILY PO 04/25/17 09:00 05/25/17 08:59 04/26/17 08:44 40 MG Sertraline HCl (Zoloft Tab) 100 mg DAILY PO 04/25/17 09:00 05/25/17 08:59 04/26/17 08:44 100 MG Carbamazepine (Tegretol-Xr (Do Not Crush)) 400 mg QAM PO 04/25/17 09:00 05/25/17 08:59 04/26/17 08:45 400 MG Insulin Aspart (novoLOG ASPART) SLIDING SCALE G... ACHS SC 04/25/17 06:30 05/25/17 06:59 Clindamycin Phosphate 300 mg/ Dextrose 52 ml @ 100 mls/hr Q8H IV 04/25/17 00:00 05/05/17 00:00 04/26/17 16:27 100 MLS/HR Vancomycin HCl (Consult) 1 ea UD PRN N/A 04/24/17 23:00 05/24/17 22:59 Heparin Sodium (Porcine) (Heparin 100 Unit/ml 5ml Flush) 5 ml PRN PRN IV 04/24/17 23:45 05/24/17 23:44 Acetaminophen/ Hydrocodone Bitart ([place] 5/325 Tab) 1 tab Q4H PRN PO 04/25/17 18:30 05/09/17 18:29 04/26/17 00:03 1 TAB Enoxaparin Sodium (Lovenox Inj) 40 mg DAILY@1800 SQ 04/25/17 18:30 05/25/17 18:29 04/25/17 19:33 40 MG Objective Vital Signs Date Time Temp Pulse Resp B/P (MAP) Pulse Ox O2 Delivery O2 Flow Rate FiO2 04/26/17 14:43 37.1 67 18 130/77 (94) 96 Room Air 04/26/17 08:00 93 Room Air 2.0 04/26/17 07:04 37.0 75 18 111/68 (82) 93 Room Air 04/26/17 03:11 36.5 87 16 120/70 (87) 95 Room Air 04/26/17 00:15 Room Air 04/25/17 23:40 36.4 78 18 152/70 (97) 94 Room Air Physical Exam General Appearance: WD/WN, no apparent distress ENT: pharynx normal Respiratory/Chest: lungs clear, no respiratory distress, no accessory muscle use Cardiovascular: regular rate, rhythm, no JVD, no murmur Abdomen: normal bowel sounds, soft, + tenderness (mildly tender throughout), + pertinent finding (colostomy flushed to the skin without any surrounding erythema, LLQ wound draining serous like fluid (mild light pink cellulitis surrounding the area)) Extremities: non-tender, no calf tenderness, + pertinent finding (good peripheral pulses with haemosiderin deposition) Neurologic/Psychiatric: alert, normal mood/affect, oriented x 3 Laboratory Results Results Past 24 Hours Test 04/25/17 20:46 04/26/17 05:46 04/26/17 07:32 04/26/17 07:59 Range/Units Bedside Glucose 110 98 70-99 mg/dl White Blood Count 4.17 4.8-10.8 K/uL Red Blood Count 3.52 4.7-6.1 M/uL Hemoglobin 10.6 14.0-18.0 g/dL Hematocrit 31.6 42-52 % Mean Corpuscular Volume 89.8 80-100 fL Mean Corpuscular Hemoglobin 30.1 25-34 pg Mean Corpuscular Hemoglobin Concent 33.5 32-36 g/dl Platelet Count 100 130-400 K/uL Mean Platelet Volume 9.4 7.4-10.4 fL Neutrophils (%) (Auto) 67.5 % Lymphocytes (%) (Auto) 14.6 % Monocytes (%) (Auto) 14.4 % Eosinophils (%) (Auto) 3.1 % Basophils (%) (Auto) 0.2 % Neutrophils # (Auto) 2.81 1.4-6.5 K/uL Lymphocytes # (Auto) 0.61 1.2-3.4 K/uL Monocytes # (Auto) 0.60 0.11-0.59 K/uL Eosinophils # (Auto) 0.13 0-0.5 K/uL Basophils # (Auto) 0.01 0-0.2 K/uL RDW Standard Deviation 45.5 36.4-46.3 fL RDW Coefficient of Variation 13.7 11.5-14.5 % Immature Granulocyte % (Auto) 0.2 % Immature Granulocyte # (Auto) 0.01 0.00-0.02 K/uL Sodium Level 139 136-145 mmol/L Potassium Level 3.4 3.5-5.1 mmol/L Chloride Level 105 98-107 mmol/L Carbon Dioxide Level 28 21-32 mmol/L Anion Gap 6.0 3-11 mmol/L Blood Urea Nitrogen 11 7-18 mg/dl Creatinine 0.59 0.60-1.40 mg/dl Est Creatinine Clear Calc Drug Dose 155.7 ml/min Estimated GFR () 123.1 Estimated GFR (Non- 106.2 BUN/Creatinine Ratio 18.3 10-20 Random Glucose 101 70-99 mg/dl Calcium Level 8.1 8.5-10.1 mg/dl Total Bilirubin 0.5 0.2-1 mg/dl Aspartate Amino Transf (AST/SGOT) 14 15-37 U/L Alanine Aminotransferase (ALT/SGPT) 12 12-78 U/L Alkaline Phosphatase 109 45-117 U/L Total Protein 5.7 6.4-8.2 gm/dl Albumin 2.2 3.4-5.0 gm/dl Globulin 3.5 2.5-4.0 gm/dl Albumin/Globulin Ratio 0.6 0.9-2 Carbamazepine (Tegretol) Level 2.7 4-12 mcg/ml Test 04/26/17 11:38 04/26/17 16:55 Range/Units Bedside Glucose 105 101 70-99 mg/dl Assessment and Plan Patient is a 66 year old male with a past medical history of rectal cancer diagnosed in 2014 s/p colon resection, LLQ colostomy, and subsequent revision of the colostomy. He presented to the hospital with worsening pain, redness, and swelling over the LLQ of his abdomen. 1) LLQ Abdominal wall cellulitis with fistula - Abdominal CT from 04/24: Skin thickening and infiltration of L mid abdominal wall suggestive for cellulitis + LLQ mucous fistula - Wound Culture Gram Stain did not yield any positive - Culture grew group alpha strep. Likely strep viridans considering poor dental hygiene - Clindamycin day 2 and Vancomycin stopped today - General Surgery Consult: At this time no need for surgical drainage - Wound Care Consultation - Pain Control: Home medication of 5mg Methadone TID + [place] 5/325mg q4h PRN for breakthrough pain - Palliative Care consult 2) New Lung and Hepatic Lesions - Oncology Consult: Plan to arrange for outpatient PET scan and salvage chemotherapy - These finding are new when compared to CT on 12/09 - CEA Level: 16.9 --> was 6.8 on 12/30/16 - Last chemo dose June 2016 - Palliative care consult 3) History of seizures - Tegretol 400mg once daily - Tegretol level 2.7 - No seizures in last 10 years - Obtain Tegretol level in tomorrow AM labs 4) Cirrhosis - CT Abd/Pelvis: Cirrhosis with portal hypertension as evidence by splenomegaly - LFT: Elevated T-Bili and Alk Phos on admission 5) Diabetes Mellitus - Last HbA1c of 5.6 on 03/11/17 - Hold Metformin - Insulin sliding scale 6) CAD - S/p cardiac arrest during segmental colon resection of his colon cancer - S/p 2 coronary vessel stents 6) Hypothyroidism - Last TSH Elevated - 4.99 on 03/11/17 - Synthroid 50mcg 7) Hyperlipidemia - Pravastatin 40mg daily 8) Hypertension - Lisinopril 10mg 9) Depression - Sertraline - Mirtazapine 10) Hypokalemia - 3.4 today - supplement PO with 20meq bid - continue to follow electrolytes 11) DVT - Lovenox 40mg daily 12) Resuscitation status - DNR Continued [facility] stay due to: multiple IV medications needed Reviewed: Pt Seen/Exam by Me History Resident Physician Supervision Note: I interviewed and examined the patient. Discussed with Dr. Phillips and agree with findings and plan as documented in the note. Any exceptions or clarifications are listed here: Pt c/o nausea all day, not able to eat much. Also with much worsening liquid stools today since starting abx. h had one dose Lortab at midnight last night and is unsure if he has tolerated this before Physical Exam Vitals reviewed General Appearance: WD/WN, no apparent distress Respiratory/Chest: chest non-tender, lungs clear, normal breath sounds Cardiovascular: regular rate, rhythm, no edema, no gallop Abdomen: normal bowel sounds, soft, + pertinent finding (Tenderness with palpation of LLQ. Colostomy bag over midline has moderate amount of light brown fluid with no blood. LLQ has small opening that is not currently draining, With mild erythema over left lower quadrant but improved from previous Extremities: non-tender, no pedal edema, no calf tenderness Neurologic/Psychiatric: alert, normal mood/affect, oriented x 3 66-year-old male with a history of colon cancer status post colostomy with revision, here with likely fistula formation and cellulitis of the abdomen. Alpha strep in wound cx, narrow abx to [place] alone, but now with nausea and diarrhea--> unclear if from abx? Will switch to Rocephin and check C. diff -Continue antibiotics and follow final cultures -Appreciate oncology and surgical consultations -To have PET scan as an outpatient as likely has progressive disease -Appreciate palliative care consultation for pain management in the setting of malignancy--> stop Lortab as may be causing nausea Documented By: Pita Hackett
[2017-04-26] MEDS ORDERED: CEFTRIAXONE SOD INJ 1 GM in DEXTROSE 5% ADD-VANTAGE 50ML 50 ML IV SCH (18:00)
[2017-04-26] MEDS: ENOXAPARIN 40 MG/0.4 ML SYR SQ SCH (18:06)
[2017-04-26] MEDS: POTASSIUM CHLORIDE 20 MEQ TABCR PO SCH (21:36)
[2017-04-26] MEDS: MIRTAZAPINE TAB 15 MG TAB PO SCH (21:37)
[2017-04-27 00:27] VITALS: BP 123/72; PULSE 60; TEMP 36.6; O2SAT 92
[2017-04-27] MEDS ORDERED: VANCOMYCIN TROUGH SCH (03:30)
[2017-04-27] MEDS: LEVOTHYROXINE 50 MCG TAB PO SCH (06:17)
[2017-04-27 06:21] LABS: BASO % 0.3 %; BASO ABS # 0.01 K/uL (0-0.2); COMPLETE YES; EOS % 5.1 %; HEMATOCRIT 33.5 % (42-52); LYMPH % 23.8 %; LYMPH ABS # 0.93 K/uL (1.2-3.4); MEAN CELL VOLUME 89.1 fL (80-100); MEAN CORPUSCULAR HEMOGLOBIN 30.3 pg (25-34); MEAN PLATELET VOLUME 9.8 fL (7.4-10.4); MONO % 13.3 %; NEUT % 57.5 %; PLATELET COUNT 123 K/uL (130-400); RED BLOOD COUNT 3.76 M/uL (4.7-6.1); WHITE BLOOD COUNT 3.91 K/uL (4.8-10.8)
--- NOTE | 2017-04-27 06:52 | SURGERY PROGRESS NOTE ---
DATE: 04/27/2017 SUBJECTIVE: Joseph is doing much better. He said his abdominal pain has decreased significantly. The output from spontaneous drainage of abdominal wall abscess is greatly improved. OBJECTIVE: VITAL SIGNS: His last vitals showed him a temperature of 36.6, pulse 90, respirations 19, blood pressure 123/72, O2 sats 92% on room air. LABORATORY STUDIES: White count is 3.91, hemoglobin 11.4. He has no further left shift. IMPRESSION AND PLAN: At this point, I would continue local therapy for the spontaneously draining area, keeping an appliance on it and hopefully will stop with time. There is no surgery indicated. From my point of view, there is no need for prolonged antibiotics as the cellulitis is resolved. To follow up empirically in the office if he is discharged to see how he progresses clinically. IVAN
[2017-04-27 07:07] LABS: BUN/CREATININE RATIO 13.2 (10-20); CALCIUM 8.5 mg/dl (8.5-10.1); CREATININE 0.65 mg/dl (0.60-1.40); POTASSIUM 3.2 mmol/L (3.5-5.1)
[2017-04-27 07:09] LABS: ALB/GLOB RATIO 0.6 (0.9-2)
[2017-04-27 07:42] VITALS: BP 114/67; PULSE 61; TEMP 36.9; O2SAT 93
[2017-04-27 08:00] VITALS: O2SAT 93
[2017-04-27] MEDS: INSULIN ASPART 100 UNITS/ML 3 ML PEN SC SCH ×2 (08:45→12:37)
[2017-04-27] MEDS: POTASSIUM CHLORIDE 20 MEQ TABCR PO SCH (08:47)
[2017-04-27] MEDS: PRAVASTATIN SOD 40 MG TAB PO SCH (08:47)
[2017-04-27] MEDS: FUROSEMIDE 40 MG TAB PO SCH (08:47)
[2017-04-27] MEDS: CARBAMAZEPINE 200 MG TABCR PO SCH (08:47)
[2017-04-27] MEDS: SERTRALINE HCL 100 MG TAB PO SCH (08:47)
[2017-04-27] MEDS: LISINOPRIL 10 MG TAB PO SCH (08:47)
[2017-04-27] MEDS: METHADONE HCL 5 MG TAB PO SCH ×2 (08:50→13:38)
[2017-04-27 15:42] VITALS: BP 105/66; PULSE 62; TEMP 36.8; O2SAT 91
[2017-04-27] MEDS ORDERED: MCRK20 PO (16:06)
[2017-04-27] MEDS ORDERED: AMOX500T PO (16:06)
--- NOTE | 2017-04-27 16:12 | Discharge Instructions ---
Discharge Instructions Date of Service Apr 27, 2017. Admission Reason for Admission: Abdominal Wall Cellulitis Discharge Discharge Diagnosis / Problem: Abdominal fistula Discharge Goals Goal(s): Improve disease control, Diagnostic testing, Prevent Disease Progression Activity Recommendations Activity Limitations: per Instructions/Follow-up section . Instructions / Follow-Up Instructions / Follow-Up Your wound was found to be growing an organism call alpha streptococcus. We started treating you with antibiotics which appeared to improve your redness and drainage from your wound We are going to treat you for 4 more days with antibiotics. Please take these as prescribed. Please follow up with Dr. Moctezuma for further management as well as Dr. Nath for management of your cancer. You will need to get blood work done in 1 week in order to follow up with your potassium. Please follow this up with your PCP. If you have any worsening drainage from the wound or surrounding redness then please come back to the hospital. Current Hospital Diet Patient's current hospital diet: AHA Diet (Heart Healthy), Diabetes Type 2 Diet Discharge Diet Recommended Diet: AHA Diet (Heart Healthy), Diabetes Type 2 Diet Pending Studies Studies pending at discharge: no Laboratory Results Hemoglobin A1c Test 03/11/17 12:45 Range/Units Estimated Average Glucose 114 mg/dl Hemoglobin A1c 5.6 4.5-5.6 % Medical Emergencies . Who to Call and When: Medical Emergencies: If at any time you feel your situation is an emergency, please call 911 immediately. . Non-Emergent Contact Non-Emergency issues call your: Primary Care Provider, Surgeon . . "Provider Documentation" section prepared by Ramiro Phillips. . VTE Core Measure Inpt VTE Proph given/why not?: SCD's
[2017-04-27] MEDS ORDERED: AMOX875T PO (16:14)
[2017-04-27] MEDS ORDERED: POTASSIUM CHLORIDE 10 MEQ TABCR PO ONE (16:30)
[2017-04-27 17:02] VITALS: BP 105/66; PULSE 62; TEMP 36.8; O2SAT 91
--- NOTE | 2017-04-27 17:26 | Discharge Summary ---
Discharge Summary Date of Service Apr 27, 2017. (Ramiro Phillips MD) Discharge Summary Admission Date: Apr 24, 2017 at 21:30 Discharge Date: Apr 27, 2017 Discharge Disposition: Home Principal Diagnosis: Abdominal fistula Immunizations: Have You Had Influenza Vaccine: Yes History of Tetanus Vaccine?: Yes History of Pneumococcal: Yes History of Hepatitis B Vaccine: No Procedures: Abdomen/Pelvis CT CXR Consultations: Palliative Haem/Onc Surgery (Ramiro Phillips MD) Problems/Secondary Diagnoses: Metastatic colorectal cancer New Lung and Hepatic Lesions Seizure disorder Cirrhosis of liver on imaging with evidence of portal hypertension with splenomegaly Elevated T-Bili and Alk Phos Diabetes Mellitus II CAD Hypothyroidism Hyperlipidemia Hypertension Depression Hypokalemia (Pita Hackett MD) Medication Reconciliation New Medications: Amoxicillin & Pot Clavulanate (Augmentin 875-125 mg) 1 Tab Tab 1 TAB PO BID for 4 Days, #8 TAB Potassium Chloride (Klor-Con M20) 20 Meq Tabcr 20 MEQ PO DAILY for 14 Days, #14 TAB Continued Medications: Carbamazepine Extended Release (Tegretol Xr) 400 Mg Tabcr 400 MG PO QAM, TAB Furosemide (Lasix) 40 Mg Tab 40 MG PO QAM for 30 Days, #30 TAB 5 Refills Levothyroxine Sodium (Levothyroxine Sodium) 50 Mcg Tab 50 MCG PO QAM, #30 Lisinopril (Lisinopril) 10 Mg Tab 10 MG PO DAILY, #30 Metformin Hcl (Glucophage) 500 Mg Tab 500 MG PO BID, TAB Methadone Hcl (Dolophine) 5 Mg Tab 5 MG PO TID, #90 Mirtazapine (Remeron) 30 Mg Tab 30 MG PO HS, #30 Nitroglycerin (Nitroglycerin) 0.4 Mg/Hr Dis 1 TAB SL prn for chest pain Ondansetron Tab (Zofran) 8 Mg Tab 8 MG PO Q6H PRN for Nausea, TAB Pravastatin Sodium (Pravastatin Sodium) 40 Mg Tab 40 MG PO DAILY, #30 Sertraline HCl (Sertraline HCl) 100 Mg Tab 100 MG PO DAILY, #30 Discharge Exam Patient says his abdominal pain has improved Diarrhea has slowed down His erythema surrounding his wound has decreased He denies any fevers, night sweats or chills Review of Systems: Constitutional: No fever, No chills, No sweats Respiratory: No cough, No sputum, No shortness of breath Cardiovascular: No chest pain, No edema, No claudication, No palpitations Abdomen: + pain (11/10 pain around draining fistula tract), No nausea, No vomiting, No diarrhea Integumentary: + rash, + itch, + new/changing skin lesions Physical Exam: General Appearance: WD/WN, no apparent distress ENT: + pertinent finding (gingivitis and poor dental hygiene with yellow staining of teeth) Respiratory/Chest: lungs clear, no respiratory distress, no accessory muscle use Cardiovascular: regular rate, rhythm, no murmur, normal peripheral pulses Abdomen / GI: normal bowel sounds, soft, + tenderness (mild tenderness in LLQ around draining fistula tract), + pertinent finding (fistula tract in LLQ draining clear/yellow fluid, stoma bag above umbilicus. stoma flushed to the skin without any surrounding erythema) Extremities: no calf tenderness, no pedal edema, + pertinent finding ( haemosiderin deposition in lower extremities) Neurologic/Psychiatric: alert, normal mood/affect, oriented x 3 (Ramiro Phillips MD) Hospital Course Patient is a 66 year old male with a past medical history of rectal cancer diagnosed in 2015 s/p colon resection, LLQ colostomy, and subsequent revision of the colostomy. He presents to the hospital with worsening pain, redness, and swelling over the LLQ of his abdomen. He was found to have a draining fistula in the LLQ of his abdomen. 1) LLQ Abdominal wall cellulitis with fistula - Abdominal CT from 04/24: Skin thickening and infiltration of L mid abdominal wall suggestive for cellulitis + LLQ mucous fistula - Wound Culture grew alpha streptococcus - Vancomycin + Clindamycin started ----> D/C vanc after wound culture results and discharged on augmentin for 4 days to complete 7 day course - General Surgery Consult: At this time no need for surgical drainage ------> will follow up with general surgery as an outpatient - Wound Care Consultation ------> apply bandage to the area -----> surrounding cellulitis improved after starting antibiotics - Pain Control: Home medication of 5mg Methadone TID + [place] 5/325mg q4h PRN for breakthrough pain 2) New Lung and Hepatic Lesions - Oncology Consult: Plan to arrange for outpatient PET scan and salvage chemotherapy - These finding are new when compared to CT on 12/09 - CEA Level: 16.9 --> was 6.8 on 12/30/16 - Last chemo dose June 2016 3) History of seizures - Tegretol 400mg once daily - No seizures in last 10 years - Tegretol level 2.7 in the hospital 4) Cirrhosis - CT Abd/Pelvis: Cirrhosis with portal hypertension as evidence by splenomegaly - LFT: Elevated T-Bili and Alk Phos on admission 5) Diabetes Mellitus - Last HbA1c of 5.6 on 03/11/17 - Continue metformin on discharge 6) CAD - S/p cardiac arrest during segmental colon resection of his colon cancer - S/p 2 coronary vessel stents 6) Hypothyroidism - Last TSH Elevated - 4.99 on 03/11/17 - Synthroid 50mcg 7) Hyperlipidemia - Pravastatin 40mg daily 8) Hypertension - Lisinopril 10mg 9) Depression - Sertraline - Mirtazapine Total Time Spent: Less than 30 minutes This includes examination of the patient, discharge planning, medication reconciliation, and communication with other providers. (Ramiro Phillips MD) Discharge Instructions Please refer to the electronic Patient Visit Report (Discharge Instructions) for additional information. (Ramiro Phillips MD) Additional Copies To Misael Nath D.O.; Blair Vega M.D. Reviewed: Pt Seen/Exam by Me (Pita Hackett MD) History Resident Physician Supervision Note: I interviewed and examined the patient. Discussed with Dr. Phillips and agree with findings and plan as documented in the note. Any exceptions or clarifications are listed here: Still with some nausea but eating and drinking today, no further loose stools. Cellulitis completely resolved and afebrile. Physical Exam Vitals reviewed General Appearance: WD/WN, no apparent distress Respiratory/Chest: chest non-tender, lungs clear, normal breath sounds Cardiovascular: regular rate, rhythm, no edema, no gallop Abdomen: normal bowel sounds, soft, + pertinent finding (mild Tenderness with palpation of LLQ. Colostomy bag over midline has moderate amount of light brown stool with no blood. LLQ has small opening that is not currently draining, With no further erythema over left lower quadrant Extremities: non-tender, no pedal edema, no calf tenderness Neurologic/Psychiatric: alert, normal mood/affect, oriented x 3 66-year-old male with a history of colon cancer status post colostomy with revision, here with likely fistula formation and cellulitis of the abdomen. Alpha strep in wound cx, initially switched abx to Cl[place] but then had development of nausea and diarrhea--> C. diff negative. Nausea may have been from Lortab which was stopped--> send home on 7 day total course of Augmentin -Appreciate oncology and surgical consultations -To have PET scan as an outpatient as likely has progressive disease -Appreciate palliative care consultation for pain management in the setting of malignancy--> stop Lortab as may be causing nausea, continue methadone as per outpt prescriber Documented By: Pita Hackett (Pita Hackett MD)
== END 2017-04-27 18:15 | disposition home or self-care (01) | DRG 394 ==
LOC: C.EDB 16:17 → C.MS2W 21:30 → UNDOADMIN 21:30 → ENRESERV 21:43
PROVIDERS: ADMIT Family Medicine; ATTEND Family Medicine
DX: K63.2 Fistula of intestine (principal); L03.311 Cellulitis of abdominal wall; C78.7 Secondary malignant neoplasm of liver and intrahepatic bile duct; C78.00 Secondary malignant neoplasm of unspecified lung; C19 Malignant neoplasm of rectosigmoid junction; K76.6 Portal hypertension; E03.9 Hypothyroidism, unspecified; I10 Essential (primary) hypertension; E11.9 Type 2 diabetes mellitus without complications; E78.5 Hyperlipidemia, unspecified; G89.29 Other chronic pain; I25.10 Atherosclerotic heart disease of native coronary artery without angina pectoris; F32.9 Major depressive disorder, single episode, unspecified; Z51.5 Encounter for palliative care; Z66 Do not resuscitate; Z79.84 Long term (current) use of oral hypoglycemic drugs; Z79.899 Other long term (current) drug therapy; Z93.3 Colostomy status

== ENCOUNTER → 2017-05-19 | Outpatient (CLI) | payer OTHER ==
[~2017-05-19] MED LIST changes: -ASPI-232 PO; -ERGO1CAP35 PO; -GLIM1TAB2 PO; -HYDR2TAB48 PO; +LEVO50TA6 PO; +LISI-461 PO; -LISI-789 PO; +MCRK20 PO; +METH5TAB2 PO; +MIRT30TA3 PO; -PRAV20TA PO; +PRAV40TA2 PO; -SYN25 PO; +ZLF/100 PO
--- NOTE | 2017-05-19 13:08 | DIAGNOSTIC IMAGING REPORT ---
PET/CT SKULL-THIGH CLINICAL HISTORY: 67 years-old Male with COLORECTAL CANCER. Follow-up study for subsequent treatment strategy. History of prior proctectomy with mid transverse colon diverting colostomy. Suspicious left hepatic lobe lesion seen on comparison CT 04/24/2017 COMPARISON: CT abdomen and pelvis 04/24/2017, chest CT 12/02/2016, PET CT 08/12/2016. TECHNIQUE: The patient was injected with 12.6 mCi of F-18 fluorodeoxyglucose (FDG) and an emission scan was performed from the skull vertex to the toes. Noncontrast CT was performed for attenuation correction and anatomic localization. The blood glucose level was 106 mg/dl. FINDINGS: HEAD AND NECK: There is a physiologic distribution of activity, with no hypermetabolic foci. CHEST: There is a physiologic distribution of activity, with no hypermetabolic mediastinal, hilar or pulmonary foci. Noncalcified pulmonary nodules are noted within the right lung with a 9 mm nodule seen within the medial segment right middle lobe demonstrating no significant FDG uptake. 9 mm noncalcified pulmonary nodule is also seen within the medial basal segment right lower lobe on image 107 of series 2, previously measuring 7 mm on study dated 04/24/2017. This lesion also demonstrates no significant FDG uptake. Scattered groundglass and reticular opacities within the upper lung zones as well as within the bilateral lung bases have increased from comparison chest CT dated 12/02/2016. ABDOMEN AND PELVIS: 3.3 x 2.3 cm low attenuating hypermetabolic lesion within the medial left hepatic lobe on image 114 of series 2 is new from comparison PET CT 08/12/2016 and was seen on comparison CT abdomen and pelvis 04/24/2017 demonstrating markedly hypermetabolic activity with SUV max of 8.7. Mild FDG uptake located within the presacral soft tissues with associated soft tissue thickening is again seen which appears stable from comparison. Likely physiologic uptake seen within bowel within the right lower quadrant. No FDG adenopathy identified. MUSCULOSKELETAL SYSTEM AND EXTREMITIES: Moderately increased FDG uptake is seen about the bilateral shoulders, right greater than left, likely secondary to recent activity or inflammatory changes. No abnormal bony uptake identified to suggest bony metastasis. ADDITIONAL CT FINDINGS: Left subclavian Gftybl-[id number]-Gbgk catheter is noted terminating within the SVC. Heart is mildly enlarged with coronary arterial calcifications. Nodularity of the liver is seen. 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 Moderate atherosclerotic plaquing of the abdominal aorta is noted. No bowel obstruction. Soft tissues are unremarkable. Degenerative changes are seen throughout the spine. IMPRESSION: 1. 3.3 cm low attenuating hypermetabolic lesion within the medial left hepatic lobe is new from prior PET/CT 08/12/2016, very suspicious for hepatic metastasis. 2. Noncalcified pulmonary nodules as above within the right middle and lower lobes measuring up to 9 mm are also new from comparison PET/CT and are also new from chest CT 12/02/2016 without significantly increased radiotracer uptake. These may be below resolution in size for PET and are also suspicious for metastatic disease. The right lower lobe nodule has increased in size from comparison CT abdomen and pelvis 04/24/2017. 3. Increased amount of groundglass and reticular opacities of the bilateral lungs suspicious for pneumonitis. 4. Persistent mild FDG uptake within the presacral suture material with associated soft tissue thickening appears stable from prior PET/CT suggesting post-treatment changes. Attention at follow-up again recommended. 5. 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 The above report was generated using voice recognition software. It may contain grammatical, syntax or spelling errors. Electronically signed by: Cam Dominguez M.D. 05/19/2017 1:06 PM Dictated Date/Time: 05/19/2017 12:44 PM
== END | disposition home or self-care (01) ==
LOC: C.PET 07:46
PROVIDERS: ATTEND Nurse Practitioner Family
DX: C18.9 Malignant neoplasm of colon, unspecified (principal); K76.9 Liver disease, unspecified; R91.8 Other nonspecific abnormal finding of lung field

== ENCOUNTER → 2017-07-31 | Outpatient (CLI) | payer OTHER ==
[~2017-07-31] MED LIST changes: -CARB1TAB38 PO; +CARB400T3 PO
--- NOTE | 2017-07-31 13:53 | DIAGNOSTIC IMAGING REPORT ---
ABD/PELVIS ORAL CONT ONLY CT DOSE: HISTORY: Rectal carcinoma RECTAL CANCER TECHNIQUE: Multiaxial CT images of the abdomen and pelvis were performed following the use of oral contrast. A dose lowering technique was utilized adhering to the principles of ALARA. COMPARISON STUDY: 04/24/2017 FINDINGS: Basilar pulmonary nodularity generally stable the right base compared to the prior exam. Mild cortical scarring outer margin of the liver. This is unchanged. The 3.3 cm nodule of the left hepatic lobe is not well seen on a nonenhanced CT exam. Within these limitations the liver appears uniform. Spleen is unremarkable. Accessory spleens are noted and appear stable. Kidneys negative for hydronephrosis. The postoperative changes involving the bowel appear to be unchanged. Improved subcutaneous postoperative changes of the anterior lateral abdominal arcos. The presacral soft tissue component appears mildly improved. Air bubbles are present within the presacral region most likely relating to interposed bowel loops rather than collection. Mild bladder wall thickening persists. There is no significant abdominal pelvic or inguinal adenopathy. IMPRESSION: Stable to minimally improved evaluation of the abdomen and pelvis compared to the prior study. 2. Postoperative changes involving the anterior and lateral abdominal wall appear to be some improved. 3. Presacral soft tissue is similar now with several air-containing components suggesting interposed bowel rather than abscess 4. The left hepatic lobe lesion see in the patient's prior PET scan is not easily appreciated on this unenhanced scan. 5. Findings of stable hepatic cirrhotic change. 6. Basilar pulmonary nodularity considered generally stable compared to the PET scan. The above report was generated using voice recognition software. It may contain grammatical, syntax or spelling errors. Electronically signed by: Anant Vicente M.D. 07/31/2017 1:52 PM Dictated Date/Time: 07/31/2017 1:42 PM
--- NOTE | 2017-07-31 13:59 | DIAGNOSTIC IMAGING REPORT ---
(CHEST) THORAX WITHOUT CT DOSE: 1879.58 mGy.cm CLINICAL HISTORY: 67 years-old Male with RECTAL CANCER. Follow-up study in a patient with history of rectal carcinoma TECHNIQUE: Multiaxial CT images of the chest were performed without contrast. A dose lowering technique was utilized adhering to the principles of ALARA. COMPARISON: PET CT 05/19/2017, chest CT 12/02/2016. FINDINGS: 2 mm calcification of the mid right thyroid lobe. No definite pathologic adenopathy of the chest identified. Heart is normal in size without pericardial effusion. Corticated linear and coronary arterial calcifications are present. Left subclavian Mpfsen-a-Uhqy catheter is noted with distal tip terminating in the mid SVC. No aortic aneurysm. There is no pneumothorax or pleural effusion. Central airways are patent. Chronic reticular opacities are again seen within a multilobar bibasilar and subpleural predominant distribution compatible with areas of chronic fibrosis. These findings have not significantly changed from comparison studies. 7 mm noncalcified solid nodule of the medial segment right middle lobe appears unchanged from comparison PET, previously measuring 5 mm on study dated 12/02/2016. 8 mm spiculated solid nodule of the medial basal segment right lower lobe with central lucency appears unchanged from comparison PET CT, previously measuring 4 mm on study dated 12/02/2016. No new pulmonary nodules identified. No acute amount of the imaged upper abdomen. Nodularity of the liver is again seen along with ill-defined low attenuating lesion of the left hepatic lobe which measures 1.8 x 1.5 cm demonstrating hypermetabolic activity on comparison PET CT. soft tissues are unremarkable. Multilevel endplate spurring of the spine. No suspicious lytic or blastic bony lesions. IMPRESSION: 1. Irregular solid nodules of the medial basal segment right lower lobe and medial segment right middle lobe are again noted which have not significantly changed from comparison PET CT 05/19/2017 measuring up to 8 mm. Continued follow-up recommended. 2. Unchanged multifocal multilobar reticular opacities of the bilateral lungs suggests areas of fibrosis. 3. Ill-defined low attenuating lesion of the left hepatic lobe again seen which was noted to demonstrate hypermetabolic activity on comparison PET CT. 4. No pathologic adenopathy. Electronically signed by: Cam Dominguez M.D. 07/31/2017 1:57 PM Dictated Date/Time: 07/31/2017 1:40 PM
== END | disposition home or self-care (01) ==
LOC: C.CTS 11:31
PROVIDERS: ATTEND Nurse Practitioner Family
DX: C20 Malignant neoplasm of rectum (principal); Z98.890 Other specified postprocedural states; R93.3 Abnormal findings on diagnostic imaging of other parts of digestive tract; K76.9 Liver disease, unspecified; K74.60 Unspecified cirrhosis of liver; R91.8 Other nonspecific abnormal finding of lung field

== ENCOUNTER 2017-08-12 20:56 | Inpatient (IN) | payer OTHER ==
[~2017-08-12] VITALS: Ht 182.9 cm; Wt 96.4 kg
[2017-08-12] MEDS ORDERED: ONDANSETRON 8 MG/54 ML D5W IV STA (21:21)
[2017-08-12] MEDS ORDERED: SODIUM CHLORIDE 0.9% 1000ML 1,000 ML IV STA (21:21)
[2017-08-12] MEDS ORDERED: MoRPHine SULFATE 2 MG/ML CARP ONE (21:29)
[2017-08-12] MEDS ORDERED: MoRPHine SULFATE 10 MG/ML CARP/VIAL IV PRN (21:30)
[2017-08-12] MEDS ORDERED: MoRPHine SULFATE 4 MG/ML 1 ML CARP\\VIAL ONE (21:30)
--- NOTE | 2017-08-12 21:33 | EMERGENCY ROOM VISIT NOTE ---
History Report prepared by Candace: Gemma Ryder Under the Supervision of: Dr. Brent Horowitz M.D. First contact with patient: 21:14 Chief Complaint: WEAKNESS Stated Complaint: CANCER (DR. CALVO& DR. JEFFRIES) ADMIT History of Present Illness The patient is a 67 year old male who presents to the Emergency Room with complaints of constant weakness beginning 5 days ago. The patient states that he has a history of metastatic colorectal cancer and is on chemotherapy. He reports that he has been feeling increasingly weak and 5 days ago he was scheduled to get chemo but was not able to. He notes that he got fluids and had to come back to the hospital the following day for the same symptoms. The patient states that he has been vomiting and is not able to keep any food or water down. He notes that his last chemo treatment was 2 weeks ago. The patient denies any fever and abdominal pain. He reports that he took Zofran and Methadone without relief of his pain or nausea. Source of History: patient Onset: 5 days ago Position: other (global) Quality: other (weakness) Timing: constant Modifying Factors (Relieving): other (none) Associated Symptoms: + vomiting, No fevers, No abdominal pain Review of Systems See HPI for pertinent positives & negatives. A total of 10 systems reviewed and were otherwise negative. Past Medical & Surgical Medical Problems: (1) Chronic pain (2) Colostomy in place (3) Depression (4) Diabetes (5) Intractable nausea and vomiting Surgical Problems: (1) Colorectal cancer Family History No pertinent family history stated. Social History Smoking Status: Never Smoker Drug Use: none Occupation Status: retired Current/Historical Medications Scheduled Acetaminophen (Tylenol), 1,000 MG PO PRN UD Bacitracin Zinc (Bacitracin Zinc), 1 APPLN TOP DAILY Carbamazepine (Tegretol Xr), 400 MG PO DAILY Folic Acid (Folic Acid), 1 MG PO DAILY Furosemide (Furosemide), 40 MG PO DAILY Levothyroxine Sodium (Levothyroxine Sodium), 50 MCG PO QAM Lisinopril (Lisinopril), 10 MG PO DAILY Metformin HCl (Metformin HCl), 500 MG PO DAILY Methadone Hcl (Dolophine), 10 MG PO TID Mirtazapine (Remeron), 30 MG PO HS Nitroglycerin (Nitroglycerin), 1 TAB SL prn Nystatin (Topical) (Nystatin), 1 APPLN TOP DAILY Pravastatin Sodium (Pravastatin Sodium), 40 MG PO DAILY Sertraline HCl (Sertraline HCl), 100 MG PO DAILY Silver Sulfadiazine (Ssd), 1 APPLN TOP DAILY Scheduled PRN Ondansetron (Ondansetron HCl), 8 MG PO Q6 PRN for Nausea or Vomiting Allergies Coded Allergies: Beta Adrenergic Blockers (Verified Allergy, Intermediate, hives, 04/27/17) Citalopram (Verified Allergy, Intermediate, hives, 04/24/17) Codeine (Verified Allergy, Intermediate, hives, 04/24/17) Iodine (Verified Allergy, Intermediate, hives, 04/24/17) Lisinopril (Verified Allergy, Intermediate, rash, 04/27/17) Metronidazole (Verified Allergy, Intermediate, hives, 04/27/17) Povidone Iodine (Verified Allergy, Intermediate, hives, 04/27/17) Tramadol (Verified Allergy, Intermediate, tightening of throat, 04/27/17) Atorvastatin (Verified Allergy, Mild, cramps and rash, 04/24/17) [place] Blue FCF (Unverified Allergy, Mild, tightening of throat, rash and hives, 04/24/17) Dextromethorphan (Verified Allergy, Mild, tightening of throat, rash and hives, 04/27/17) Propylene Glycol (Unverified Allergy, Mild, tightening of throat, rash and hives, 04/24/17) Sodium Benzoate (Unverified Allergy, Mild, tightening of throat, rash and hives, 04/24/17) Adhesives (Verified Adverse Reaction, Mild, Rash - cloth & paper tape, 04/27) Uncoded Allergies: DIAL SOAP (Allergy, Intermediate, rash, 08/31/15) OPIUM NARCOTICS (Allergy, Intermediate, hives, 08/31/15) Physical Exam Vital Signs Date Time Temp Pulse Resp B/P (MAP) Pulse Ox O2 Delivery O2 Flow Rate FiO2 08/12/17 22:32 70 20 140/63 100 Room Air 08/12/17 21:49 77 08/12/17 21:02 36.4 119 20 121/73 98 Room Air Physical Exam GENERAL: Patient is in no acute distress. HEENT: No acute trauma, normocephalic atraumatic, mucous membranes dry, no nasal congestion, no scleral icterus. NECK: No stridor, no adenopathy, no meningismus, trachea is midline. LUNGS: Clear to auscultation bilaterally, no wheeze, no rhonchi, breath sounds equal. HEART: Without murmurs gallops or rubs, regular rate and rhythm. ABDOMEN: Soft, nontender, bowel sounds positive, no hernias, no peritonitis. Colostomy present with stool in the bag. EXTREMITIES: No cyanosis, full range of motion of all the joints without pain or difficulty, no signs for acute trauma. Mild bilateral pedal edema without cellulitis. NEUROLOGIC: Oriented x 3, no acute motor or sensory deficits, no focal weakness. SKIN: No rash, no jaundice, no diaphoresis. Medical Decision & Procedures ER Provider Diagnostic Interpretation: X-ray results as stated below per interpretation by me and the radiologist: CHEST ONE VIEW PORTABLE FINDINGS: Cardiomediastinal and hilar silhouettes are within normal limits. Left subclavian Inmkbg-j-Cymg catheter is again seen with distal tip in the region of the mid SVC. No pneumothorax, pleural effusion, focal airspace consolidation or overt pulmonary edema. Bones of the chest appear grossly intact. Mild degenerative changes of the shoulders. IMPRESSION: No acute cardiopulmonary process. The above report was generated using voice recognition software. It may contain grammatical, syntax or spelling errors. Electronically signed by: Cam Dominguez M.D. 08/12/2017 10:03 PM Dictated Date/Time: 08/12/2017 10:01 PM Laboratory Results 08/12/17 21:25 Red Blood Count 3.30, Mean Corpuscular Volume 88.8, Mean Corpuscular Hemoglobin 28.8, Mean Corpuscular Hemoglobin Concent 32.4, Mean Platelet Volume 9.2, Neutrophils (%) (Auto) 77.5, Lymphocytes (%) (Auto) 10.7, Monocytes (%) (Auto) 9.1, Eosinophils (%) (Auto) 0.5, Basophils (%) (Auto) 0.1, Neutrophils # (Auto) 6.52, Lymphocytes # (Auto) 0.90, Monocytes # (Auto) 0.77, Eosinophils # (Auto) 0.04, Basophils # (Auto) 0.01 08/12/17 21:25 Test 08/12/17 21:25 White Blood Count 8.42 K/uL (4.8-10.8) Red Blood Count 3.30 M/uL (4.7-6.1) Hemoglobin 9.5 g/dL (14.0-18.0) Hematocrit 29.3 % (42-52) Mean Corpuscular Volume 88.8 fL (80-100) Mean Corpuscular Hemoglobin 28.8 pg (25-34) Mean Corpuscular Hemoglobin Concent 32.4 g/dl (32-36) Platelet Count 114 K/uL (130-400) Mean Platelet Volume 9.2 fL (7.4-10.4) Neutrophils (%) (Auto) 77.5 % Lymphocytes (%) (Auto) 10.7 % Monocytes (%) (Auto) 9.1 % Eosinophils (%) (Auto) 0.5 % Basophils (%) (Auto) 0.1 % Neutrophils # (Auto) 6.52 K/uL (1.4-6.5) Lymphocytes # (Auto) 0.90 K/uL (1.2-3.4) Monocytes # (Auto) 0.77 K/uL (0.11-0.59) Eosinophils # (Auto) 0.04 K/uL (0-0.5) Basophils # (Auto) 0.01 K/uL (0-0.2) RDW Standard Deviation 59.0 fL (36.4-46.3) RDW Coefficient of Variation 19.5 % (11.5-14.5) Immature Granulocyte % (Auto) 2.1 % Immature Granulocyte # (Auto) 0.18 K/uL (0.00-0.02) Nucleated RBC Absolute Count (auto) 0.04 K/uL (0-0) Nucleated Red Blood Cells % 0.5 % Polychromasia 1+ Anisocytosis PRESENT Prothrombin Time 10.8 SECONDS (9.0-12.0) Prothromb Time International Ratio 1.0 (0.9-1.1) Activated Partial Thromboplast Time 29.4 SECONDS (21.0-31.0) Partial Thromboplastin Ratio 1.1 Anion Gap 6.0 mmol/L (3-11) Estimated GFR () 97.5 Estimated GFR (Non- 84.2 BUN/Creatinine Ratio 27.9 (10-20) Calcium Level 8.2 mg/dl (8.5-10.1) Magnesium Level 2.1 mg/dl (1.8-2.4) Total Bilirubin 0.6 mg/dl (0.2-1) Aspartate Amino Transf (AST/SGOT) 14 U/L (15-37) Alanine Aminotransferase (ALT/SGPT) 17 U/L (12-78) Alkaline Phosphatase 109 U/L (45-117) Total Creatine Kinase 42 U/L (39-308) Troponin I < 0.015 ng/ml (0-0.045) Total Protein 6.3 gm/dl (6.4-8.2) Albumin 2.7 gm/dl (3.4-5.0) Globulin 3.6 gm/dl (2.5-4.0) Albumin/Globulin Ratio 0.8 (0.9-2) Thyroid Stimulating Hormone (TSH) 6.490 uIu/ml (0.300-4.500) Free Thyroxine 1.53 ng/dl (0.80-1.60) Laboratory results reviewed by me. Medications Administered Medications (Trade) Dose Ordered Sig/Lorenzo Route Start Time Stop Time Status Last Admin Dose Admin Ondansetron HCl (Zofran 8mg Iv) 8 mg NOW STAT IV 08/12/17 21:21 08/12/17 21:23 DC 08/12/17 21:48 8 MG Sodium Chloride 1,000 ml @ 999 mls/hr Q1H1M STAT IV 08/12/17 21:21 08/12/17 22:21 DC 08/12/17 21:49 999 MLS/HR Morphine Sulfate (MoRPHine SULFATE INJ) 2 mg STK-MED ONCE .ROUTE 08/12/17 21:29 08/12/17 21:31 DC 08/12/17 21:48 2 MG Morphine Sulfate (MoRPHine SULFATE INJ) 4 mg STK-MED ONCE .ROUTE 08/12/17 21:30 08/12/17 21:31 DC 08/12/17 21:48 4 MG ECG Indication: weakness Rate (beats per minute): 95 Rhythm: normal sinus Findings: nonspecific-ST abn (diffuse), no acute ischemic change, no ectopy ED Course 2113: The patient was evaluated in room B8. A complete history and physical exam was performed. 2120: Sodium Chloride 1000 ml @ 999 mls/hr IV, Zofran 8mg IV. 2128: Morphine Sulfate 2mg IV, Morphine Sulfate 4mg IV. 2129: Morphine Sulfate 6mg PRN IV pain. 2216: I reevaluated and updated the patient. 2241: Discussed the patient's case with Dr. Roblero of [facility] [place]. The patient will be evaluated for further management. 2256: Upon reexamination the patient is doing well . I discussed results and treatment plan with the patient. He verbalizes agreement and understanding. I spoke with Dr. Roblero of [facility]. We discussed the patient's results and findings. The patient will be evaluated by him for further management. Medical Decision The patient is a 67 year old male who presents to the ED with complaints of constant weakness. Differential diagnoses considered include dehydration, renal failure, liver failure, anemia, infection, worsening metastatic cancer, failed outpatient treatment, electrolyte imbalance. There is no leukocytosis. The patient is anemic, the number is not critical but looking at previous testing, his hemoglobin has been dropping lately. This value may drop further once he is properly hydrated. There is no significant electrolyte abnormality, kidney failure or hepatitis. Thyroid testing suggests the use of thyroid medication. Chest x-ray does not show pneumonia or CHF. EKG shows a sinus rhythm with some nonspecific change. Cardiac enzyme testing 1 is not consistent with acute cardiac injury. There is no coagulopathy. On exam, the patient appeared quite dehydrated. He has been taking Zofran, last week he received outpatient IV fluids, he appears to be failing outpatient management. The patient received IV saline, was given IV Zofran. He received IV morphine for pain. The patient is quite dehydrated. He has metastatic cancer, he is failing outpatient treatment. He requires IV hydration, he requires pain and nausea control. He is in no condition to be discharged back home. I did speak to the patient and the caser shoe parts. The on-call hospitalist was consulted. Medication Reconcilliation Current Medication List: was personally reviewed by me Blood Pressure Screening Patient's blood pressure: Elevated blood pressure Blood pressure disposition: Elevated BP felt to be situational Consults Time Called: 2229 Consulting Physician: Dr. Roblero Returned Call: [id number] Discussed the patient's case with Dr. Roblero of [facility] [place]. The patient will be evaluated for further management. Impression Primary Impression: Dehydration Additional Impressions: Nausea & vomiting Weakness Failure of outpatient treatment Scribe Attestation The scribe's documentation has been prepared under my direction and personally reviewed by me in its entirety. I confirm that the note above accurately reflects all work, treatment, procedures, and medical decision making performed by me. Departure Information Dispostion Being Evaluated By Hospitalist Referrals Bob Israel M.D. (PCP) Patient Instructions [facility] Problem Qualifiers
[2017-08-12 21:52] LABS: HEMATOCRIT 29.3 % (42-52); HEMOGLOBIN 9.5 g/dL (14.0-18.0); MEAN CELL VOLUME 88.8 fL (80-100); MEAN CORPUSCULAR HEMOGLOBIN 28.8 pg (25-34); MEAN CORPUSCULAR HGB CONC 32.4 g/dl (32-36); MEAN PLATELET VOLUME 9.2 fL (7.4-10.4); NUCLEATED RED BLOOD CELL ABS 0.04 K/uL (0-0); PLATELET COUNT 114 K/uL (130-400); RED CELL DISTRIBUTION WIDTH CV 19.5 % (11.5-14.5); WHITE BLOOD COUNT 8.42 K/uL (4.8-10.8)
[2017-08-12 21:58] LABS: PTT PATIENT 29.4 SECONDS (21.0-31.0)
--- NOTE | 2017-08-12 22:04 | DIAGNOSTIC IMAGING REPORT ---
CHEST ONE VIEW PORTABLE HISTORY: 67 years-old Male EVALUATE ALTERED MENTAL STATUS/WEAKNESS acute altered mental status COMPARISON: Chest radiograph 04/24/2017, PET CT 05/19/2017 TECHNIQUE: Portable upright AP view of the chest FINDINGS: Cardiomediastinal and hilar silhouettes are within normal limits. Left subclavian Kmumfe-q-Mkrb catheter is again seen with distal tip in the region of the mid SVC. No pneumothorax, pleural effusion, focal airspace consolidation or overt pulmonary edema. Bones of the chest appear grossly intact. Mild degenerative changes of the shoulders. IMPRESSION: No acute cardiopulmonary process. The above report was generated using voice recognition software. It may contain grammatical, syntax or spelling errors. Electronically signed by: Cam Dominguez M.D. 08/12/2017 10:03 PM Dictated Date/Time: 08/12/2017 10:01 PM
[2017-08-12 22:06] LABS: ALBUMIN 2.7 gm/dl (3.4-5.0); ALT/SGPT 17 U/L (12-78); BLOOD UREA NITROGEN 26 mg/dl (7-18); CALCIUM 8.2 mg/dl (8.5-10.1); CARBON DIOXIDE 27 mmol/L (21-32); CREATININE 0.94 mg/dl (0.60-1.40); GLUCOSE 152 mg/dl (70-99); POTASSIUM 3.3 mmol/L (3.5-5.1); SODIUM 135 mmol/L (136-145)
[2017-08-12] MEDS ORDERED: ONDA-63 PO (22:07)
[2017-08-12] MEDS ORDERED: METH10TA2 PO (22:07)
[2017-08-12] MEDS ORDERED: FLV1 PO (22:07)
[2017-08-12] MEDS ORDERED: LSX40 PO (22:07)
[2017-08-12] MEDS ORDERED: GLC500 PO (22:07)
[2017-08-12] MEDS ORDERED: [UNRECOGNIZED DRUG - CODE] TOP (22:07)
[2017-08-12] MEDS ORDERED: ACET-1256 PO (22:07)
[2017-08-12] MEDS ORDERED: NYST100033 TOP (22:07)
[2017-08-12] MEDS ORDERED: BACI500O TOP (22:07)
[2017-08-12] MEDS ORDERED: CARB1TAB15 PO (22:07)
[2017-08-12 22:15] LABS: ALKALINE PHOSPHATASE 109 U/L (45-117); AST/SGOT 14 U/L (15-37); TOTAL PROTEIN 6.3 gm/dl (6.4-8.2)
[2017-08-12] MEDS ORDERED: ALUMINUM/MAGNESIUM/SIMETH (MAALOX MAX) 30 ML UDC PO PRN (22:45)
[2017-08-12] MEDS ORDERED: MAGNESIUM HYDROXIDE SUSP 30 ML UDC PO PRN (22:45)
[2017-08-12] MEDS ORDERED: POLYETHYLENE (MIRALAX) 17 GM PACK PO PRN (22:45)
[2017-08-12] MEDS ORDERED: ACETAMINOPHEN 325 MG TAB PO PRN (22:45)
[2017-08-12 22:53] LABS: BASO % 0.1 %; BASO ABS # 0.01 K/uL (0-0.2); EOS % 0.5 %; EOS ABS # 0.04 K/uL (0-0.5); IG# 0.18 K/uL (0.00-0.02); LYMPH % 10.7 %; MONO % 9.1 %; MONO ABS # 0.77 K/uL (0.11-0.59); NEUT % 77.5 %; NEUT ABS # 6.52 K/uL (1.4-6.5)
[2017-08-12] MEDS ORDERED: METOCLOPRAMIDE HCL INJ 5 MG/ML 2 ML VIAL IV PRN (23:00)
[2017-08-12] MEDS ORDERED: GLUCAGON FOR INJ 1 MG VIAL SQ PRN (23:15)
[2017-08-12] MEDS ORDERED: DEXTROSE 50% 50 ML SYR IV PRN (23:15)
[2017-08-12] MEDS ORDERED: GLUCOSE 10 TABS/TUBE PO PRN (23:15)
[2017-08-12] MEDS ORDERED: GLUCOSE 40% GEL 15 GM TUBE PO PRN (23:15)
--- NOTE | 2017-08-12 23:32 | History and Physical ---
History & Physical Date & Time of Service: Aug 12, 2017 at 23:08 Chief Complaint: Cancer (Dr. Vega& Dr. Nichols) Admit Primary Care Physician: Bob Israel M.D. History of Present Illness Source: patient 67 y/o M Hx DM, HPL, liver cirrhosis on recent imaging, metastatic colorectal CA. Pt presents with progressive weakness over the past 5 days in addition to intractable generalized pain and intractable nausea and vomiting. He has not been able to tolerate solids or fluids for a few days. He states that his pain is severe and generalized, involving most of his joints and could not localize any specific area, He denies CP, abdominal pain or fevers. The pt has a colostomy bag and has not had a change in output or stool consistency. Past Medical/Surgical History 1) Metastatic colon CA - mets to liver and lung - currently receiving chemo every 2 weeks 2) DM II 3) HPL 4) Cirrhosis reported on recent imaging 5) Cutaneous fistula 6) The pt's chart mentions CHF and COPD in an H&P in 2016. He states that these were diagnosed when he weighed in excess of 400 pounds and that the diagnoses were later rescinded Surgical Problems: 1) Resection of CA and colostomy placement 2016 Family History Noncontributory to current case Social History Smoking Status: Never Smoker Drug Use: none Housing status: lives with family Occupational Status: retired Immunizations History of Influenza Vaccine: Yes History of Tetanus Vaccine?: Yes History of Pneumococcal: Yes History of Hepatitis B Vaccine: No Multi-Drug Resistant Organisms History of MDRO: No Allergies Coded Allergies: Beta Adrenergic Blockers (Verified Allergy, Intermediate, hives, 04/27/17) Citalopram (Verified Allergy, Intermediate, hives, 04/24/17) Codeine (Verified Allergy, Intermediate, hives, 04/24/17) Iodine (Verified Allergy, Intermediate, hives, 04/24/17) Lisinopril (Verified Allergy, Intermediate, rash, 04/27/17) Metronidazole (Verified Allergy, Intermediate, hives, 04/27/17) Povidone Iodine (Verified Allergy, Intermediate, hives, 04/27/17) Tramadol (Verified Allergy, Intermediate, tightening of throat, 04/27/17) Atorvastatin (Verified Allergy, Mild, cramps and rash, 04/24/17) [place] Blue FCF (Unverified Allergy, Mild, tightening of throat, rash and hives, 04/24/17) Dextromethorphan (Verified Allergy, Mild, tightening of throat, rash and hives, 04/27/17) Propylene Glycol (Unverified Allergy, Mild, tightening of throat, rash and hives, 04/24/17) Sodium Benzoate (Unverified Allergy, Mild, tightening of throat, rash and hives, 04/24/17) Adhesives (Verified Adverse Reaction, Mild, Rash - cloth & paper tape, 04/27) Uncoded Allergies: DIAL SOAP (Allergy, Intermediate, rash, 08/31/15) OPIUM NARCOTICS (Allergy, Intermediate, hives, 08/31/15) Home Medications Scheduled Acetaminophen (Tylenol), 1,000 MG PO PRN UD Bacitracin Zinc (Bacitracin Zinc), 1 APPLN TOP DAILY Carbamazepine (Tegretol Xr), 400 MG PO DAILY Folic Acid (Folic Acid), 1 MG PO DAILY Furosemide (Furosemide), 40 MG PO DAILY Levothyroxine Sodium (Levothyroxine Sodium), 50 MCG PO QAM Lisinopril (Lisinopril), 10 MG PO DAILY Metformin HCl (Metformin HCl), 500 MG PO DAILY Methadone Hcl (Dolophine), 10 MG PO TID Mirtazapine (Remeron), 30 MG PO HS Nitroglycerin (Nitroglycerin), 1 TAB SL prn Nystatin (Topical) (Nystatin), 1 APPLN TOP DAILY Pravastatin Sodium (Pravastatin Sodium), 40 MG PO DAILY Sertraline HCl (Sertraline HCl), 100 MG PO DAILY Silver Sulfadiazine (Ssd), 1 APPLN TOP DAILY Scheduled PRN Ondansetron (Ondansetron HCl), 8 MG PO Q6 PRN for Nausea or Vomiting Review of Systems Constitutional: + weight loss, + weakness, No fever, No chills, No sweats Eyes: No worsening of vision ENT: No hearing loss Respiratory: No cough, No sputum, No wheezing Cardiovascular: No chest pain, No orthopnea, No PND Abdomen: + nausea, + vomiting, No pain Musculoskeletal: + joint pain, + muscle pain (Generalized joint and muscle pain as above) Genitourinary - Male: No hematuria, No dysuria Neurologic: + weakness, No memory loss Psychiatric: + depression symptoms Endocrine: + fatigue Hematologic / Lymphatic: No abnormal bleeding/bruising Integumentary: + rash (there are some red spots which are chronic around his colostomy - he has a nonhealing R great toe wound) Allergic / Immunologic: No environmental allergies Physical Exam Vital Signs Date Time Temp Pulse Resp B/P (MAP) Pulse Ox O2 Delivery O2 Flow Rate FiO2 08/12/17 22:32 70 20 140/63 100 Room Air 08/12/17 21:49 77 08/12/17 21:02 36.4 119 20 121/73 98 Room Air General Appearance: no apparent distress, + pertinent finding (Pale, lethargic , elderly male - ) Head: normocephalic Eyes: normal inspection, EOMI ENT: normal ENT inspection, hearing grossly normal, TMs normal Neck: supple, no JVD Respiratory/Chest: chest non-tender, lungs clear, normal breath sounds Cardiovascular: regular rate, rhythm, no edema, no gallop Abdomen/GI: normal bowel sounds, non tender, soft, + pertinent finding ( colostomy bag full of liquid stool) Back: normal inspection, no CVA tenderness Extremities/Musculoskelatal: normal inspection, no calf tenderness, normal capillary refill 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, no motor/sensory deficits, alert, oriented x 3 Skin: + pallor, + pertinent finding (nonhealing wound on R toe , some redness around colostomy bag - no overt cellulitis) Diagnostics Laboratory Results Results Past 24 Hours Test 08/12/17 21:25 Range/Units White Blood Count 8.42 4.8-10.8 K/uL Red Blood Count 3.30 4.7-6.1 M/uL Hemoglobin 9.5 14.0-18.0 g/dL Hematocrit 29.3 42-52 % Mean Corpuscular Volume 88.8 80-100 fL Mean Corpuscular Hemoglobin 28.8 25-34 pg Mean Corpuscular Hemoglobin Concent 32.4 32-36 g/dl Platelet Count 114 130-400 K/uL Mean Platelet Volume 9.2 7.4-10.4 fL Neutrophils (%) (Auto) 77.5 % Lymphocytes (%) (Auto) 10.7 % Monocytes (%) (Auto) 9.1 % Eosinophils (%) (Auto) 0.5 % Basophils (%) (Auto) 0.1 % Neutrophils # (Auto) 6.52 1.4-6.5 K/uL Lymphocytes # (Auto) 0.90 1.2-3.4 K/uL Monocytes # (Auto) 0.77 0.11-0.59 K/uL Eosinophils # (Auto) 0.04 0-0.5 K/uL Basophils # (Auto) 0.01 0-0.2 K/uL RDW Standard Deviation 59.0 36.4-46.3 fL RDW Coefficient of Variation 19.5 11.5-14.5 % Immature Granulocyte % (Auto) 2.1 % Immature Granulocyte # (Auto) 0.18 0.00-0.02 K/uL Nucleated RBC Absolute Count (auto) 0.04 0-0 K/uL Nucleated Red Blood Cells % 0.5 % Polychromasia 1+ Anisocytosis PRESENT Prothrombin Time 10.8 9.0-12.0 SECONDS Prothromb Time International Ratio 1.0 0.9-1.1 Activated Partial Thromboplast Time 29.4 21.0-31.0 SECONDS Partial Thromboplastin Ratio 1.1 Sodium Level 135 136-145 mmol/L Potassium Level 3.3 3.5-5.1 mmol/L Chloride Level 102 98-107 mmol/L Carbon Dioxide Level 27 21-32 mmol/L Anion Gap 6.0 3-11 mmol/L Blood Urea Nitrogen 26 7-18 mg/dl Creatinine 0.94 0.60-1.40 mg/dl Estimated GFR () 97.5 Estimated GFR (Non- 84.2 BUN/Creatinine Ratio 27.9 10-20 Random Glucose 152 70-99 mg/dl Calcium Level 8.2 8.5-10.1 mg/dl Magnesium Level 2.1 1.8-2.4 mg/dl Total Bilirubin 0.6 0.2-1 mg/dl Aspartate Amino Transf (AST/SGOT) 14 15-37 U/L Alanine Aminotransferase (ALT/SGPT) 17 12-78 U/L Alkaline Phosphatase 109 45-117 U/L Total Creatine Kinase 42 39-308 U/L Troponin I < 0.015 0-0.045 ng/ml Total Protein 6.3 6.4-8.2 gm/dl Albumin 2.7 3.4-5.0 gm/dl Globulin 3.6 2.5-4.0 gm/dl Albumin/Globulin Ratio 0.8 0.9-2 Thyroid Stimulating Hormone (TSH) 6.490 0.300-4.500 uIu/ml Free Thyroxine 1.53 0.80-1.60 ng/dl Impression Assessment and Plan 67 y/o M Hx DM, HPL, liver cirrhosis on recent imaging, metastatic colorectal CA. Pt presents with progressive weakness over the past 5 days in addition to intractable generalized pain and intractable nausea and vomiting. He has not been able to tolerate solids or fluids for a few days. He states that his pain is severe and generalized, involving most of his joints and could not localize any specific area, He denies CP, abdominal pain or fevers. The pt has a colostomy bag and has not had a change in output or stool consistency. 1) Intractable nausea and vomiting - may be related to chemotherapy - placed on clear diet, antiemetics, IVF - diuretic held due to clinical dehydration. Currently his abdomen is soft and there is output in his colostomy bag so an obstruction or partial obstruction is less likely. 2) Intractable pain - will remain on Methadone and placed on PRN Dilaudid. He may need a pain management consultation as his outpt regimen has been ineffective. 3) DM - placed on sliding scale until tolerating PO 4) Met colorectal CA - can f/u with heme/onc as outpt 5) Anemia appears to be worsening - likely due to chemo - no evidence of blood loss at present - trend Hb AM 6) Wound of R toe is being treated topically at present DNR - SCDs pending AM CBC Total time for this admit including review of labs meds, records - discussion with pt and ER attending - 40 min Level of Care Med/Surg Resuscitation Status DO NOT RESUSCITATE VTE Prophylaxis VTE Risk Assessment Done? Y/N: Yes Risk Level: High Given or contraindicated: SCD's
[2017-08-12] MEDS ORDERED: IV FLUIDS COMPLETED PRN (23:45)
--- NOTE | 2017-08-12 23:55 | NUR ---
A/OBS: Arrived to E416 at this time from ED with all belongings. AAO x 4, oriented to room, call hollis use instructed, verbalizes understanding. IVF to be started, A-port accessed. C/O nausea, generalized pain rated "12" out of 10, PRN medications to be given. Ambulates with supervision. Colostomy intact, self-care. See EMR for full assessment.
[2017-08-13] VITALS (7 sets, daily range): BP systolic 92–142; BP diastolic 56–81; PULSE 56–114; TEMP 36.3–36.7; O2SAT 92–100; BMI 28.4
[2017-08-13] MEDS: NSS + 20MEQ KCL 1000ML 1,000 ML IV SCH ×2 (00:38→10:38)
[2017-08-13] MEDS: HYDROmorphone INJ 1 MG/ML SYR IV PRN ×2 (00:39→10:42)
--- NOTE | 2017-08-13 04:00 | NUR ---
OBS: Pt sleeping at this time. IVF infusing through A-port. Remains on room air. Supervision into bathroom, colostomy intact. See EMR for full assessment. Repeat labs scheduled in AM.
[2017-08-13 06:00] LABS: HEMATOCRIT 22.5 % (42-52); HEMOGLOBIN 7.4 g/dL (14.0-18.0); MEAN CELL VOLUME 89.6 fL (80-100); MEAN CORPUSCULAR HEMOGLOBIN 29.5 pg (25-34); MEAN CORPUSCULAR HGB CONC 32.9 g/dl (32-36); NUCLEATED RED BLOOD CELL ABS 0.04 K/uL (0-0); RED CELL DISTRIBUTION WIDTH CV 19.8 % (11.5-14.5)
[2017-08-13 06:32] LABS: CALCIUM 7.6 mg/dl (8.5-10.1); CREATININE 0.67 mg/dl (0.60-1.40); POTASSIUM 3.5 mmol/L (3.5-5.1)
[2017-08-13] MEDS: LEVOTHYROXINE 50 MCG TAB PO SCH (06:32)
[2017-08-13 06:35] LABS: MEAN PLATELET VOLUME 10.1 fL (7.4-10.4); PLATELET COUNT 92 K/uL (130-400)
[2017-08-13] MEDS ORDERED: SILVER SULFADIAZINE 1% CR 50 GM JAR EXT SCH (08:00)
[2017-08-13] MEDS ORDERED: BACITRACIN OINT 15 GM TUBE TOP SCH (08:00)
--- NOTE | 2017-08-13 08:00 | NUR ---
OBS: A&Ox4. VSS. Denied pain at this time. C/O mild nausea, IV zofran given. Tolerating clear liquids this morning. One assist with activity. IVF infusing. Will monitor.
[2017-08-13] MEDS: INSULIN ASPART 100 UNITS/ML 3 ML PEN SC SCH ×4 (08:10→21:37)
[2017-08-13] MEDS: ONDANSETRON INJ 2 MG/ML 2 ML VIAL IV PRN (08:13)
[2017-08-13] MEDS: METHADONE HCL 10 MG TAB PO SCH ×3 (08:16→21:36)
[2017-08-13] MEDS: CARBAMAZEPINE 200 MG TABCR PO SCH (08:16)
[2017-08-13] MEDS: LISINOPRIL 10 MG TAB PO SCH (08:17)
[2017-08-13] MEDS: SERTRALINE HCL 100 MG TAB PO SCH (08:17)
[2017-08-13] MEDS: PRAVASTATIN SOD 40 MG TAB PO SCH (08:17)
[2017-08-13] MEDS: NYSTATIN POWDER 15GM BTL EXT SCH (08:17)
--- NOTE | 2017-08-13 08:40 | Hospitalist Progress Note ---
Hospitalist Progress Note Date of Service Aug 13, 2017. Subjective Pt evaluation today including: conversation w/ patient, physical exam, chart review, lab review, review of studies Pain: Everywhere PO Intake: Poor Voiding: no voiding problems The patient was seen and examined this morning. Pt reports he "hurts all over" and that this has been going on for over a year. He reports his nausea and vomiting is only slightly better at this point, no vomiting today. Bowels moving through colostomy bag are very loose, no signs of blood in stool. He reports feeling extremely tired today. His hgb dropped from 9 to 7 this morning. ROS: 6 point ROS reviewed and otherwise negative. Objective Vital Signs Date Time Temp Pulse Resp B/P (MAP) Pulse Ox O2 Delivery O2 Flow Rate FiO2 08/13/17 07:35 36.4 56 16 113/71 (85) 99 Room Air 08/13/17 04:15 36.3 72 18 109/69 (82) 100 Room Air 08/13/17 02:26 36.7 111 18 136/79 100 Room Air 08/12/17 23:34 74 18 138/63 100 08/12/17 22:32 70 20 140/63 100 Room Air 08/12/17 21:49 77 08/12/17 21:02 36.4 119 20 121/73 98 Room Air Physical Exam General Appearance: + mild distress, + pertinent finding (fatigued, + pallor) Eyes: PERRL, EOMI ENT: hearing grossly normal, pharynx normal, + pertinent finding (MMM) Neck: supple, no JVD Respiratory/Chest: lungs clear, no respiratory distress, no accessory muscle use, + pertinent finding (on RA) Cardiovascular: regular rate, rhythm, no murmur Abdomen: normal bowel sounds, non tender, soft, + pertinent finding (+ colostomy bag intact, outs with loose yellow stool) Extremities: non-tender, no calf tenderness, + pedal edema (mild nonpitting BLE , chronic dry skin ) Neurologic/Psychiatric: alert, oriented x 3, + depressed affect Skin: normal color, + pallor Laboratory Results Last 24 Hours Test 08/12/17 21:21 08/12/17 21:25 08/13/17 05:30 08/13/17 08:08 Urine Color DK YELLOW Urine Appearance TURBID Urine pH >= 9.0 Urine Specific Barrett 1.023 Urine Protein 2+ Urine Glucose (UA) NEG Urine Ketones NEG Urine Occult Blood NEG Urine Nitrite POS Urine Bilirubin NEG Urine Urobilinogen NEG Urine Leukocyte Esterase MODERATE Urine WBC (Auto) >30 /hpf Urine RBC (Auto) 5-10 /hpf Urine Hyaline Casts (Auto) 1-5 /lpf Urine Epithelial Cells (Auto) 10-20 /lpf Urine Bacteria (Auto) 4+ Urine Crystals TRIPLE PHOSPHATE White Blood Count 8.42 K/uL 6.00 K/uL Red Blood Count 3.30 M/uL 2.51 M/uL Hemoglobin 9.5 g/dL 7.4 g/dL Hematocrit 29.3 % 22.5 % Mean Corpuscular Volume 88.8 fL 89.6 fL Mean Corpuscular Hemoglobin 28.8 pg 29.5 pg Mean Corpuscular Hemoglobin Concent 32.4 g/dl 32.9 g/dl Platelet Count 114 K/uL 92 K/uL Mean Platelet Volume 9.2 fL 10.1 fL Neutrophils (%) (Auto) 77.5 % Lymphocytes (%) (Auto) 10.7 % Monocytes (%) (Auto) 9.1 % Eosinophils (%) (Auto) 0.5 % Basophils (%) (Auto) 0.1 % Neutrophils # (Auto) 6.52 K/uL Lymphocytes # (Auto) 0.90 K/uL Monocytes # (Auto) 0.77 K/uL Eosinophils # (Auto) 0.04 K/uL Basophils # (Auto) 0.01 K/uL RDW Standard Deviation 59.0 fL 61.0 fL RDW Coefficient of Variation 19.5 % 19.8 % Immature Granulocyte % (Auto) 2.1 % Immature Granulocyte # (Auto) 0.18 K/uL Nucleated RBC Absolute Count (auto) 0.04 K/uL 0.04 K/uL Nucleated Red Blood Cells % 0.5 % 0.6 % Polychromasia 1+ Anisocytosis PRESENT Prothrombin Time 10.8 SECONDS Prothromb Time International Ratio 1.0 Activated Partial Thromboplast Time 29.4 SECONDS Partial Thromboplastin Ratio 1.1 Sodium Level 135 mmol/L 138 mmol/L Potassium Level 3.3 mmol/L 3.5 mmol/L Chloride Level 102 mmol/L 107 mmol/L Carbon Dioxide Level 27 mmol/L 26 mmol/L Anion Gap 6.0 mmol/L 5.0 mmol/L Blood Urea Nitrogen 26 mg/dl 23 mg/dl Creatinine 0.94 mg/dl 0.67 mg/dl Estimated GFR () 97.5 116.0 Estimated GFR (Non- 84.2 100.1 BUN/Creatinine Ratio 27.9 34.8 Random Glucose 152 mg/dl 119 mg/dl Calcium Level 8.2 mg/dl 7.6 mg/dl Magnesium Level 2.1 mg/dl Total Bilirubin 0.6 mg/dl Aspartate Amino Transf (AST/SGOT) 14 U/L Alanine Aminotransferase (ALT/SGPT) 17 U/L Alkaline Phosphatase 109 U/L Total Creatine Kinase 42 U/L Troponin I < 0.015 ng/ml Total Protein 6.3 gm/dl Albumin 2.7 gm/dl Globulin 3.6 gm/dl Albumin/Globulin Ratio 0.8 Thyroid Stimulating Hormone (TSH) 6.490 uIu/ml Free Thyroxine 1.53 ng/dl Platelet Estimate DECREASED Est Creatinine Clear Calc Drug Dose 129.7 ml/min Bedside Glucose 117 mg/dl Assessment and Plan 67 y/o M Hx DM, HPL, liver cirrhosis on recent imaging, metastatic colorectal CA. Pt presents with progressive weakness over the past 5 days in addition to intractable generalized pain and intractable nausea and vomiting. He has not been able to tolerate solids or fluids for a few days. He states that his pain is severe and generalized, involving most of his joints and could not localize any specific area, He denies CP, abdominal pain or fevers. The pt has a colostomy bag and has not had a change in output or stool consistency. Intractable nausea and vomiting - may be related to chemotherapy - placed on clear diet, antiemetics, IVF - diuretic held due to clinical dehydration. - Currently his abdomen is soft and there is output in his colostomy bag so an obstruction or partial obstruction is less likely. - Continue antiemetics - Will ask heme/onc to see the patient today with decrease hgb from 9.5-->7.4 Intractable pain - will remain on Methadone and placed on PRN Dilaudid. - Will ask pain management to see the patient since outpatient regimen is not adequate DM - placed on sliding scale until tolerating PO Met colorectal CA - can f/u with heme/onc as outpt Anemia - Hgb dropped from 9.5 to 7.4 this morning, will trend labs qam, possible dilutional with dehydration and IVF administration - no apparent GI blood loss - Last round of chemotherapy was about 2 weeks and follows with Dr. Nichols Wound of R toe - being treated topically at present CODE STATUS: DNR Dispostion: From home, CM to assist with dc planning
--- NOTE | 2017-08-13 11:53 | NUR ---
ROSA M received trigger for Oncology Dx, refer to linked note for full assessment and recommendations. Addendum: 08/13/17 at [address] Amended: Links added.
--- NOTE | 2017-08-13 12:00 | NUR ---
ID/OBS: A&Ox4. VSS. C/o pain at times, medicated per orders with some effect. Pain management consulted today. PT/OT and oncology on consult. IVF infusing. Pt from home, d/c plans uncertain at this time.
--- NOTE | 2017-08-13 14:13 | Pain Management Consultation ---
Pain Management Consultation Date of Consultation Aug 13, 2017. Reason for Consultation Assistance with pain management. History Mr. Joseph Malone is a 67-year-old male with a history of colon cancer with metastatic disease to the lungs and liver who was admitted for intractable nausea and vomiting. He has been experiencing generalized body pain as well as multiple joint pain one year duration. Consultation was requested to assist with patient's pain management regimen. Today Mr. Malone reports that his current symptoms started approximately one year ago as he was undergoing chemotherapy for his colorectal cancer. He reports the pain to be rated as "12-12.5/10" and states consistently seen irrelevant of any activity or provocative factors. He describes the pain as a burning sensation in the distal periphery of his extremities and trunk. He also reports experiencing numbness and paresthesias in the hands as well as continuous aching sensation in his lower extremities joints. His symptoms does not change with position, activity, or passive or active range of motion of the joints. He reports inability to ambulate properly due to the pain and loss of proprioception. He reports sleep disturbance and lack of appetite related to his pain. Previous treatments included use of opioids including hydromorphone and methadone. He reported moderate efficacy with oral hydromorphone 2 mg dose prior to be discontinued. He reports persistent symptoms despite being on methadone and despite his dose being increased to 10 mg approximately 3 months ago. Denies any excessive sedation, or side effects to methadone. As an inpatient, his methadone has been continued and IV hydromorphone has been added. He does not recall being on anti-neuropathic medications in the past. Past Medical/Surgical History (1) Depression (2) Diabetes (3) Chronic pain (4) Intractable nausea and vomiting (5) Colostomy in place Social / Work History Smoking Status: Never smoker Drug Use: none Housing Status: lives with family Occupation: retired Allergies Coded Allergies: Beta Adrenergic Blockers (Verified Allergy, Intermediate, hives, 04/27/17) Citalopram (Verified Allergy, Intermediate, hives, 04/24/17) Codeine (Verified Allergy, Intermediate, hives, 04/24/17) Iodine (Verified Allergy, Intermediate, hives, 04/24/17) Lisinopril (Verified Allergy, Intermediate, rash, 04/27/17) Metronidazole (Verified Allergy, Intermediate, hives, 04/27/17) Povidone Iodine (Verified Allergy, Intermediate, hives, 04/27/17) Tramadol (Verified Allergy, Intermediate, tightening of throat, 04/27/17) Atorvastatin (Verified Allergy, Mild, cramps and rash, 04/24/17) [employer] Blue FCF (Unverified Allergy, Mild, tightening of throat, rash and hives, 04/24/17) Dextromethorphan (Verified Allergy, Mild, tightening of throat, rash and hives, 04/27/17) Propylene Glycol (Unverified Allergy, Mild, tightening of throat, rash and hives, 04/24/17) Sodium Benzoate (Unverified Allergy, Mild, tightening of throat, rash and hives, 04/24/17) Adhesives (Verified Adverse Reaction, Mild, Rash - cloth & paper tape, 04/27) Uncoded Allergies: DIAL SOAP (Allergy, Intermediate, rash, 08/31/15) OPIUM NARCOTICS (Allergy, Intermediate, hives, 08/31/15) Medications Current Inpatient Medications Medications (Trade) Dose Ordered Sig/Lorenzo Route Start Time Stop Time Status Last Admin Dose Admin Bacitracin (Bacitracin Oint) 1 appln DAILY TOP 08/13/17 08:00 09/12/17 08:59 08/13/17 06:33 1 APPLN Folic Acid (Folvite Tab) 1 mg DAILY PO 08/13/17 08:00 09/12/17 08:59 08/13/17 08:17 1 MG Levothyroxine Sodium (Synthroid Tab) 50 mcg DAILYBB PO 08/13/17 06:30 09/12/17 06:59 08/13/17 06:32 50 MCG Lisinopril (Zestril Tab) 10 mg DAILY PO 08/13/17 08:00 09/12/17 08:59 08/13/17 08:17 10 MG Methadone HCl (Dolophine Tab) 10 mg TID PO 08/13/17 08:00 08/27/17 08:59 08/13/17 13:29 10 MG Mirtazapine (Remeron Tab) 30 mg HS PO 08/13/17 21:00 09/12/17 20:59 Nystatin (Mycostatin Powder) 1 appln DAILY EXT 08/13/17 08:00 09/12/17 08:59 08/13/17 08:17 1 APPLN Pravastatin Sodium (Pravachol Tab) 40 mg DAILY PO 08/13/17 08:00 09/12/17 08:59 08/13/17 08:17 40 MG Sertraline HCl (Zoloft Tab) 100 mg DAILY PO 08/13/17 08:00 09/12/17 08:59 08/13/17 08:17 100 MG Silver Sulfadiazine (Silvadene 1% Crm 50GM Jar) 1 appln DAILY EXT 08/13/17 08:00 09/12/17 08:59 08/13/17 06:33 1 APPLN Carbamazepine (Tegretol-Xr (Do Not Crush)) 400 mg DAILY PO 08/13/17 08:00 09/12/17 08:59 08/13/17 08:16 400 MG Hydromorphone HCl (Dilaudid Inj) 1 mg Q3H PRN IV 08/12/17 22:45 08/26/17 22:44 08/13/17 10:42 1 MG Potassium Chloride/Sodium Chloride 1,000 ml @ 100 mls/hr Q10H IV 08/13/17 00:30 08/13/17 20:29 08/13/17 10:38 100 MLS/HR Acetaminophen (Tylenol Tab) 650 mg Q4H PRN PO 08/12/17 22:45 09/11/17 22:44 Al Hydrox/Mg Hydrox/Simethicone (Maalox Max Susp) 15 ml Q4H PRN PO 08/12/17 22:45 09/11/17 22:44 Magnesium Hydroxide (Milk Of Magnesia Susp) 30 ml Q6H PRN PO 08/12/17 22:45 09/11/17 22:44 Polyethylene (Miralax Powder Packet) 17 gm DAILY PRN PO 08/12/17 22:45 09/11/17 22:44 Ondansetron HCl (Zofran Inj) 4 mg Q6H PRN IV 08/12/17 22:45 09/11/17 22:44 08/13/17 08:13 4 MG Metoclopramide HCl (Reglan Inj) 10 mg Q8H PRN IV 08/12/17 23:00 09/11/17 22:59 08/13/17 00:39 10 MG Insulin Aspart (novoLOG ASPART) SLIDING SCALE G... ACHS SC 08/13/17 06:30 09/12/17 06:29 Glucose (Glucose 40% Gel) 15-30 GRAMS 15 GRAMS... UD PRN PO 08/12/17 23:15 09/11/17 23:14 Glucose (Glucose Chew Tab) 4-8 Tablets 4 Tabl... UD PRN PO 08/12/17 23:15 09/11/17 23:14 Dextrose (Dextrose 50% 50ML Syringe) 25-50ML OF 50% DW IV FOR... UD PRN IV 08/12/17 23:15 09/11/17 23:14 Glucagon (Glucagon Inj) 1 mg UD PRN SQ 08/12/17 23:15 09/11/17 23:14 Miscellaneous (Iv Fluids Completed) 1 ea PRN PRN N/A 08/12/17 23:45 08/12/18 23:44 Heparin Sodium (Porcine) (Heparin 100 Unit/ml 5ml Flush) 5 ml PRN PRN IV 08/13/17 01:00 09/12/17 00:59 Review of Systems 8 point review of systems has been reportedly negative. Reports nausea and vomiting and in general, failed to thrive recently. Recently diagnosed of hepatic and pulmonary metastatic disease. Physical Exam Height & Weight: Height 6 feet, 0.00 inches. Weight 94.900 (Kilograms) 209 (Pounds) Last Vital Signs Documentation Date Time Temp Pulse Resp B/P (MAP) Pulse Ox O2 Delivery O2 Flow Rate FiO2 08/13/17 11:54 36.5 81 18 111/70 (84) 92 Room Air Exam: Mr. Malone appears much older than stated age of 67. He has generalized muscle wasting. He does not appear to be patent supine position. He falls asleep during the interview process. His short-term and long-term memory is intact. His sensorium is clear when awake. General physical exam demonstrates no focal area of weakness in the upper and lower extremity. Tactile stimulation over the distal upper and lower extremity as well as trunk reproduces dysesthesia and paresthesia along with hyperpathia. Sensory exam also demonstrates decreased sensation of light touch of paresthesias to light touch in the hands. Motor examination demonstrates symmetrical strength in the upper and lower extremities deficits, all of these generalized weakness. Examination major joints of the upper and lower extremities demonstrated full range of motion without limitation. Patient reports increased pain with active and passive range of motion of the major joints. Laboratory Laboratory Results (Last CBC): 08/13/17 05:[address]: reports reviewed CT Findings Abdominal/pelvic CT IMPRESSION: Stable to minimally improved evaluation of the abdomen and pelvis compared to the prior study. 2. Postoperative changes involving the anterior and lateral abdominal wall appear to be some improved. 3. Presacral soft tissue is similar now with several air-containing components suggesting interposed bowel rather than abscess 4. The left hepatic lobe lesion see in the patient's prior PET scan is not easily appreciated on this unenhanced scan. 5. Findings of stable hepatic cirrhotic change. 6. Basilar pulmonary nodularity considered generally stable compared to the PET scan. The above report was generated using voice recognition software. It may contain grammatical, syntax or spelling errors. Electronically signed by: Anant Vicente M.D. 07/31/2017 1:52 PM Dictated Date/Time: 07/31/2017 1:[address] IMPRESSION: 1. Irregular solid nodules of the medial basal segment right lower lobe and medial segment right middle lobe are again noted which have not significantly changed from comparison PET CT 05/19/2017 measuring up to 8 mm. Continued follow-up recommended. 2. Unchanged multifocal multilobar reticular opacities of the bilateral lungs suggests areas of fibrosis. 3. Ill-defined low attenuating lesion of the left hepatic lobe again seen which was noted to demonstrate hypermetabolic activity on comparison PET CT. 4. No pathologic adenopathy. Electronically signed by: Cam Dominguez M.D. 07/31/2017 1:57 PM Dictated Date/Time: 07/31/2017 1:40 PM [place] Drug Monitoring Program Search Results: patient reviewed within database, no issues identified Opioid Risk Assessment Risk assessment performed, minimal risk identified Assessment 1. Colorectal carcinoma with metastatic disease to the liver and lung. 2. Chemotherapy related neuropathic pain. 3. Anxiety/depression. Recommendations 1. Recommend continue patient's baseline, outpatient methadone dose. 2. Recommend adding oral hydromorphone for breakthrough pain. 3. Recommend adding anti-neuropathic agent such as gabapentin or pregabalin and maximize the dose as tolerated. 4. Orders written.
[2017-08-13 16:18] LABS: HEMATOCRIT 23.7 % (42-52); HEMOGLOBIN 7.7 g/dL (14.0-18.0)
--- NOTE | 2017-08-13 16:30 | NUR ---
OBS: Patient resting in bed. A/Ox3. Breath sounds clear diminished on room air. Reports pain 06/03. PRN PO/IV Dilaudid given. NS+20K infusing @100ml/hr through left APORT. +1 assist. Call hollis and bedside table are within reach. Will continue to monitor.
--- NOTE | 2017-08-13 17:00 | Oncology Consultation ---
Oncology/Heme Consultation Date of Consultation: Aug 13, 2017. Attending Physician: Ramiro Thomas MD, PhD Reason for Consultation: Metastatic colorectal cancer Intractable nausea Dehydration Pain History of Present Illness Mr. Malone is a 67 year old man who was diagnosed in 2014 with a T3N0 rectal cancer. He was treated with neoadjuvant chemoradiation with Xeloda, followed by LAR in August 2015. Unfortunately, he had minimal treatment response. His final stage was stage III ([id number]). He had a lengthy surgical recovery due to cardiac arrest intra-operatively and then revisions of his ostomy. He eventually was treated with adjuvant FOLFOX from December through June,. He was admitted to [facility] in March and April, for an abdominal wall cellulitis and C diff colitis. During that stay, CTs revealed findings concerning for hepatic and pulmonary metastases. A PET/CT 05/19 confirmed that the hepatic lesion was FDG avid. It also showed the lung nodules to be progressive in size, though they were below the threshold to be FDG-avid. He started FOLFIRI/Avastin 06/05/17, but his course has been complicated by cytopenias and, more recently, intractable nausea and dehydration. His 5th cycle was due 08/07, but it was delayed due to this issue. He received IV hydration on the and , along with antiemetics and potassium. However, he continued to vomit through the weekend and was admitted yesterday for fatigue , progressive weakness, intractable pain, and an inability to eat. He is feeling somewhat better today, after some IV fluids and antiemetics. His pain is quite severe and is poorly controlled. He has seen Dr. Mccoy from palliative care, who was working to optimize his pain regimen. He denies any headaches, vision changes, or focal weakness. Past Medical/Surgical History Medical Problems: (1) Abdominal wall cellulitis Status: Acute (2) Dehydration Status: Acute (3) Failure of outpatient treatment Status: Acute (4) Nausea & vomiting Status: Acute (5) Weakness Status: Acute Social History Smoking Status: Never Smoker Drug Use: none Occupation Status: retired Allergies Coded Allergies: Beta Adrenergic Blockers (Verified Allergy, Intermediate, hives, 04/27/17) Citalopram (Verified Allergy, Intermediate, hives, 04/24/17) Codeine (Verified Allergy, Intermediate, hives, 04/24/17) Iodine (Verified Allergy, Intermediate, hives, 04/24/17) Lisinopril (Verified Allergy, Intermediate, rash, 04/27/17) Metronidazole (Verified Allergy, Intermediate, hives, 04/27/17) Povidone Iodine (Verified Allergy, Intermediate, hives, 04/27/17) Tramadol (Verified Allergy, Intermediate, tightening of throat, 04/27/17) Atorvastatin (Verified Allergy, Mild, cramps and rash, 04/24/17) [place] [facility] (Unverified Allergy, Mild, tightening of throat, rash and hives, 04/24/17) Dextromethorphan (Verified Allergy, Mild, tightening of throat, rash and hives, 04/27/17) Propylene Glycol (Unverified Allergy, Mild, tightening of throat, rash and hives, 04/24/17) Sodium Benzoate (Unverified Allergy, Mild, tightening of throat, rash and hives, 04/24/17) Adhesives (Verified Adverse Reaction, Mild, Rash - cloth & paper tape, 04/27) Uncoded Allergies: DIAL SOAP (Allergy, Intermediate, rash, 08/31/15) OPIUM NARCOTICS (Allergy, Intermediate, hives, 08/31/15) Home Medications Scheduled Acetaminophen (Tylenol), 1,000 MG PO PRN UD Bacitracin Zinc (Bacitracin Zinc), 1 APPLN TOP DAILY Carbamazepine (Tegretol Xr), 400 MG PO DAILY Folic Acid (Folic Acid), 1 MG PO DAILY Furosemide (Furosemide), 40 MG PO DAILY Levothyroxine Sodium (Levothyroxine Sodium), 50 MCG PO QAM Lisinopril (Lisinopril), 10 MG PO DAILY Metformin HCl (Metformin HCl), 500 MG PO DAILY Methadone Hcl (Dolophine), 10 MG PO TID Mirtazapine (Remeron), 30 MG PO HS Nitroglycerin (Nitroglycerin), 1 TAB SL prn Nystatin (Topical) (Nystatin), 1 APPLN TOP DAILY Pravastatin Sodium (Pravastatin Sodium), 40 MG PO DAILY Sertraline HCl (Sertraline HCl), 100 MG PO DAILY Silver Sulfadiazine (Ssd), 1 APPLN TOP DAILY Scheduled PRN Ondansetron (Ondansetron HCl), 8 MG PO Q6 PRN for Nausea or Vomiting Current Inpatient Medications Current Inpatient Medications Medications (Trade) Dose Ordered Sig/Lorenzo Route Start Time Stop Time Status Last Admin Dose Admin Bacitracin (Bacitracin Oint) 1 appln DAILY TOP 08/13/17 08:00 09/12/17 08:59 08/13/17 06:33 1 APPLN Folic Acid (Folvite Tab) 1 mg DAILY PO 08/13/17 08:00 09/12/17 08:59 08/13/17 08:17 1 MG Levothyroxine Sodium (Synthroid Tab) 50 mcg DAILYBB PO 08/13/17 06:30 09/12/17 06:59 08/13/17 06:32 50 MCG Lisinopril (Zestril Tab) 10 mg DAILY PO 08/13/17 08:00 09/12/17 08:59 08/13/17 08:17 10 MG Methadone HCl (Dolophine Tab) 10 mg TID PO 08/13/17 08:00 08/27/17 08:59 08/13/17 13:29 10 MG Mirtazapine (Remeron Tab) 30 mg HS PO 08/13/17 21:00 09/12/17 20:59 Nystatin (Mycostatin Powder) 1 appln DAILY EXT 08/13/17 08:00 09/12/17 08:59 08/13/17 08:17 1 APPLN Pravastatin Sodium (Pravachol Tab) 40 mg DAILY PO 08/13/17 08:00 09/12/17 08:59 08/13/17 08:17 40 MG Sertraline HCl (Zoloft Tab) 100 mg DAILY PO 08/13/17 08:00 09/12/17 08:59 08/13/17 08:17 100 MG Silver Sulfadiazine (Silvadene 1% Crm 50GM Jar) 1 appln DAILY EXT 08/13/17 08:00 09/12/17 08:59 08/13/17 06:33 1 APPLN Carbamazepine (Tegretol-Xr (Do Not Crush)) 400 mg DAILY PO 08/13/17 08:00 09/12/17 08:59 08/13/17 08:16 400 MG Hydromorphone HCl (Dilaudid Inj) 1 mg Q3H PRN IV 08/12/17 22:45 08/26/17 22:44 08/13/17 10:42 1 MG Potassium Chloride/Sodium Chloride 1,000 ml @ 100 mls/hr Q10H IV 08/13/17 00:30 08/13/17 20:29 08/13/17 10:38 100 MLS/HR Acetaminophen (Tylenol Tab) 650 mg Q4H PRN PO 08/12/17 22:45 09/11/17 22:44 Al Hydrox/Mg Hydrox/Simethicone (Maalox Max Susp) 15 ml Q4H PRN PO 08/12/17 22:45 09/11/17 22:44 Magnesium Hydroxide (Milk Of Magnesia Susp) 30 ml Q6H PRN PO 08/12/17 22:45 09/11/17 22:44 Polyethylene (Miralax Powder Packet) 17 gm DAILY PRN PO 08/12/17 22:45 09/11/17 22:44 Ondansetron HCl (Zofran Inj) 4 mg Q6H PRN IV 08/12/17 22:45 09/11/17 22:44 08/13/17 08:13 4 MG Metoclopramide HCl (Reglan Inj) 10 mg Q8H PRN IV 08/12/17 23:00 09/11/17 22:59 08/13/17 00:39 10 MG Insulin Aspart (novoLOG ASPART) SLIDING SCALE G... ACHS SC 08/13/17 06:30 09/12/17 06:29 Glucose (Glucose 40% Gel) 15-30 GRAMS 15 GRAMS... UD PRN PO 08/12/17 23:15 09/11/17 23:14 Glucose (Glucose Chew Tab) 4-8 Tablets 4 Tabl... UD PRN PO 08/12/17 23:15 09/11/17 23:14 Dextrose (Dextrose 50% 50ML Syringe) 25-50ML OF 50% DW IV FOR... UD PRN IV 08/12/17 23:15 09/11/17 23:14 Glucagon (Glucagon Inj) 1 mg UD PRN SQ 08/12/17 23:15 09/11/17 23:14 Miscellaneous (Iv Fluids Completed) 1 ea PRN PRN N/A 08/12/17 23:45 08/12/18 23:44 Heparin Sodium (Porcine) (Heparin 100 Unit/ml 5ml Flush) 5 ml PRN PRN IV 08/13/17 01:00 09/12/17 00:59 Hydromorphone HCl (Dilaudid Tab) 2 mg Q3HWA PRN PO 08/13/17 14:15 08/27/17 14:14 Gabapentin (Neurontin Cap) 300 mg TID PO 08/13/17 20:00 09/12/17 19:59 Review of Systems Constitutional: + weight loss, + weakness (generalized), + fatigue Eyes: No worsening of vision Respiratory: No cough, No shortness of breath Cardiovascular: No chest pain Abdomen: + pain, + nausea, + vomiting Neurologic: No weakness, No numbness/tingling Hematologic / Lymphatic: No abnormal bleeding/bruising Physical Exam Date Time Temp Pulse Resp B/P (MAP) Pulse Ox O2 Delivery O2 Flow Rate FiO2 08/13/17 15:31 36.4 84 18 102/62 (75) 96 Room Air 08/13/17 11:54 36.5 81 18 111/70 (84) 92 Room Air 08/13/17 09:00 Room Air 08/13/17 07:35 36.4 56 16 113/71 (85) 99 Room Air 08/13/17 04:15 36.3 72 18 109/69 (82) 100 Room Air 08/13/17 02:26 36.7 111 18 136/79 100 Room Air 08/12/17 23:34 74 18 138/63 100 08/12/17 22:32 70 20 140/63 100 Room Air 08/12/17 21:49 77 08/12/17 21:02 36.4 119 20 121/73 98 Room Air General Appearance: + mild distress (due to pain), + pertinent finding (ill- appearing and weak) ENT: pharynx normal (mucous membranes moist) Respiratory/Chest: lungs clear Cardiovascular: regular rate, rhythm Abdomen/GI: non tender, soft Extremities/Musculoskelatal: no pedal edema Neurologic/Psych: alert, oriented x 3 Laboratory Results Last 24 Hours Test 08/12/17 21:21 08/12/17 21:25 08/13/17 05:30 08/13/17 08:08 Urine Color DK YELLOW Urine Appearance TURBID Urine pH >= 9.0 Urine Specific [place] 1.023 Urine Protein 2+ Urine Glucose (UA) NEG Urine Ketones NEG Urine Occult Blood NEG Urine Nitrite POS Urine Bilirubin NEG Urine Urobilinogen NEG Urine Leukocyte Esterase MODERATE Urine WBC (Auto) >30 /hpf Urine RBC (Auto) 5-10 /hpf Urine Hyaline Casts (Auto) 1-5 /lpf Urine Epithelial Cells (Auto) 10-20 /lpf Urine Bacteria (Auto) 4+ Urine Crystals TRIPLE PHOSPHATE White Blood Count 8.42 K/uL 6.00 K/uL Red Blood Count 3.30 M/uL 2.51 M/uL Hemoglobin 9.5 g/dL 7.4 g/dL Hematocrit 29.3 % 22.5 % Mean Corpuscular Volume 88.8 fL 89.6 fL Mean Corpuscular Hemoglobin 28.8 pg 29.5 pg Mean Corpuscular Hemoglobin Concent 32.4 g/dl 32.9 g/dl Platelet Count 114 K/uL 92 K/uL Mean Platelet Volume 9.2 fL 10.1 fL Neutrophils (%) (Auto) 77.5 % Lymphocytes (%) (Auto) 10.7 % Monocytes (%) (Auto) 9.1 % Eosinophils (%) (Auto) 0.5 % Basophils (%) (Auto) 0.1 % Neutrophils # (Auto) 6.52 K/uL Lymphocytes # (Auto) 0.90 K/uL Monocytes # (Auto) 0.77 K/uL Eosinophils # (Auto) 0.04 K/uL Basophils # (Auto) 0.01 K/uL RDW Standard Deviation 59.0 fL 61.0 fL RDW Coefficient of Variation 19.5 % 19.8 % Immature Granulocyte % (Auto) 2.1 % Immature Granulocyte # (Auto) 0.18 K/uL Nucleated RBC Absolute Count (auto) 0.04 K/uL 0.04 K/uL Nucleated Red Blood Cells % 0.5 % 0.6 % Polychromasia 1+ Anisocytosis PRESENT Prothrombin Time 10.8 SECONDS Prothromb Time International Ratio 1.0 Activated Partial Thromboplast Time 29.4 SECONDS Partial Thromboplastin Ratio 1.1 Sodium Level 135 mmol/L 138 mmol/L Potassium Level 3.3 mmol/L 3.5 mmol/L Chloride Level 102 mmol/L 107 mmol/L Carbon Dioxide Level 27 mmol/L 26 mmol/L Anion Gap 6.0 mmol/L 5.0 mmol/L Blood Urea Nitrogen 26 mg/dl 23 mg/dl Creatinine 0.94 mg/dl 0.67 mg/dl Estimated GFR () 97.5 116.0 Estimated GFR (Non- 84.2 100.1 BUN/Creatinine Ratio 27.9 34.8 Random Glucose 152 mg/dl 119 mg/dl Calcium Level 8.2 mg/dl 7.6 mg/dl Magnesium Level 2.1 mg/dl Total Bilirubin 0.6 mg/dl Aspartate Amino Transf (AST/SGOT) 14 U/L Alanine Aminotransferase (ALT/SGPT) 17 U/L Alkaline Phosphatase 109 U/L Total Creatine Kinase 42 U/L Troponin I < 0.015 ng/ml Total Protein 6.3 gm/dl Albumin 2.7 gm/dl Globulin 3.6 gm/dl Albumin/Globulin Ratio 0.8 Thyroid Stimulating Hormone (TSH) 6.490 uIu/ml Free Thyroxine 1.53 ng/dl Platelet Estimate DECREASED Est Creatinine Clear Calc Drug Dose 129.7 ml/min Bedside Glucose 117 mg/dl Test 08/13/17 12:18 08/13/17 16:11 Bedside Glucose 131 mg/dl Hemoglobin 7.7 g/dL Hematocrit 23.7 % Assessment & Plan Mr. Malone is struggling with nausea and dehydration. This may be due to chemo toxicity, to his uncontrolled pain, to progressive disease, or to some combination of these factors. I would obtain a CT of his abdomen and pelvis, to rule out progression as a source of his symptoms. I would also continue with supportive care, like IV antiemetics and fluids, for now. I would consult Dr. Mccoy, his depilatory painter, to help optimize his narcotics. He may also benefit from a nutrition consultation, as he is eating minimally and his albumin is starting to fall. If we cannot find a way to safely administer chemotherapy, we may need to consider de-escalation of his therapy or even hospice.
[2017-08-13] MEDS: HYDROmorphone HCL 2 MG TAB PO PRN ×2 (17:04→21:36)
--- NOTE | 2017-08-13 20:30 | NUR ---
OBS: Patient resting in bed. A/Ox3. Breath sounds clear diminished on room air. Reports pain 10/10. PRN PO Dilaudid given. Left APORT heplocked. +2 assist with a walker to the bathroom. Call hollis and bedside table are within reach. Will continue to monitor.
[2017-08-13] MEDS: GABAPENTIN 300 MG CAP PO SCH (21:36)
[2017-08-13] MEDS: MIRTAZAPINE TAB 15 MG TAB PO SCH (21:37)
[2017-08-14] VITALS (9 sets, daily range): BP systolic 104–150; BP diastolic 67–74; PULSE 61–101; TEMP 36.4–37.4; O2SAT 97–100; Ht 182.9 cm; Wt 96.4 kg
--- NOTE | 2017-08-14 | NUR ---
OBS: Resting comfortably at this time, denies any nausea/pain at this time. AAO x 3, drowsy. A-port HL. Sats 87-89% on room, 2L nasal cannula placed - sats improved to 92%. Remains on clear liquid diet. Dressing intact to right great toe. Ostomy patent. See EMR for full assessment.
--- NOTE | 2017-08-14 04:00 | NUR ---
OBS: Pt sleeping at this time. A-port HL. Colostomy intact. Remains on 2L nasal cannula with sats 92-93%. See EMR for full assessment. Repeat labs scheduled for AM.
[2017-08-14] MEDS: LEVOTHYROXINE 50 MCG TAB PO SCH (05:39)
[2017-08-14 05:53] LABS: HEMOGLOBIN 8.2 g/dL (14.0-18.0); MEAN CELL VOLUME 91.9 fL (80-100); MEAN CORPUSCULAR HGB CONC 31.5 g/dl (32-36); NUCLEATED RED BLOOD CELL ABS 0.04 K/uL (0-0); PLATELET COUNT 103 K/uL (130-400); RED CELL DISTRIBUTION WIDTH CV 20.6 % (11.5-14.5); RED CELL DISTRIBUTION WIDTH SD 67.7 fL (36.4-46.3)
[2017-08-14 06:26] LABS: CALCIUM 7.8 mg/dl (8.5-10.1); CREATININE 0.75 mg/dl (0.60-1.40); POTASSIUM 3.6 mmol/L (3.5-5.1)
[2017-08-14] MEDS: INSULIN ASPART 100 UNITS/ML 3 ML PEN SC SCH ×4 (06:30→20:23)
[2017-08-14 06:41] LABS: BASO % 0.1 %; BASO ABS # 0.01 K/uL (0-0.2); EOS % 0.6 %; EOS ABS # 0.07 K/uL (0-0.5); IG# 0.08 K/uL (0.00-0.02); LYMPH % 9.5 %; LYMPH ABS # 1.05 K/uL (1.2-3.4); MONO % 9.2 %; MONO ABS # 1.02 K/uL (0.11-0.59); NEUT % 79.9 %; NEUT ABS # 8.87 K/uL (1.4-6.5)
[2017-08-14] MEDS: NYSTATIN POWDER 15GM BTL EXT SCH (08:00)
[2017-08-14] MEDS: PRAVASTATIN SOD 40 MG TAB PO SCH (08:00)
[2017-08-14] MEDS: METHADONE HCL 10 MG TAB PO SCH ×2 (08:00→20:53)
[2017-08-14] MEDS: LISINOPRIL 10 MG TAB PO SCH (08:00)
[2017-08-14] MEDS: CARBAMAZEPINE 200 MG TABCR PO SCH (08:00)
[2017-08-14] MEDS: SERTRALINE HCL 100 MG TAB PO SCH (08:00)
[2017-08-14] MEDS: GABAPENTIN 300 MG CAP PO SCH ×3 (08:00→20:22)
[2017-08-14] MEDS ORDERED: NALOXONE HCL 0.4 MG/1 ML VIAL/CARP ONE (09:10)
--- NOTE | 2017-08-14 09:16 | Pain Management Progress Note ---
Pain Management Progress Note Date of Service Aug 14, 2017. Subjective Mr. Joseph Malone is a 67-year-old male with a history of colon cancer with metastatic disease to the lungs and liver who was admitted for intractable nausea and vomiting. He has been experiencing generalized body pain as well as multiple joint pain one year duration. He received a single dose of hydromorphone last evening at 9:30 PM and appeared to sleep well last evening. He appears comfortable on on today's examination. He did not participate in examination due to sedation this morning. Objective Vital Signs: Last Vital Signs Documentation Date Time Temp Pulse Resp B/P (MAP) Pulse Ox O2 Delivery O2 Flow Rate FiO2 08/14/17 08:29 115/74 (88) 08/14/17 08:18 95 7 99 08/14/17 07:07 37.4 Nasal Cannula 2.0 Physical Exam: The patient was examined in the presence of nursing staff. He is minimally arousable on exam however with sternal rub he was able to open his eyes and state his name and that he was in the hospital. Shortly after stopping the painful stimulus, he immediately fell back to sleep and appeared comfortable. Vital signs remained stable on the monitor that he is on. Laboratory Laboratory Findings 08/14/17 05:44 Red Blood Count 2.83 L, Mean Corpuscular Volume 91.9, Mean Corpuscular Hemoglobin 29.0, Mean Corpuscular Hemoglobin Concent 31.5 L, Mean Platelet Volume 10.0, Neutrophils (%) (Auto) 79.9, Lymphocytes (%) (Auto) 9.5, Monocytes (%) (Auto) 9.2, Eosinophils (%) (Auto) 0.6, Basophils (%) (Auto) 0.1, Neutrophils # (Auto) 8.87 H, Lymphocytes # (Auto) 1.05 L, Monocytes # (Auto) 1.02 H, Eosinophils # (Auto) 0.07, Basophils # (Auto) 0.01 Assessment 1. Colorectal carcinoma with metastatic disease to the liver and lung. 2. Chemotherapy related neuropathic pain. 3. Anxiety/depression. Recommendations 1. The patient appears comfortable on examination and palliative care is currently consulted on this case. 2. I am happy to provide input, however, I feel that this patient would benefit from the coordination of palliative care and possibly comfort care in the near future. Subsequently, I will sign off but welcome any questions that should arise.
--- NOTE | 2017-08-14 09:18 | Hospitalist Progress Note ---
Hospitalist Progress Note Date of Service Aug 14, 2017. Objective Vital Signs Date Time Temp Pulse Resp B/P (MAP) Pulse Ox O2 Delivery O2 Flow Rate FiO2 08/14/17 08:29 115/74 (88) 08/14/17 08:18 95 7 150/74 (99) 99 08/14/17 07:07 37.4 101 16 115/71 (86) 97 Nasal Cannula 2.0 08/14/17 04:21 37.4 87 18 108/67 (81) 99 Nasal Cannula 2.0 08/14/17 00:10 Room Air 08/13/17 23:28 36.6 114 20 142/81 (101) 92 Nasal Cannula 2.0 08/13/17 19:24 36.3 85 16 92/56 (68) 93 Room Air 08/13/17 16:00 Room Air 08/13/17 15:31 36.4 84 18 102/62 (75) 96 Room Air 08/13/17 11:54 36.5 81 18 111/70 (84) 92 Room Air Laboratory Results Last 24 Hours Test 08/13/17 12:18 08/13/17 16:11 08/13/17 16:29 08/13/17 20:04 Bedside Glucose 131 mg/dl 157 mg/dl 152 mg/dl Hemoglobin 7.7 g/dL Hematocrit 23.7 % Test 08/14/17 05:44 08/14/17 07:27 White Blood Count 11.10 K/uL Red Blood Count 2.83 M/uL Hemoglobin 8.2 g/dL Hematocrit 26.0 % Mean Corpuscular Volume 91.9 fL Mean Corpuscular Hemoglobin 29.0 pg Mean Corpuscular Hemoglobin Concent 31.5 g/dl Platelet Count 103 K/uL Mean Platelet Volume 10.0 fL Neutrophils (%) (Auto) 79.9 % Lymphocytes (%) (Auto) 9.5 % Monocytes (%) (Auto) 9.2 % Eosinophils (%) (Auto) 0.6 % Basophils (%) (Auto) 0.1 % Neutrophils # (Auto) 8.87 K/uL Lymphocytes # (Auto) 1.05 K/uL Monocytes # (Auto) 1.02 K/uL Eosinophils # (Auto) 0.07 K/uL Basophils # (Auto) 0.01 K/uL RDW Standard Deviation 67.7 fL RDW Coefficient of Variation 20.6 % Immature Granulocyte % (Auto) 0.7 % Immature Granulocyte # (Auto) 0.08 K/uL Nucleated RBC Absolute Count (auto) 0.04 K/uL Nucleated Red Blood Cells % 0.4 % Toxic Granulation 2+ Basophilic Stippling OCCASIONAL Anisocytosis PRESENT Tear Drop Cells OCCASIONAL Ovalocytes 1+ Sodium Level 137 mmol/L Potassium Level 3.6 mmol/L Chloride Level 106 mmol/L Carbon Dioxide Level 27 mmol/L Anion Gap 4.0 mmol/L Blood Urea Nitrogen 18 mg/dl Creatinine 0.75 mg/dl Est Creatinine Clear Calc Drug Dose 115.8 ml/min Estimated GFR () 110.8 Estimated GFR (Non- 95.6 BUN/Creatinine Ratio 23.9 Random Glucose 123 mg/dl Calcium Level 7.8 mg/dl Magnesium Level 2.0 mg/dl Bedside Glucose 133 mg/dl Assessment and Plan 67 y/o M Hx DM, HPL, liver cirrhosis on recent imaging, metastatic colorectal CA. Pt presents with progressive weakness over the past 5 days in addition to intractable generalized pain and intractable nausea and vomiting. He has not been able to tolerate solids or fluids for a few days. He states that his pain is severe and generalized, involving most of his joints and could not localize any specific area, He denies CP, abdominal pain or fevers. The pt has a colostomy bag and has not had a change in output or stool consistency. Intractable nausea and vomiting - may be related to chemotherapy - placed on clear diet, antiemetics, IVF - diuretic held due to clinical dehydration. - Currently his abdomen is soft and there is output in his colostomy bag so an obstruction or partial obstruction is less likely. - Continue antiemetics - Oncology consulted- appreciate recs - will order CT abd this am, also palliative med consulted. Will also consult nutrition as pt albumin is decreasing and pt may be unable to tolerate chemotherapy at this time if continued poor oral intake. Intractable pain - will remain on Methadone and placed on PRN Dilaudid. - Pain management consulted: appreciate recs - Added hydrocodone 2 mg PO Q3HWA and gabapentin 300 mg TID DM - placed on sliding scale until tolerating PO Met colorectal CA - Heme/onc consulted and appreciate recs Anemia - Hgb dropped from 9.5 to 7.4 but seems to be trending back up into 8s today. - Continue trend labs qam, possible dilutional with dehydration and IVF administration - no apparent GI blood loss - Last round of chemotherapy was about 2 weeks and follows with Dr. Nichols Wound of R toe - being treated topically at present CODE STATUS: DNR Dispostion: From home, CM to assist with dc planning
[2017-08-14] MEDS ORDERED: OPTIRAY 320 IV PRN (09:30)
[2017-08-14] MEDS ORDERED: DiphenhydrAMINE INJ 50 MG in SYRINGE 0 ML IV SCH (09:30)
[2017-08-14] MEDS ORDERED: HYDROmorphone HCL 2 MG TAB PO PRN (09:30)
[2017-08-14] MEDS ORDERED: NURSING VERBAL MED ORDER ONE ×3 (10:00→16:45)
[2017-08-14] MEDS ORDERED: DiphenhydrAMINE HCL 50 MG/ML VIAL IV SCH (10:15)
--- NOTE | 2017-08-14 10:30 | Progress Note ---
Subjective Date of Service: Aug 14, 2017. Subjective Pt evaluation today including: conversation w/ patient, conversation w/ family , physical exam, chart review, lab review, review of studies, conversation w/ telecommunications consultant, review of inpatient medication list Call to see patient stat because not wake up, respiratory rate decreased at 7 In deep sleep, no fever and chills, Problem List Medical Problems: (1) Abdominal wall cellulitis Status: Acute (2) Dehydration Status: Acute (3) Failure of outpatient treatment Status: Acute (4) Nausea & vomiting Status: Acute (5) Weakness Status: Acute Review of Systems Constitutional: + problem reported (Limited because of not awakable) Objective Vital Signs Date Time Temp Pulse Resp B/P (MAP) Pulse Ox O2 Delivery O2 Flow Rate FiO2 08/14/17 08:29 115/74 (88) 08/14/17 08:18 95 7 150/74 (99) 99 08/14/17 07:07 37.4 101 16 115/71 (86) 97 Nasal Cannula 2.0 08/14/17 04:21 37.4 87 18 108/67 (81) 99 Nasal Cannula 2.0 08/14/17 00:10 Room Air 08/13/17 23:28 36.6 114 20 142/81 (101) 92 Nasal Cannula 2.0 08/13/17 19:24 36.3 85 16 92/56 (68) 93 Room Air 08/13/17 16:00 Room Air 08/13/17 15:31 36.4 84 18 102/62 (75) 96 Room Air 08/13/17 11:54 36.5 81 18 111/70 (84) 92 Room Air Physical Exam General Appearance: + pertinent finding (frail, chronically ill-looking, mild pale,) Eyes: + pertinent finding (bilateral pupil 1-2 mm) ENT: normal ENT inspection Neck: supple, no adenopathy Respiratory/Chest: lungs clear, + decreased breath sounds, + pertinent finding (RR is at 5-7 ) Cardiovascular: regular rate, rhythm, no edema Abdomen: normal bowel sounds, soft Extremities: normal range of motion Neurologic/Psychiatric: + pertinent finding (per RN, pt was able to wake up and know his own name after rubbing chest ) Skin: + pertinent finding (right total wounds in dress, no local exudates or ozzing, no local tenderness) Laboratory Results Last 24 Hours Test 08/13/17 12:18 08/13/17 16:11 08/13/17 16:29 08/13/17 20:04 Bedside Glucose 131 mg/dl 157 mg/dl 152 mg/dl Hemoglobin 7.7 g/dL Hematocrit 23.7 % Test 08/14/17 05:44 08/14/17 07:27 White Blood Count 11.10 K/uL Red Blood Count 2.83 M/uL Hemoglobin 8.2 g/dL Hematocrit 26.0 % Mean Corpuscular Volume 91.9 fL Mean Corpuscular Hemoglobin 29.0 pg Mean Corpuscular Hemoglobin Concent 31.5 g/dl Platelet Count 103 K/uL Mean Platelet Volume 10.0 fL Neutrophils (%) (Auto) 79.9 % Lymphocytes (%) (Auto) 9.5 % Monocytes (%) (Auto) 9.2 % Eosinophils (%) (Auto) 0.6 % Basophils (%) (Auto) 0.1 % Neutrophils # (Auto) 8.87 K/uL Lymphocytes # (Auto) 1.05 K/uL Monocytes # (Auto) 1.02 K/uL Eosinophils # (Auto) 0.07 K/uL Basophils # (Auto) 0.01 K/uL RDW Standard Deviation 67.7 fL RDW Coefficient of Variation 20.6 % Immature Granulocyte % (Auto) 0.7 % Immature Granulocyte # (Auto) 0.08 K/uL Nucleated RBC Absolute Count (auto) 0.04 K/uL Nucleated Red Blood Cells % 0.4 % Toxic Granulation 2+ Basophilic Stippling OCCASIONAL Anisocytosis PRESENT Tear Drop Cells OCCASIONAL Ovalocytes 1+ Sodium Level 137 mmol/L Potassium Level 3.6 mmol/L Chloride Level 106 mmol/L Carbon Dioxide Level 27 mmol/L Anion Gap 4.0 mmol/L Blood Urea Nitrogen 18 mg/dl Creatinine 0.75 mg/dl Est Creatinine Clear Calc Drug Dose 115.8 ml/min Estimated GFR () 110.8 Estimated GFR (Non- 95.6 BUN/Creatinine Ratio 23.9 Random Glucose 123 mg/dl Calcium Level 7.8 mg/dl Magnesium Level 2.0 mg/dl Bedside Glucose 133 mg/dl Assessment and Plan 67 y/o M with metastatic colorectal CA with progressive weakness over the past 5 days in addition to intractable generalized pain and intractable nausea and vomiting s/p chemo therapy 2 weeks ago. Acute respiratory distress possible from narcotic overdose Patient is getting Dilaudid IV last night, and currently is on methadone, palliative care, pain management, oncologist, and I called to patient's daughter over the phone , we discussed, gave 1 dose of Narco, and watch, urine drug screening was ordered Intractable nausea and vomiting, chemotherapy or cancer related: Currently stable, supportive care, tx symptoms Hx DM, HPL, liver cirrhosis on recent imaging cont current and sliding scale until tolerating PO Met colorectal CA to liver and lungs, Last round of chemotherapy was about 2 weeks and follows with Dr. Nichols, per family, patient's general conditions has been not good prior to this admission, renal planning to do treatment such as chemotherapy if his condition not improving, palliative care consulted possible acute blood lost anemia, or dilutional, with Hgb dropped from 9.5 to 7.4 yesterday morning, repeated hemoglobin was improved, intractable pain related to cancer and neuropathy, pain magt input appreciated, will adjust pain meds Wound of R toe, local wound care DNR I called to patient's daughter who is POA, about patient's current conditions and care plan, answer all questions, next step of plan will discussed with oncologist and palliative care Continued [facility] stay due to: home environment unsafe for pt Discharge planning: uncertain
--- NOTE | 2017-08-14 10:35 | Palliative Care Consultation ---
Consultation Date of Consultation: Aug 14, 2017. Requesting Physician: Dr Thomas Attending Physician: Dr Thomas Reason for Consultation: Management of opioids - pt with decreased alertness and low RR History of Present Illness Pt is seen in the Palliative outpt clinic for cancer related abdominal pain. Pt has been on methadone 10 mg TID since Apr - he has not received any other opioid prescription. Pt queried in PDMP - [place] other scripts filled in [place] except his methadone on a monthly basis. Pt last script was filled on 07/14 for a 1 month supply. Pt is a 67 yo male with a PMH of Colorectal cancer s/p resection and ostomy in Aug 2015. Pt was admitted to [facility] on 04/24 for abd wall abscess/ cellulitis. Pt has been receiving chemo - his last chemo was 3 weeks ago, he was due to have another chemo on 08/07, but was not able to due to weakness. Pt with liver and lung nodules - last CT scans on 07/31 showed no significant changes. Called to bedside urgently for RR of 7, decreased responsiveness and pinpoint pupils - pt given Narcan with improvement in his RR to 16 and pt responding to voice. Requested urine drug screen to r/o any other meds on board that are not prescribed. Will need to discuss whether or not pt should continue chemo when he is more alert and his son is present. Pt received 1 mg IV Diluadid ( equiv to 20 mg oral morphine) X 2 yesterday at 0039 and again at 1042. IV Dilaudid was d/c'd yesterday and he was given PO Dilaudid at 2 mg ( equivalent of 8 mg oral morphine) at 1740 and 2136 yesterday - none this am. Will need to assess renal and hepatic function as Dilaudid requires adjustment but methadone does not. Would continue his methadone and decrease his PO Dilaudid to 1mg for breakthru pain. Dilaudid needs to be decreased by 50% for decreased renal or hepatic function. 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 Surgical History: Con resection with ostomy, mediport, prostatectomy Family History HTN Social History Smoking Status: Never Smoker History of Alcohol Use: No Drug Use: none Housing Status: lives with family Occupation Status: retired Son in Law provides care for him at home Review of Systems Unable to assess due to altered mental status Allergies Coded Allergies: Beta Adrenergic Blockers (Verified Allergy, Intermediate, hives, 04/27/17) Citalopram (Verified Allergy, Intermediate, hives, 04/24/17) Codeine (Verified Allergy, Intermediate, hives, 04/24/17) Iodine (Verified Allergy, Intermediate, hives, 04/24/17) Lisinopril (Verified Allergy, Intermediate, rash, 04/27/17) Metronidazole (Verified Allergy, Intermediate, hives, 04/27/17) Povidone Iodine (Verified Allergy, Intermediate, hives, 04/27/17) Tramadol (Verified Allergy, Intermediate, tightening of throat, 04/27/17) Atorvastatin (Verified Allergy, Mild, cramps and rash, 04/24/17) Herndon Blue FCF (Unverified Allergy, Mild, tightening of throat, rash and hives, 04/24/17) Dextromethorphan (Verified Allergy, Mild, tightening of throat, rash and hives, 04/27/17) Propylene Glycol (Unverified Allergy, Mild, tightening of throat, rash and hives, 04/24/17) Sodium Benzoate (Unverified Allergy, Mild, tightening of throat, rash and hives, 04/24/17) Adhesives (Verified Adverse Reaction, Mild, Rash - cloth & paper tape, 04/27) Uncoded Allergies: DIAL SOAP (Allergy, Intermediate, rash, 08/31/15) OPIUM NARCOTICS (Allergy, Intermediate, hives, 08/31/15) Medications Current Inpatient Medications Medications (Trade) Dose Ordered Sig/Lorenzo Route Start Time Stop Time Status Last Admin Dose Admin Bacitracin (Bacitracin Oint) 1 appln DAILY TOP 08/13/17 08:00 09/12/17 08:59 08/13/17 06:33 1 APPLN Folic Acid (Folvite Tab) 1 mg DAILY PO 08/13/17 08:00 09/12/17 08:59 08/13/17 08:17 1 MG Levothyroxine Sodium (Synthroid Tab) 50 mcg DAILYBB PO 08/13/17 06:30 09/12/17 06:59 08/14/17 05:39 50 MCG Lisinopril (Zestril Tab) 10 mg DAILY PO 08/13/17 08:00 1/19/18 08:59 08/13/17 08:17 10 MG Methadone HCl (Dolophine Tab) 10 mg TID PO 08/13/17 08:00 08/27/17 08:59 08/13/17 21:36 10 MG Mirtazapine (Remeron Tab) 30 mg HS PO 08/13/17 21:00 09/12/17 20:59 08/13/17 21:37 30 MG Nystatin (Mycostatin Powder) 1 appln DAILY EXT 08/13/17 08:00 09/12/17 08:59 08/13/17 08:17 1 APPLN Pravastatin Sodium (Pravachol Tab) 40 mg DAILY PO 08/13/17 08:00 09/12/17 08:59 08/13/17 08:17 40 MG Sertraline HCl (Zoloft Tab) 100 mg DAILY PO 08/13/17 08:00 09/12/17 08:59 08/13/17 08:17 100 MG Silver Sulfadiazine (Silvadene 1% Crm 50GM Jar) 1 appln DAILY EXT 08/13/17 08:00 09/12/17 08:59 08/13/17 06:33 1 APPLN Carbamazepine (Tegretol-Xr (Do Not Crush)) 400 mg DAILY PO 08/13/17 08:00 09/12/17 08:59 08/13/17 08:16 400 MG Hydromorphone HCl (Dilaudid Inj) 1 mg Q3H PRN IV 08/12/17 22:45 08/26/17 22:44 08/13/17 10:42 1 MG Acetaminophen (Tylenol Tab) 650 mg Q4H PRN PO 08/12/17 22:45 09/11/17 22:44 Al Hydrox/Mg Hydrox/Simethicone (Maalox Max Susp) 15 ml Q4H PRN PO 08/12/17 22:45 09/11/17 22:44 Magnesium Hydroxide (Milk Of Magnesia Susp) 30 ml Q6H PRN PO 08/12/17 22:45 09/11/17 22:44 Polyethylene (Miralax Powder Packet) 17 gm DAILY PRN PO 08/12/17 22:45 09/11/17 22:44 Ondansetron HCl (Zofran Inj) 4 mg Q6H PRN IV 08/12/17 22:45 09/11/17 22:44 08/13/17 08:13 4 MG Metoclopramide HCl (Reglan Inj) 10 mg Q8H PRN IV 08/12/17 23:00 09/11/17 22:59 08/13/17 00:39 10 MG Insulin Aspart (novoLOG ASPART) SLIDING SCALE G... ACHS SC 08/13/17 06:30 09/12/17 06:29 Glucose (Glucose 40% Gel) 15-30 GRAMS 15 GRAMS... UD PRN PO 08/12/17 23:15 09/11/17 23:14 Glucose (Glucose Chew Tab) 4-8 Tablets 4 Tabl... UD PRN PO 08/12/17 23:15 09/11/17 23:14 Dextrose (Dextrose 50% 50ML Syringe) 25-50ML OF 50% DW IV FOR... UD PRN IV 08/12/17 23:15 09/11/17 23:14 Glucagon (Glucagon Inj) 1 mg UD PRN SQ 08/12/17 23:15 09/11/17 23:14 Miscellaneous (Iv Fluids Completed) 1 ea PRN PRN N/A 08/12/17 23:45 08/12/18 23:44 Heparin Sodium (Porcine) (Heparin 100 Unit/ml 5ml Flush) 5 ml PRN PRN IV 08/13/17 01:00 09/12/17 00:59 08/14/17 06:00 5 ML Gabapentin (Neurontin Cap) 300 mg TID PO 08/13/17 20:00 09/12/17 19:59 08/13/17 21:36 300 MG Ioversol (Optiray 320) 125 ml UD PRN IV 08/14/17 09:30 08/18/17 09:29 Hydromorphone HCl (Dilaudid Tab) 1 mg Q3HWA PRN PO 08/14/17 09:30 08/28/17 09:29 Diphenhydramine HCl 50 mg/Syringe 1 ml @ 1 mls/min UD IV 08/14/17 09:30 09/13/17 09:29 UNV Physical Exam Date Time Temp Pulse Resp B/P (MAP) Pulse Ox O2 Delivery O2 Flow Rate FiO2 08/14/17 08:29 115/74 (88) 08/14/17 08:18 95 7 150/74 (99) 99 08/14/17 07:07 37.4 101 16 115/71 (86) 97 Nasal Cannula 2.0 08/14/17 04:21 37.4 87 18 108/67 (81) 99 Nasal Cannula 2.0 08/14/17 00:10 Room Air 08/13/17 23:28 36.6 114 20 142/81 (101) 92 Nasal Cannula 2.0 08/13/17 19:24 36.3 85 16 92/56 (68) 93 Room Air 08/13/17 16:00 Room Air 08/13/17 15:31 36.4 84 18 102/62 (75) 96 Room Air 08/13/17 11:54 36.5 81 18 111/70 (84) 92 Room Air General Appearance: no apparent distress, + pertinent finding (RR up to 16 , decreases to < 10) Eyes: EOMI ENT: + pertinent finding (mild [place]) Neck: supple Respiratory: + pertinent finding (slow RR, unlabored) Cardiovascular: regular rate, rhythm, + pertinent finding (LE edema - improved compared to last seen) Abdomen: + pertinent finding (no response to moderate palpation of abdomen, ostomy with light green material. NO palpable masses) Musculoskeletal: pertinent finding (generalized weakness - worse than prior , but not new) Neurologic/Psychiatric: + pertinent finding (no focal findings) Skin: + pallor Laboratory Results Last 24 Hours Test 08/13/17 12:18 08/13/17 16:11 08/13/17 16:29 08/13/17 20:04 Bedside Glucose 131 mg/dl 157 mg/dl 152 mg/dl Hemoglobin 7.7 g/dL Hematocrit 23.7 % Test 08/14/17 05:44 08/14/17 07:27 White Blood Count 11.10 K/uL Red Blood Count 2.83 M/uL Hemoglobin 8.2 g/dL Hematocrit 26.0 % Mean Corpuscular Volume 91.9 fL Mean Corpuscular Hemoglobin 29.0 pg Mean Corpuscular Hemoglobin Concent 31.5 g/dl Platelet Count 103 K/uL Mean Platelet Volume 10.0 fL Neutrophils (%) (Auto) 79.9 % Lymphocytes (%) (Auto) 9.5 % Monocytes (%) (Auto) 9.2 % Eosinophils (%) (Auto) 0.6 % Basophils (%) (Auto) 0.1 % Neutrophils # (Auto) 8.87 K/uL Lymphocytes # (Auto) 1.05 K/uL Monocytes # (Auto) 1.02 K/uL Eosinophils # (Auto) 0.07 K/uL Basophils # (Auto) 0.01 K/uL RDW Standard Deviation 67.7 fL RDW Coefficient of Variation 20.6 % Immature Granulocyte % (Auto) 0.7 % Immature Granulocyte # (Auto) 0.08 K/uL Nucleated RBC Absolute Count (auto) 0.04 K/uL Nucleated Red Blood Cells % 0.4 % Toxic Granulation 2+ Basophilic Stippling OCCASIONAL Anisocytosis PRESENT Tear Drop Cells OCCASIONAL Ovalocytes 1+ Sodium Level 137 mmol/L Potassium Level 3.6 mmol/L Chloride Level 106 mmol/L Carbon Dioxide Level 27 mmol/L Anion Gap 4.0 mmol/L Blood Urea Nitrogen 18 mg/dl Creatinine 0.75 mg/dl Est Creatinine Clear Calc Drug Dose 115.8 ml/min Estimated GFR () 110.8 Estimated GFR (Non- 95.6 BUN/Creatinine Ratio 23.9 Random Glucose 123 mg/dl Calcium Level 7.8 mg/dl Magnesium Level 2.0 mg/dl Bedside Glucose 133 mg/dl Assessment & Plan Palliative Performance Scale: 30 % (1) Chronic pain Status: Chronic Assessment & Plan: Followed by me in outpt clinic - on methadone only 10 mg TID as outpt (2) Weakness Status: Acute Assessment & Plan: Acute on chronic - partially due to his general condition and partially due to chemo (3) Depression Status: Chronic Assessment & Plan: On Remeron and Zoloft (4) Diabetes Status: Chronic Assessment & Plan: On Metformin at home, On SSI insulin inpt due to vomiting (5) Nausea & vomiting Status: Acute Assessment & Plan: on IV fluids and Zofran (6) Altered mental status Status: Acute Assessment & Plan: Will get urine tox to r/o other drugs than those prescribed. Would decrease PO Dilaudid to 1 mg prn. Plan to have discussion with pt and daughter/son in law when they can be present and when pt more alert regarding goals of care and further chemo. Total time 55 in with > 50% of time spent assessing pt and coordinating treatment with attending MD and nursing.
[2017-08-14] MEDS ORDERED: ERTAPENEM 1 GM ADDVIAL IV ONE (11:00)
[2017-08-14] MEDS: ERTAPENEM IV 1 GM in SODIUM CHLOR 0.9% AD-VAN 50ML 50 ML IV SCH (11:35)
--- NOTE | 2017-08-14 13:05 | Palliative Care Progress Note ---
Palliative Care Progress Note Date of Service Aug 14, 2017. Subjective Met with son in law and he gave me pt's bag of meds from home. Pt had filled most of his meds on 07/09 and most of the bottles had over 50% of pills in them - each contained a 30 day supply. He had 87 of 90 tabs of methadone in the bottle. Pt stated he had just finished his previous months bottle. CECELIA reports pt will often sleep 24 hours at a time and then 17 hours the following day. I decreased his methadone to 10 mg BID - his pain had been controlled on that dose when inpt in [place]. CECELIA reports pt has been getting weaker and has not been able to eat very much at home Total time 25 min with > 50% of time spent at bedside discussing POC with pt and CECELIA
--- NOTE | 2017-08-14 13:40 | NUR ---
Patient identified as a cancer patient currently receiving treatment. 67 year old male admitted with intractable nausea and vomiting who has metastatic colon cancer who lives alone in a one floor apartment in [place]. Patient's daughter is the POA. Patient has Waiver services for 41 hours per week. Patient's son in law is his caregiver. He sees the patient 6 days per week. Patient has a quad cane and a scooter for mobility. Son in law told me that they have moved around [facility]. Patient lived in [place] prior to moving to [place]. Patient currently sleeping and unable to participate in our discussion. Son in law is hopeful patient can return home. Will follow for discharge planning.
--- NOTE | 2017-08-14 15:18 | NUR ---
ROSA M received MD consult for hypoalbuminemia, colon cancer, and poor po intakes. F/U completed, refer to linked note for full assessment and recommendations. Addendum: 08/14/17 at [address] Amended: Links added.
--- NOTE | 2017-08-14 16:09 | Hematology/Oncology Prog Note ---
Hematology/Onc Progress Note Date of Service Aug 14, 2017. Diagnoses Metastatic rectal cancer Severe pain Nausea/vomiting Medications Medications Administered Medications (Trade) Dose Ordered Sig/Lorenzo Route Start Time Stop Time Status Last Admin Dose Admin Ondansetron HCl (Zofran 8mg Iv) 8 mg NOW STAT IV 08/12/17 21:21 08/12/17 21:23 DC 08/12/17 21:48 8 MG Sodium Chloride 1,000 ml @ 999 mls/hr Q1H1M STAT IV 08/12/17 21:21 08/12/17 22:21 DC 08/12/17 21:49 999 MLS/HR Morphine Sulfate (MoRPHine SULFATE INJ) 2 mg STK-MED ONCE .ROUTE 08/12/17 21:29 08/12/17 21:31 DC 08/12/17 21:48 2 MG Morphine Sulfate (MoRPHine SULFATE INJ) 4 mg STK-MED ONCE .ROUTE 08/12/17 21:30 08/12/17 21:31 DC 08/12/17 21:48 4 MG Bacitracin (Bacitracin Oint) 1 appln DAILY TOP 08/13/17 08:00 09/12/17 08:59 08/13/17 06:33 1 APPLN Folic Acid (Folvite Tab) 1 mg DAILY PO 08/13/17 08:00 09/12/17 08:59 08/13/17 08:17 1 MG Levothyroxine Sodium (Synthroid Tab) 50 mcg DAILYBB PO 08/13/17 06:30 09/12/17 06:59 08/14/17 05:39 50 MCG Lisinopril (Zestril Tab) 10 mg DAILY PO 08/13/17 08:00 09/12/17 08:59 08/13/17 08:17 10 MG Methadone HCl (Dolophine Tab) 10 mg TID PO 08/13/17 08:00 08/14/17 14:15 DC 08/13/17 21:36 10 MG Mirtazapine (Remeron Tab) 30 mg HS PO 08/13/17 21:00 09/12/17 20:59 08/13/17 21:37 30 MG Nystatin (Mycostatin Powder) 1 appln DAILY EXT 08/13/17 08:00 09/12/17 08:59 08/13/17 08:17 1 APPLN Pravastatin Sodium (Pravachol Tab) 40 mg DAILY PO 08/13/17 08:00 09/12/17 08:59 08/13/17 08:17 40 MG Sertraline HCl (Zoloft Tab) 100 mg DAILY PO 08/13/17 08:00 09/12/17 08:59 08/13/17 08:17 100 MG Silver Sulfadiazine (Silvadene 1% Crm 50GM Jar) 1 appln DAILY EXT 08/13/17 08:00 09/12/17 08:59 08/13/17 06:33 1 APPLN Carbamazepine (Tegretol-Xr (Do Not Crush)) 400 mg DAILY PO 08/13/17 08:00 09/12/17 08:59 08/13/17 08:16 400 MG Hydromorphone HCl (Dilaudid Inj) 1 mg Q3H PRN IV 08/12/17 22:45 08/14/17 10:15 DC 08/13/17 10:42 1 MG Potassium Chloride/Sodium Chloride 1,000 ml @ 100 mls/hr Q10H IV 08/13/17 00:30 08/13/17 20:29 DC 08/13/17 10:38 100 MLS/HR Ondansetron HCl (Zofran Inj) 4 mg Q6H PRN IV 08/12/17 22:45 09/11/17 22:44 08/13/17 08:13 4 MG Metoclopramide HCl (Reglan Inj) 10 mg Q8H PRN IV 08/12/17 23:00 09/11/17 22:59 08/13/17 00:39 10 MG Heparin Sodium (Porcine) (Heparin 100 Unit/ml 5ml Flush) 5 ml PRN PRN IV 08/13/17 01:00 09/12/17 00:59 08/14/17 06:00 5 ML Hydromorphone HCl (Dilaudid Tab) 2 mg Q3HWA PRN PO 08/13/17 14:15 08/14/17 09:17 DC 08/13/17 21:36 2 MG Gabapentin (Neurontin Cap) 300 mg TID PO 08/13/17 20:00 09/12/17 19:59 08/14/17 14:40 300 MG Naloxone HCl (Narcan Inj) 0.4 mg STK-MED ONCE .ROUTE 08/14/17 09:10 08/14/17 09:11 DC 08/14/17 09:12 0.4 MG Ertapenem 1 gm/ Sodium Chloride 50 ml @ 120 mls/hr Q24H IV 08/14/17 11:30 08/19/17 11:29 08/14/17 11:35 120 MLS/HR Subjective Mr. Malone was arousable but heavily sedated when I saw him today. He could recall his name, but otherwise did not respond to questions. He was breathing slowly and erratically. As I was evaluating him, Dr. Thomas and Emeli Veronica from palliative care were also at the bedside, evaluating him for this issue. Review of Systems: Not verbally responsive Vital Signs Vital Signs Past 12 Hours Date Time Temp Pulse Resp B/P (MAP) Pulse Ox O2 Delivery O2 Flow Rate FiO2 08/14/17 14:52 36.4 66 20 117/69 (85) 99 Nasal Cannula 2.0 08/14/17 11:07 37.4 61 16 104/68 (80) 99 Nasal Cannula 2.0 08/14/17 08:29 115/74 (88) 08/14/17 08:18 95 7 150/74 (99) 99 08/14/17 08:10 97 Nasal Cannula 2.0 08/14/17 07:07 37.4 101 16 115/71 (86) 97 Nasal Cannula 2.0 08/14/17 04:21 37.4 87 18 108/67 (81) 99 Nasal Cannula 2.0 Physical Exam Constitutional: General Apperance: obese Level of Distress: acutely ill Psychiatric: Mental Status: lethargic, confused Orientation: to person Eyes: Pupils: pertinent finding (pinpoint pupils) Lungs: Auscuitation: pertinent finding (bradypneic) Cardiovascular: Heart Auscultation: RRR Abdomen: Inspection & Palpation: soft, no tenderness, guarding & rebound Laboratory Last 24 Hours Test 08/13/17 16:11 08/13/17 16:29 08/13/17 20:04 08/14/17 05:44 Hemoglobin 7.7 g/dL 8.2 g/dL Hematocrit 23.7 % 26.0 % Bedside Glucose 157 mg/dl 152 mg/dl White Blood Count 11.10 K/uL Red Blood Count 2.83 M/uL Mean Corpuscular Volume 91.9 fL Mean Corpuscular Hemoglobin 29.0 pg Mean Corpuscular Hemoglobin Concent 31.5 g/dl Platelet Count 103 K/uL Mean Platelet Volume 10.0 fL Neutrophils (%) (Auto) 79.9 % Lymphocytes (%) (Auto) 9.5 % Monocytes (%) (Auto) 9.2 % Eosinophils (%) (Auto) 0.6 % Basophils (%) (Auto) 0.1 % Neutrophils # (Auto) 8.87 K/uL Lymphocytes # (Auto) 1.05 K/uL Monocytes # (Auto) 1.02 K/uL Eosinophils # (Auto) 0.07 K/uL Basophils # (Auto) 0.01 K/uL RDW Standard Deviation 67.7 fL RDW Coefficient of Variation 20.6 % Immature Granulocyte % (Auto) 0.7 % Immature Granulocyte # (Auto) 0.08 K/uL Nucleated RBC Absolute Count (auto) 0.04 K/uL Nucleated Red Blood Cells % 0.4 % Toxic Granulation 2+ Basophilic Stippling OCCASIONAL Anisocytosis PRESENT Tear Drop Cells OCCASIONAL Ovalocytes 1+ Sodium Level 137 mmol/L Potassium Level 3.6 mmol/L Chloride Level 106 mmol/L Carbon Dioxide Level 27 mmol/L Anion Gap 4.0 mmol/L Blood Urea Nitrogen 18 mg/dl Creatinine 0.75 mg/dl Est Creatinine Clear Calc Drug Dose 115.8 ml/min Estimated GFR () 110.8 Estimated GFR (Non- 95.6 BUN/Creatinine Ratio 23.9 Random Glucose 123 mg/dl Calcium Level 7.8 mg/dl Magnesium Level 2.0 mg/dl Test 08/14/17 07:27 08/14/17 10:35 08/14/17 11:21 Bedside Glucose 133 mg/dl 129 mg/dl Urine Opiates Screen POS Urine Methadone, Qualitative POS Urine Barbiturates NEG Urine Phencyclidine (PCP) Level NEG Ur Amphetamine/Methamphetamine NEG MDMA (Ecstasy) Screen NEG Urine Benzodiazepines Screen NEG Urine Cocaine Metabolite NEG Urine Marijuana (THC) NEG Assessment & Plan Mr. Malone was acutely sedated, likely due to poor clearance of his opiate pain medication. Dr. Thomas was at the bedside and planned to administer Narcan shortly after my encounter. Mr. Malone's condition continues to deteriorate and I suspect he may have progressive disease. At a minimum, he is not a good candidate for further chemotherapy at this time. I will review his case with Dr. Nath, his primary oncologist, and he will contact Mr. Malone's family to discuss goals of care moving forward. In the meantime, optimal supportive measures should be continued.
--- NOTE | 2017-08-14 16:14 | NUR ---
CWOCN NOTE CONSULT FOR PT BEING TREATED AT [facility] FOR A RIGHT 2 TOE WOUND, ON ASSESSMENT THE WOUND IS NEARLY HEALED. WOUND COVERED WITH OPTIFOAM TO BE CHANGED Q 3 DAYS AND PRN. PT HAS OSTOMY, CONCERN NOTED BY [facility] FOR PERISTOMAL BREAKDOWN. IN TO SEE PT. WILL HAVE WOCN ON DUTY F/U TOMORROW FOR OSTOMY CARE. REPORT GIVEN TO FABIOLA. CWOCN. RIGHT 2ND TOE HAS CALLOUS ON THE TIP WITH SMALL AREA OF ESCHAR, NO DRESSING NEEDED AT THIS TIME. PT CONSIDERING PALLIATIVE CARE ONLY AT THIS TIME. IF PT DECIDES A [facility] ANALYST MAY BE BENEFICIAL. PT AND SON STATED THEY DID NOT SEE THE NEED FOR A REFERRAL AT THIS TIME.
--- NOTE | 2017-08-14 17:17 | DIAGNOSTIC IMAGING REPORT ---
ABDOMEN AND PELVIS CT WITH IV CONTRAST CT DOSE: 1378.48 mGycm HISTORY: staging of colon cx, worsening nausea and vomiting TECHNIQUE: Multiaxial CT images of the abdomen and pelvis were performed following the use of intravenous contrast. A dose lowering technique was utilized adhering to the principles of ALARA. COMPARISON STUDY: Abdomen and pelvis CT 07/31/2017. FINDINGS: Progressive interstitial thickening and groundglass opacities within the lung bases. 8 mm cavitary nodule within the base of the right lower lobe is again noted. There is also a stable 8 mm nodule within the right middle lobe. No suspicious lytic or blastic osseous lesions. Nodular contour to the liver consistent with cirrhosis. A 2 cm hypodense lesion within the left hepatic dome is again noted. The spleen remains mildly enlarged. The kidneys, adrenal glands, pancreas, and gallbladder are unremarkable. No significant retroperitoneal lymphadenopathy. Moderate bladder wall thickening which has progressed. There is no punctate focus of gas within the bladder. There are small foci of gas posterior to the bladder which could be in the seminal vesicles suggesting the possibility of a fistula or an interposed loop of small bowel. Thick-walled presacral gas and fluid collection with surrounding soft tissue thickening/fat stranding is again noted. There is associated suture material. Therefore, this favors the residual rectum and measures 6 cm, unchanged. However, if the rectum has been removed, then this is consistent with a abscess. Midline colostomy is again noted. There is also a left lower quadrant fistula at the sigmoid colon which abuts the anterior abdominal wall. This does not appear to extend to the skin surface. Small focus of gas at the abdominal wall has progressed. IMPRESSION: 1. Thick-walled gas and fluid collection the presacral space persists and measures 6 cm. There is associated suture material at this collection. Therefore, this may represent the residual rectum. However, if the patient has a prior proctectomy then this is consistent with an abscess. 2. Small foci of gas between the bladder and presacral fluid collection which could be within the seminal vesicles or an interposed loop of small bowel. If this is located within the seminal vesicles, then this is concerning for a small fistula. 3. Progressive thickening of the bladder wall which also contains small foci of gas. This could be due to recent catheterization or could also represent a fistula from the presacral fluid collection. 4. Small focus of gas within the left rectus abdominis muscles at the location of the blind end of the sigmoid colon. This is slightly progressed and is concerning for a fistula. This does not extend to the skin surface. 5. Progressive interstitial thickening and groundglass opacities within the lung bases consistent with a pneumonitis. 6. Additional findings as described above. Electronically signed by: Haider Solis M.D. 08/14/2017 5:15 PM Dictated Date/Time: 08/14/2017 4:57 PM
--- NOTE | 2017-08-14 18:23 | NUR ---
ID: Pt had RR of 7 this am that required narcan x1 today. After administration RR increased to 16 and pt gradually became more arousable. Other VSS on 2L nc. Pt had no complaints of nausea or pain. methadone dosage decreased to 10mg BID. Patients son-in-law at bedside most of the afternoon. Pt seen by PT/OT, oncology, palliative, pain management, and hospitalist.
--- NOTE | 2017-08-14 20:00 | NUR ---
A: IV team notified about patient needing new A-port dressing. IV team instructed to put tegaderm over A-port site. This nurse assisted with Yakelin Duong RN to place 4 tegaderm over A-port site.
[2017-08-14] MEDS: MIRTAZAPINE TAB 15 MG TAB PO SCH (20:23)
[2017-08-15 00:05] VITALS: BP 123/72; PULSE 62; TEMP 36.3; O2SAT 100
[2017-08-15 04:20] VITALS: BP 103/62; PULSE 59; TEMP 36.2; O2SAT 100
[2017-08-15] MEDS: LEVOTHYROXINE 50 MCG TAB PO SCH (05:39)
[2017-08-15] MEDS: INSULIN ASPART 100 UNITS/ML 3 ML PEN SC SCH ×3 (06:30→16:30)
--- NOTE | 2017-08-15 06:40 | NUR ---
A: I agree with all documentation completed by Yakelin Duong RN.
--- NOTE | 2017-08-15 07:18 | Clinical Documentation Query ---
CLINICAL DOCUMENTATION QUERY 67 yo male admitted with weakness, nausea, vomiting and intractable pain and has an episode of "acute respiratory distress". In your clinical opinion is this patient being managed for: ( ) Acute respiratory failure, resolved ( x ) Not Agree, only have "acute respiratory distress with low RR at 5-7, which is resolved after Narcan ( ) Other explanation of clinical findings (Please Explain) ( ) Unable to determine (Please Define) ( ) Need to Discuss The medical record reflects the following clinical findings, treatment, and risk factors. Clinical Indicators: Respiratory rate 7, unresponsive Treatment: Narco IV, monitor Risk Factors: Cancer, intractable pain, narcotic use Please clarify and document your clinical opinion in the progress notes and discharge summary. Terms such as "probable", "suspected", "likely", "questionable", "possible", or "still to be ruled out" are acceptable. IF IN AGREEMENT, YOU MUST DOCUMENT ABOVE DIAGNOSTIC STATEMENT IN DAILY PROGRESS NOTES AND DISCHARGE SUMMARY. This document is not part of the patient's record. Thank You, Dominga Ambrosio RN [phone]
[2017-08-15 07:37] VITALS: BP 121/73; PULSE 72; TEMP 36.4; O2SAT 100
[2017-08-15] MEDS: SERTRALINE HCL 100 MG TAB PO SCH (08:44)
[2017-08-15] MEDS: PRAVASTATIN SOD 40 MG TAB PO SCH (08:44)
[2017-08-15] MEDS: GABAPENTIN 300 MG CAP PO SCH ×3 (08:44→20:31)
[2017-08-15] MEDS: LISINOPRIL 10 MG TAB PO SCH (08:44)
[2017-08-15] MEDS: CARBAMAZEPINE 200 MG TABCR PO SCH (08:45)
[2017-08-15] MEDS: METHADONE HCL 10 MG TAB PO SCH ×2 (08:49→20:34)
[2017-08-15] MEDS: ONDANSETRON INJ 2 MG/ML 2 ML VIAL IV PRN (08:53)
--- NOTE | 2017-08-15 08:58 | Progress Note ---
Subjective Date of Service: Aug 15, 2017. Subjective Pt evaluation today including: conversation w/ patient, conversation w/ family , physical exam, chart review, lab review, review of studies, conversation w/ road consultant, review of inpatient medication list Pain level is as usual, which is 12.5 out of 10, he is awake and alert and orientated, reported generalized weakness and tired, no nausea vomiting Problem List Medical Problems: (1) Abdominal wall cellulitis Status: Acute (2) Dehydration Status: Acute (3) Failure of outpatient treatment Status: Acute (4) Nausea & vomiting Status: Acute (5) Weakness Status: Acute Review of Systems Constitutional: + weakness, + fatigue, No see HPI, No fever, No chills, No sweats, No weight loss, No problem reported Eyes: No see HPI, No worsening of vision, No eye pain, No redness, No discharge , No diplopia, No problem reported ENT: No see HPI, No hearing loss, No unusual epistaxis, No nasal symptoms, No sore throat, No tinnitus, No dental problems, No trouble swallowing, No problem reported Respiratory: No see HPI, No cough, No sputum, No wheezing, No shortness of breath, No dyspnea on exertion, No dyspnea at rest, No hemoptysis, No problem reported Cardiac: No see HPI, No chest pain, No orthopnea, No PND, No edema, No claudication, No palpitations, No problem reported Abdomen: + pain, + nausea Male : + incontinence, No see HPI, No nocturia more than once/night, No slowing stream, No hematuria, No sexual dysfunction, No problem reported Psychiatric: No see HPI, No depression symptoms, No anhedonism, No anxiety, No insomnia, No substance abuse, No problem reported Heme: No see HPI, No abnormal bleeding/bruising, No clotting problems, No swollen lymph nodes, No night sweats, No problem reported Skin: No see HPI, No rash, No itch, No new/changing skin lesions, No color change, No bleeding, No problem reported Objective Vital Signs Date Time Temp Pulse Resp B/P (MAP) Pulse Ox O2 Delivery O2 Flow Rate FiO2 08/15/17 07:37 36.4 72 18 121/73 (89) 100 2.0 08/15/17 04:20 36.2 59 16 103/62 (76) 100 Nasal Cannula 2.0 08/15/17 00:05 36.3 62 16 123/72 (89) 100 Nasal Cannula 2.0 08/15/17 00:00 Nasal Cannula 2.0 08/14/17 19:22 36.7 62 16 109/68 (82) 100 Nasal Cannula 2.5 08/14/17 19:00 Nasal Cannula 2.0 08/14/17 17:00 97 Nasal Cannula 2.0 08/14/17 14:52 36.4 66 20 117/69 (85) 99 Nasal Cannula 2.0 08/14/17 11:07 37.4 61 16 104/68 (80) 99 Nasal Cannula 2.0 Physical Exam General Appearance: + pertinent finding (mild pale,) Eyes: normal inspection, PERRL, EOMI, sclerae normal ENT: normal ENT inspection, hearing grossly normal, pharynx normal Neck: supple, no adenopathy, thyroid normal, no JVD, no carotid bruits, trachea midline Respiratory/Chest: normal breath sounds, no respiratory distress, no accessory muscle use, + decreased breath sounds, + pertinent finding (left anterior chest wall has med port) Cardiovascular: regular rate, rhythm, no edema, no gallop, no JVD, no murmur Abdomen: normal bowel sounds, non tender, soft, no organomegaly, no pulsatile mass, + pertinent finding (right upper quadrant of abdomen has colostomy bag, with yellow stool) Extremities: normal range of motion, non-tender, normal inspection, + pertinent finding (trace edema, right big toe has skin red, but has no no open wound) Neurologic/Psychiatric: ux manager II-XII nml as tested, no motor/sensory deficits, alert, normal mood/affect Laboratory Results Last 24 Hours Test 08/14/17 10:35 08/14/17 11:21 08/14/17 16:59 08/14/17 20:04 Urine Opiates Screen POS Urine Methadone, Qualitative POS Urine Barbiturates NEG Urine Phencyclidine (PCP) Level NEG Ur Amphetamine/Methamphetamine NEG MDMA (Ecstasy) Screen NEG Urine Benzodiazepines Screen NEG Urine Cocaine Metabolite NEG Urine Marijuana (THC) NEG Bedside Glucose 129 mg/dl 94 mg/dl 122 mg/dl Test 08/15/17 07:54 Bedside Glucose 88 mg/dl Assessment and Plan 67 y/o M with metastatic colorectal CA with progressive weakness over the past 5 days in addition to intractable generalized pain and intractable nausea and vomiting s/p chemo therapy 2 weeks ago. acute respiratory distress with low RR at 5-7, which is resolved after Narcan, currently doing well Patient was getting Dilaudid, was on on methadone, which is 10 mg by mouth 3 times a day, prior to these episodes Mestinon is continue with parameter to hold Intractable nausea and vomiting, chemotherapy or cancer related: Currently stable, supportive care, tx symptoms Met colorectal CA to liver and lungs, Last round of chemotherapy was about 2 weeks and follows with Dr. 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, continue antibiotic, follow-up sensitivity, patient is urine incontinent Thick-walled gas and fluid collection the presacral space persists and measures 6 cm, in abdominal CT studies, discussed with surgeon, there is no abscess Hx DM, HPL, liver cirrhosis on recent imaging cont current and sliding scale until tolerating PO Chronic anemia, hemoglobin stable intractable pain related to cancer and neuropathy, pain magt input appreciated, continue current dose of methadone scheduled and Dilaudid by mouth as needed Wound of R toe, local only has skin red, no open wound looks fair DNR next step of plan will need more input from oncologist and palliative care and discussion with patient and family, likely end-stage cancer disease, poor prognosis, feel palliative care/hospice care will be next step Continued [facility] stay due to: home environment unsafe for pt Discharge planning: uncertain
[2017-08-15] MEDS: NYSTATIN POWDER 15GM BTL EXT SCH (09:17)
--- NOTE | 2017-08-15 09:37 | CONSULTATION REPORT ---
DATE OF CONSULTATION: 08/15/2017 REASON FOR CONSULTATION: Possible rectal abscess by Dr. Thomas. SUMMARY: Mr. Malone is a patient known to me from the past. I put an A-port in approximately a year and a half ago for a complicated colonic cancer. He has had all by his primary care as far as the surgery other than the A-port down at [place]. We were asked to see him regarding possibility of a rectal abscess. On examination, Joseph is very frail looking. He obviously has lost a significant amount of weight since last seen. He is alert, coherent, not complaining of any perirectal pain. The abdomen is completely benign. The last time I had seen him, he had some abdominal wall cellulitis, which I do not appreciate at this time. The patient was turned on his left side. The perianal area was visualized. There is no evidence of any rectal abscess appreciated. There is no induration. The CAT scan I reviewed with the radiologist and the summary is this. The patient has had a CAT scan done on 07/31/2017 where it at that time showed some induration between the bladder and the rectal stump with some air in the rectal stump along the suture line. On the most recent CAT scan done yesterday showed what appears to be air in the bladder consistent with what is likely a fistula since the patient has not had any instrumentation of his bladder. There was also a question of a fistulous tract in the end colostomy in the sigmoid area, which certainly does not appear to be just some air in the sigmoid and stump. There is no tenderness in the area. The case was discussed in detail with Dr. Thomas and advised him at this time that there is nothing surgical to be done from our point of view. 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 Further evaluation might be considered. We will have an urologist see the patient, but at this point, there is nothing surgically that needs to be done from our point of view. I suggested Dr. Thomas that I wanted to review the CAT scan also with the radiologist to visualize exactly what is going on.
[2017-08-15 11:31] VITALS: BP 104/64; PULSE 57; TEMP 36.4; O2SAT 100
--- NOTE | 2017-08-15 11:34 | Hospitalist Progress Note ---
Hospitalist Progress Note Date of Service Aug 15, 2017. Subjective Pt evaluation today including: conversation w/ patient, physical exam, chart review, lab review, review of studies Pain: Moderate abdominal PO Intake: Fair Voiding: no voiding problems The patient was seen and examined this morning, and was sleeping upon entry. Patient reports his pain is rated at 12 out of 10, he notes that this is unchanged and ongoing. Despite the pain, he is able to move his arms about in bed, rolled from side to side for me to auscultate his lung angulo and talk to me without any difficulty. He does not recall much from yesterday. He has been tolerating slightly more clear liquids and his nausea has improved. He was able to ingest Jell-O, a small amount of beef broth, and other juice earlier today. Stool is moving through ostomy output adequately. He reports speaking with Dr. Scott last evening, in the conversation indicated a worse appearance of CT scan. He reports physician spoke with his son-in-law outside the room. Additional Comments: Constitutional: No fever, sweats or chills, sleeping a large portion of the day 3 weeks ENT: normal hearing, no trouble swallowing Respiratory: No cough, no dyspnea at rest Cardiovascular: No chest pain, tightness or palpitations Abdomen: See history of present illness Neurologic: + weakness, No numbness/tingling, or balance problems Skin: No rash or itch Objective Vital Signs Date Time Temp Pulse Resp B/P (MAP) Pulse Ox O2 Delivery O2 Flow Rate FiO2 08/15/17 08:00 Room Air 08/15/17 07:37 36.4 72 18 121/73 (89) 100 2.0 08/15/17 04:20 36.2 59 16 103/62 (76) 100 Nasal Cannula 2.0 08/15/17 00:05 36.3 62 16 123/72 (89) 100 Nasal Cannula 2.0 08/15/17 00:00 Nasal Cannula 2.0 08/14/17 19:22 36.7 62 16 109/68 (82) 100 Nasal Cannula 2.5 08/14/17 19:00 Nasal Cannula 2.0 08/14/17 17:00 97 Nasal Cannula 2.0 08/14/17 14:52 36.4 66 20 117/69 (85) 99 Nasal Cannula 2.0 Laboratory Results Last 24 Hours Test 08/14/17 11:21 08/14/17 16:59 08/14/17 20:04 08/15/17 07:54 Bedside Glucose 129 mg/dl 94 mg/dl 122 mg/dl 88 mg/dl Assessment and Plan 67 y/o M Hx DM, HPL, liver cirrhosis on recent imaging, metastatic colorectal CA. Pt presents with progressive weakness over the past 5 days in addition to intractable generalized pain and intractable nausea and vomiting. He has not been able to tolerate solids or fluids for a few days. He states that his pain is severe and generalized, involving most of his joints and could not localize any specific area, He denies CP, abdominal pain or fevers. The pt has a colostomy bag and has not had a change in output or stool consistency. Intractable nausea and vomiting - Likely related to chemotherapy - placed on clear diet, antiemetics, IVF - diuretic held due to clinical dehydration. - Continue supportive care - Currently his abdomen is soft and there is output in his colostomy bag, minimal pain with palpation on exam although he rates this as a 12 out of 10 - Oncology consulted- appreciate recs - Palliative med consulted. Will also consult nutrition as pt albumin is decreasing and pt may be unable to tolerate chemotherapy at this time if continued poor oral intake. - CT abd /pelvis completed on 08/14 - reviewed : -General surgery was consulted due to results which were showing possible fistulous tract in the end colostomy in the sigmoid area. 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 -No surgical intervention required at this time - Urology consulted for possible bladder fistula Hypoventilation likely secondary to narcotic use - Occurred on 08/14 - Pt was administered narcan for RR of 7, and symptoms resolved with a RR of 16 since narcan administration Intractable pain - will remain on Methadone 10 mg BID, dilaudid has been decreased to 0.5 mg Q3HWA since episode of hypoventilation yesterday. Continue gabapentin. - Pain management consulted: appreciate recs - Spoke with Dr. Mccoy who knows the patient prior to this hospitalization, she reports that he has had methadone adjustments from 10 twice a day to 3 times a day several months ago and did not seem to make a difference with control of his pain. She reports he sleeps anywhere from 17 hours one day to 23 for the next and that this has been ongoing for 3 weeks despite medication adjustments. DM - placed on sliding scale until tolerating PO Met colorectal CA - Heme/onc consulted and appreciate recs Anemia - Hgb improved up to high 8s - Continue trend labs every other day labs, possible dilutional with dehydration and IVF administration - no apparent GI blood loss through colostomy bag - Last round of chemotherapy was about 2.5 weeks ago and follows with Dr. Nichols Wound of R toe - being treated topically at present CODE STATUS: DNR Dispostion: From home, CM to assist with dc planning
[2017-08-15] MEDS ORDERED: NYSTATIN SUSP 500,000 U/5 ML UDC PO STA (11:59)
[2017-08-15] MEDS: NYSTATIN SUSP 500,000 U/5 ML UDC PO SCH ×3 (12:00→20:30)
[2017-08-15] MEDS: ERTAPENEM IV 1 GM in SODIUM CHLOR 0.9% AD-VAN 50ML 50 ML IV SCH (12:51)
--- NOTE | 2017-08-15 13:50 | Palliative Care Progress Note ---
Palliative Care Progress Note Date of Service Aug 15, 2017. Subjective Pt evaluation today including: conversation w/ family, chart review, review of studies, conversation w/ eligibility consultant Pain: none by exam PO Intake: poor Met with daughter and son in law to discuss POC. Pt minimally responsive, appears comfortable Review of Systems Unable to obtain - pt minimally responsive, falls asleep after one brief question Objective Vital Signs Date Time Temp Pulse Resp B/P (MAP) Pulse Ox O2 Delivery O2 Flow Rate FiO2 08/15/17 11:31 36.4 57 16 104/64 (77) 100 2.0 08/15/17 08:00 Room Air 08/15/17 07:37 36.4 72 18 121/73 (89) 100 2.0 08/15/17 04:20 36.2 59 16 103/62 (76) 100 Nasal Cannula 2.0 08/15/17 00:05 36.3 62 16 123/72 (89) 100 Nasal Cannula 2.0 08/15/17 00:00 Nasal Cannula 2.0 08/14/17 19:22 36.7 62 16 109/68 (82) 100 Nasal Cannula 2.5 08/14/17 19:00 Nasal Cannula 2.0 08/14/17 17:00 97 Nasal Cannula 2.0 08/14/17 14:52 36.4 66 20 117/69 (85) 99 Nasal Cannula 2.0 Physical Exam General Appearance: no apparent distress Eyes: EOMI ENT: hearing grossly normal Neck: supple Respiratory/Chest: + decreased breath sounds Cardiovascular: regular rate, rhythm Abdomen: non tender (with deep palpation), + pertinent finding (diminished bowel sounds. ostomy draining small amount of material) Extremities: + pedal edema Neurologic/Psychiatric: + motor weakness, + pertinent finding (decreased LOC) Skin: warm/dry, + pallor Laboratory Results Last 24 Hours Test 08/14/17 16:59 08/14/17 20:04 08/15/17 07:54 08/15/17 11:13 Bedside Glucose 94 mg/dl 122 mg/dl 88 mg/dl 109 mg/dl Assessment and Plan (1) Chronic pain Status: Chronic Assessment & Plan: Well controlled on methadone alone - required no prns overnight for pain. Consider weaning methadone slowly to avoid withdraw sx if no longer able to take slurried or liquid meds. 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 - now has Proteus in urine - family OK with IV antibiotics for now (3) Diabetes Status: Chronic Assessment & Plan: has not required any insulin since admission (4) Nausea & vomiting Status: Acute Assessment & Plan: No vomiting , cont prn Zofran (5) Altered mental status Status: Acute Assessment & Plan: Likely due to general decline over the past 3-4 weeks - pt not likely to recover - pt is a DNR, family OK with comfort care Total time spent with family at bedside discussing prognosis and POC 45 min Palliative Performance Scale: 30 % Continued [facility] stay due to: inadequate po fluid intake, ambulation difficulties , home environment unsafe for pt Discharge planning: uncertain
--- NOTE | 2017-08-15 16:29 | NUR ---
Chart reviewed. Patient now receiving comfort care. Son in law was in the room earlier. Will follow for discharge planning.
[2017-08-15] MEDS ORDERED: NURSING VERBAL MED ORDER ONE (17:45)
[2017-08-15] MEDS: MIRTAZAPINE TAB 15 MG TAB PO SCH (20:31)
[2017-08-15] MEDS: HYDROmorphone HCL 2 MG TAB PO PRN (20:40)
[2017-08-16] MEDS: LEVOTHYROXINE 50 MCG TAB PO SCH (06:45)
[2017-08-16 08:00] VITALS: O2SAT 100
[2017-08-16 08:09] VITALS: BP 132/82; PULSE 73
[2017-08-16] MEDS: NYSTATIN POWDER 15GM BTL EXT SCH (08:09)
[2017-08-16] MEDS: SERTRALINE HCL 100 MG TAB PO SCH (08:10)
[2017-08-16] MEDS: CARBAMAZEPINE 200 MG TABCR PO SCH (08:10)
[2017-08-16] MEDS: METHADONE HCL 10 MG TAB PO SCH ×2 (08:10→21:08)
[2017-08-16] MEDS: LISINOPRIL 10 MG TAB PO SCH (08:10)
[2017-08-16] MEDS: GABAPENTIN 300 MG CAP PO SCH ×3 (08:10→20:56)
[2017-08-16] MEDS: NYSTATIN SUSP 500,000 U/5 ML UDC PO SCH ×4 (08:11→20:55)
--- NOTE | 2017-08-16 08:37 | Hospitalist Progress Note ---
Hospitalist Progress Note Date of Service Aug 16, 2017. (Shalini Wick, TROY) Subjective Pt evaluation today including: conversation w/ patient, physical exam, chart review, lab review, review of studies The patient was seen and examined this morning. Pt reports feeling about the same. Again he is sleeping upon entry but is easily awakened. He reports nausea is a little better today. No changes in pain. Additional Comments: Constitutional: No fever, sweats or chills, sleeping a large portion of the day 3 weeks ENT: normal hearing, no trouble swallowing Respiratory: No cough, no dyspnea at rest Cardiovascular: No chest pain, tightness or palpitations Abdomen: See history of present illness Neurologic: + weakness, No numbness/tingling, or balance problems Skin: No rash or itch (Shalini Wick, TROY) Pt evaluation today including: conversation w/ patient, physical exam, chart review, lab review Patient is seen and examined by me. Agree with PA plan. Pt symptoms are improving and clinically patient is stable. Hgb stable at this time. (Nihcole Campo MD) Medications Last Resulted CBC 08/14/17 05:44 Red Blood Count 2.83, Mean Corpuscular Volume 91.9, Mean Corpuscular Hemoglobin 29.0, Mean Corpuscular Hemoglobin Concent 31.5, Mean Platelet Volume 10.0, Neutrophils (%) (Auto) 79.9, Lymphocytes (%) (Auto) 9.5, Monocytes (%) (Auto) 9.2, Eosinophils (%) (Auto) 0.6, Basophils (%) (Auto) 0.1, Neutrophils # (Auto) 8.87, Lymphocytes # (Auto) 1.05, Monocytes # (Auto) 1.02, Eosinophils # (Auto) 0.07, Basophils # (Auto) 0.01 Last Resulted BMP 08/14/17 05:44 (Nichole Campo MD) Objective Vital Signs Date Time Temp Pulse Resp B/P (MAP) Pulse Ox O2 Delivery O2 Flow Rate FiO2 08/16/17 08:09 73 132/82 (99) 08/16/17 00:33 Nasal Cannula 2.0 08/15/17 20:30 Nasal Cannula 2.0 08/15/17 11:31 36.4 57 16 104/64 (79) 100 2.0 (Shalini Wick PA-C) Physical Exam General Appearance: WD/WN, no apparent distress, + pertinent finding (sleeping upon entry) Eyes: PERRL, EOMI ENT: hearing grossly normal, pharynx normal Neck: supple, no JVD Respiratory/Chest: no respiratory distress, no accessory muscle use, + pertinent finding Abdomen: normal bowel sounds, soft Extremities: + pedal edema (1+ pitting ) Neurologic/Psychiatric: alert Skin: normal color, warm/dry, + pallor Notes: Rest of exam deferred due to being on comfort care. (Shalini Wick PA-C) Laboratory Results Last 24 Hours Test 08/15/17 11:13 08/16/17 07:56 Bedside Glucose 109 mg/dl 90 mg/dl (Shalini Wick PA-C) Assessment and Plan 67 y/o M Hx DM, HPL, liver cirrhosis on recent imaging, metastatic colorectal CA. Pt presents with progressive weakness over the past 5 days in addition to intractable generalized pain and intractable nausea and vomiting. He has not been able to tolerate solids or fluids for a few days. He states that his pain is severe and generalized, involving most of his joints and could not localize any specific area, He denies CP, abdominal pain or fevers. The pt has a colostomy bag and has not had a change in output or stool consistency. Transition to Comfort Care - CM assisting initiation of hospice, unlikely that the patient can return home - CM assisting with placement Intractable nausea and vomiting - Likely related to chemotherapy - placed on clear diet, antiemetics, IVF - diuretic held due to clinical dehydration. - Continue supportive care - abdomen is soft, output in his colostomy bag - Pain remains rated 12.5/10 - Oncology consulted- appreciate recs - transitioning to home hospice - Palliative med consulted - appreciate - CT abd /pelvis completed on 08/14 - reviewed : -General surgery was consulted due to results which were showing possible fistulous tract in the end colostomy in the sigmoid area. 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 -No surgical intervention required at this time - Urology consulted for possible bladder fistula UTI - Proteus growing in urine, ok with antibiotics- ertapenum on board Hypoventilation likely secondary to narcotic use - Occurred on 08/14 - Pt was administered narcan for RR of 7, and symptoms resolved with a RR of 16 since narcan administration Intractable pain - will remain on Methadone 10 mg BID, dilaudid has been decreased to 0.5 mg Q3HWA since episode of hypoventilation yesterday. Continue gabapentin. - Pain management consulted: appreciate recs DM - placed on sliding scale until tolerating PO Met colorectal CA - Heme/onc consulted and appreciate recs Anemia - Hgb improved up to high 8s - Continue trend labs every other day labs, possible dilutional with dehydration and IVF administration - no apparent GI blood loss through colostomy bag - Last round of chemotherapy was about 2.5 weeks ago and follows with Dr. Nichols Wound of R toe - being treated topically at present CODE STATUS: DNR Dispostion: From home, CM to assist with dc planning (Shalini Wick, TROY)
--- NOTE | 2017-08-16 09:22 | NUR ---
ID: Patient alert and oriented x4/ drowsy. Diabetic clear liquid diet. No c/o pain. Routine methadone and PRN dilaudid for pain. Comfort measures. Turn and reposition. Incontinent of urine. Colostomy with small output. APORT HL. Anticipated discharge uncertain at present time.
--- NOTE | 2017-08-16 09:40 | NUR ---
RD identified pt at nutrition risk d/t NPO/CL > 3 days. Process plan not entered as pt was ordered MASCARA MOLDER. No further nutrition intervention is warranted at this time. Continue diet as tolerated by pt. Please consult RD PRN if pt has a change in status.
[2017-08-16] MEDS: ERTAPENEM IV 1 GM in SODIUM CHLOR 0.9% AD-VAN 50ML 50 ML IV SCH (11:19)
[2017-08-16 16:00] VITALS: O2SAT 100
[2017-08-16] MEDS: MIRTAZAPINE TAB 15 MG TAB PO SCH (20:59)
[2017-08-16] MEDS: HYDROmorphone HCL 2 MG TAB PO PRN (21:04)
[2017-08-17] MEDS: LEVOTHYROXINE 50 MCG TAB PO SCH (06:29)
[2017-08-17 07:40] VITALS: BP 123/80; PULSE 62
[2017-08-17] MEDS: NYSTATIN POWDER 15GM BTL EXT SCH (07:42)
[2017-08-17] MEDS: METHADONE HCL 10 MG TAB PO SCH ×2 (07:42→21:15)
[2017-08-17] MEDS: NYSTATIN SUSP 500,000 U/5 ML UDC PO SCH ×4 (07:43→20:00)
[2017-08-17] MEDS: LISINOPRIL 10 MG TAB PO SCH (07:43)
[2017-08-17] MEDS: SERTRALINE HCL 100 MG TAB PO SCH (07:43)
[2017-08-17] MEDS: GABAPENTIN 300 MG CAP PO SCH ×3 (07:43→21:16)
[2017-08-17] MEDS: CARBAMAZEPINE 200 MG TABCR PO SCH (07:43)
[2017-08-17 08:00] VITALS: O2SAT 100
--- NOTE | 2017-08-17 08:50 | Hospitalist Progress Note ---
Hospitalist Progress Note Date of Service Aug 17, 2017. Subjective Pt evaluation today including: conversation w/ patient, physical exam, chart review, lab review, review of studies Pain: moderate abdominal pain PO Intake: fair Voiding: shin catheter in place The patient was seen and examined this morning. Patient reports feeling about the same as yesterday, he is still having some nausea and abdominal pain. He has been able to tolerate small amounts of water and beef broth. Discussion was held regarding home hospice and he is in agreement with this, his son is looking into agencies. At this point he is likely to remain here for at least the next 2 days until facilities can arrange for bed/transportation. Additional Comments: Constitutional: No fever, sweats or chills, fatigued, sleeps majority of the day Eyes: No diplopia, no worsening or blurred vision ENT: normal hearing, no trouble swallowing Respiratory: No cough, sputum, dyspnea at rest or on exertion Cardiovascular: No chest pain, tightness or palpitations Abdomen:+ pain, nausea. No vomiting, bowels moving through the ostomy without difficulty, loose Musculoskeletal: No joint pain, calf pain, mild leg swelling Neurologic: No weakness, numbness/tingling, or balance problems Skin: No rash or itch Objective Vital Signs Date Time Temp Pulse Resp B/P (MAP) Pulse Ox O2 Delivery O2 Flow Rate FiO2 08/17/17 07:40 62 123/80 (94) 08/17/17 01:01 Nasal Cannula 2.0 08/16/17 20:15 Nasal Cannula 2.0 08/16/17 16:00 100 Nasal Cannula 2.0 Physical Exam Notes: General Appearance: WD/WN, no apparent distress, + pertinent finding (sleeping upon entry but easily awakened) Eyes: PERRL, EOMI ENT: hearing grossly normal, pharynx normal, mucous membranes dry Neck: supple, no JVD Respiratory/Chest: no respiratory distress, no accessory muscle use, on 4 L via NC Abdomen: normal bowel sounds, soft Extremities: + pedal edema (1+ pitting ) Neurologic/Psychiatric: alert Skin: normal color, warm/dry, + pallor Notes: Rest of exam deferred due to being on comfort care. Laboratory Results Last 24 Hours Test 08/16/17 11:25 08/16/17 16:09 08/17/17 07:45 Bedside Glucose 130 mg/dl 99 mg/dl 83 mg/dl Assessment and Plan 67 y/o M Hx DM, HPL, liver cirrhosis on recent imaging, metastatic colorectal CA. Pt presents with progressive weakness over the past 5 days in addition to intractable generalized pain and intractable nausea and vomiting. He has not been able to tolerate solids or fluids for a few days. He states that his pain is severe and generalized, involving most of his joints and could not localize any specific area, He denies CP, abdominal pain or fevers. The pt has a colostomy bag and has not had a change in output or stool consistency. Transition to Comfort Care - CM assisting initiation of hospice - Patient reports he has not yet chosen an agency and that his son is working on this. It is likely that facility has not been chosen at this point due to the holiday, and that the patient will remain here for at least the next 2 days due to bed placement, and transportation to a facility. Intractable nausea and vomiting - Likely related to chemotherapy - placed on clear diet, antiemetics, IVF - diuretic held due to clinical dehydration. - Continue supportive care - abdomen is soft, output in his colostomy bag - Pain remains rated 12/10 and is unchanged, abdomen is soft and patient has minimal facial grimacing with palpation - Oncology consulted- appreciate recs - transitioning to home hospice - Palliative med consulted - appreciate recs - CT abd /pelvis completed on 08/14 - reviewed : -General surgery was consulted due to results which were showing possible fistulous tract in the end colostomy in the sigmoid area. 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 -No surgical intervention required at this time. Urology was mentioned to be consulted but has not been at this time due to no surgical intervention and home on hospice UTI - Proteus growing in urine- final cultures pansensitive so will transition from ertapenem to Cipro tablets 500MG BID x 3 days starting tomorrow am( for a 7 day course ) patient received dose of ertapenem today. - Antibiotic day #4 Hypoventilation likely secondary to narcotic use - Occurred on 08/14 - Pt was administered narcan for RR of 7, and symptoms resolved with a RR of 16 since narcan administration Intractable pain - will remain on Methadone 10 mg BID, dilaudid has been decreased to 0.5 mg Q3HWA since episode of hypoventilation yesterday. Continue gabapentin. - Pain management consulted: appreciate recs DM - placed on sliding scale until tolerating PO Met colorectal CA - Heme/onc consulted and appreciate recs Anemia - Hgb improved up to high 8s - Continue trend labs every other day labs, possible dilutional with dehydration and IVF administration - no apparent GI blood loss through colostomy bag - Last round of chemotherapy was about 2.5 weeks ago and follows with Dr. Nichols Wound of R toe - being treated topically at present CODE STATUS: DNR Dispostion: From home, CM to assist with dc planning
--- NOTE | 2017-08-17 09:37 | NUR ---
ID: Patient alert and oriented x3. Turn and reposition Q 2 hours. Voiding in urinal and can be incontinent. Methadone routine for pain. PRN Dilaudid. APORT HL. Comfort measures. Anticipated discharge uncertain at present time.
[2017-08-17] MEDS: ERTAPENEM IV 1 GM in SODIUM CHLOR 0.9% AD-VAN 50ML 50 ML IV SCH (11:13)
[2017-08-17 16:00] VITALS: O2SAT 100
[2017-08-17] MEDS: MIRTAZAPINE TAB 15 MG TAB PO SCH (21:16)
[2017-08-18] MEDS: LEVOTHYROXINE 50 MCG TAB PO SCH (06:16)
[2017-08-18] MEDS: METHADONE HCL 10 MG TAB PO SCH ×2 (08:35→20:23)
[2017-08-18] MEDS: NYSTATIN POWDER 15GM BTL EXT SCH (08:35)
[2017-08-18] MEDS: NYSTATIN SUSP 500,000 U/5 ML UDC PO SCH ×4 (08:36→20:24)
[2017-08-18] MEDS: GABAPENTIN 300 MG CAP PO SCH ×3 (08:36→20:23)
[2017-08-18] MEDS: CARBAMAZEPINE 200 MG TABCR PO SCH (08:37)
[2017-08-18] MEDS: SERTRALINE HCL 100 MG TAB PO SCH (08:38)
[2017-08-18] MEDS: CIPROFLOXACIN 500 MG TAB PO SCH ×2 (08:38→20:22)
[2017-08-18] MEDS: LISINOPRIL 10 MG TAB PO SCH (08:38)
--- NOTE | 2017-08-18 11:18 | Hospitalist Progress Note ---
Hospitalist Progress Note Date of Service Aug 18, 2017. (Shalini Wick PA-C) Subjective Pt evaluation today including: conversation w/ patient, physical exam, chart review, lab review, review of studies The patient was seen and examined this morning. Pt reports his pain is the same. Nausea feels slightly better today as he is tolerating liquids, although not solid foods for days at this point. He is having trouble with swallowing some thin liquids and occasionally chokes on it, and has only a weak cough to get it back up. He reports feeling tired, and sleeps 4-5 hours at a time. Pt has no other complaints. Additional Comments: ROS: Reviewed as above, otherwise deferred as on comfort care (Shalini Wick, TROY) Objective Vital Signs Date Time Temp Pulse Resp B/P (MAP) Pulse Ox O2 Delivery O2 Flow Rate FiO2 08/18/17 00:00 Nasal Cannula 2.0 08/17/17 20:00 Nasal Cannula 2.0 08/17/17 16:00 100 Nasal Cannula 2.0 (Shalini Wick PA-C) Physical Exam General Appearance: WD/WN, no apparent distress, + pertinent finding (sleeping upon entry) Eyes: PERRL, EOMI ENT: pharynx normal, + pertinent finding (mucous membranes dry) Respiratory/Chest: no respiratory distress, no accessory muscle use, + pertinent finding (on 4 L via NC, diminshed breath sounds throughout, no adventitious sounds) Cardiovascular: regular rate, rhythm, no murmur Abdomen: soft, + tenderness (mild with light palpation), + pertinent finding ( + hypoactive bowel sounds, + colostomy bag intact, outs with loose yellow stool) Extremities: non-tender, + pedal edema (1+ mild pitting BLE) Neurologic/Psychiatric: alert, + pertinent finding (oriented to self and place , not date) Skin: warm/dry, + pallor (Shalini Wick PA-C) Laboratory Results Last 24 Hours Test 08/17/17 11:48 Bedside Glucose 127 mg/dl (Shalini Wick PA-C) Assessment and Plan 67 y/o M Hx DM, HPL, liver cirrhosis on recent imaging, metastatic colorectal CA. Pt presents with progressive weakness over the past 5 days in addition to intractable generalized pain and intractable nausea and vomiting. He has not been able to tolerate solids or fluids for a few days. He states that his pain is severe and generalized, involving most of his joints and could not localize any specific area, He denies CP, abdominal pain or fevers. The pt has a colostomy bag and has not had a change in output or stool consistency. Transition to Comfort Care - CM assisting initiation of hospice - Patient reports he has not yet chosen an agency and that his son is working on this. It is likely that facility has not been chosen at this point due to the holiday, and that the patient will remain here for at least the next day due to bed placement, and transportation to a facility. Intractable nausea and vomiting - Likely related to chemotherapy - placed on clear diet, antiemetics, IVF - diuretic held due to clinical dehydration. - Continue supportive care - abdomen is soft, output in his colostomy bag - Pain remains unchanged, abdomen is soft and patient has minimal facial grimacing with palpation - Oncology consulted- appreciate recs - transitioning to home hospice - Palliative med consulted - appreciate recs - CT abd /pelvis completed on 08/14 - reviewed : -General surgery was consulted due to results which were showing possible fistulous tract in the end colostomy in the sigmoid area. 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 -No surgical intervention required at this time. Urology was mentioned to be consulted but has not been at this time due to no surgical intervention and home on hospice UTI - Proteus growing in urine- final cultures pansensitive- transition from ertapenem to Cipro tablets 500MG BID x 3 days on 08/18 (continue abx for a 7 day course ) - Antibiotic day #5 Hypoventilation likely secondary to narcotic use - Occurred on 08/14 - Pt was administered narcan for RR of 7, and symptoms resolved with a RR of 16 since narcan administration Intractable pain - will remain on Methadone 10 mg BID, dilaudid has been decreased to 0.5 mg Q3HWA since episode of hypoventilation yesterday. Continue gabapentin. - Pain management consulted: appreciate recs DM - placed on sliding scale until tolerating PO Met colorectal CA - Heme/onc consulted and appreciate recs Anemia - Hgb improved up to high 8s , no further lab draws on comfort care. - Likely was dilutional with dehydration and IVF administration - no apparent GI blood loss through colostomy bag - Last round of chemotherapy was about ~3 weeks ago and follows with Dr. Nichols Wound of R toe - being treated topically CODE STATUS: DNR Dispostion: From home, CM to assist with dc planning, possible discharge tomorrow 08/19 if home hospice set up. (Shalini Wick, TROY) [place] Physician Supervision Note: I interviewed and examined the patient. Discussed with Shalini Wick PAC and agree with findings and plan as documented in the note. Any exceptions or clarifications are listed here: None Patient has history of metastatic colorectal carcinoma on comfort hospice care measures he has a urinary tract infection for his problems and diabetes. He is bothered by pain management he says his pains been difficult to control for some time says occasionally Dilaudid does help we'll continue to attempt a tremendous pain management Laboratory did not check for some time due to his comfort care hospice status as well as vital signs He is awake he does arouse easily he does complain of pain mostly all over some in his abdomen Hospice care for metastatic colorectal cancer, we'll attempt to improve pain management Documented By: Lasha Mott (Lasha Mott M.D.)
[2017-08-18] MEDS ORDERED: HYDROmorphone HCL 2 MG TAB PO PRN (15:30)
[2017-08-18] MEDS: MIRTAZAPINE TAB 15 MG TAB PO SCH (20:23)
[2017-08-19] MEDS: LEVOTHYROXINE 50 MCG TAB PO SCH (05:47)
--- NOTE | 2017-08-19 07:12 | HEME/ONC PROGRESS NOTE ---
DATE: 08/18/2017 DIAGNOSES: 1. Failing performance status. 2. Intractable nausea and vomiting. 3. Urinary tract infection. 4. Hypoventilation secondary to opioids. 5. Metastatic colorectal cancer. 6. Chronic anemia. SUBJECTIVE: Joseph is a very pleasant 67-year-old gentleman, well known to [facility] specifically myself under care for metastatic colorectal cancer. Joseph is now on hospital day #4 after being admitted for general decline. P.o. intake has been minimal. He recently developed proteus in his urine and continues antibiotics. The pain seems to be better controlled despite developing a brief episode of hypoventilation requiring Narcan resuscitation. Joseph and his family have agreed that further chemotherapy would be more of a detriment and therefore wants to a transition to outpatient hospice. Clinically today, he is awake, alert, and answers questions appropriately and again expresses his desire to go home. PHYSICAL EXAMINATION: GENERAL: Pleasant 67-year-old gentleman, lying supine in bed, in no acute distress at this time. VITAL SIGNS: His pulse is 62 and blood pressure 123/80. He is receiving 2 liters via nasal cannula at present. HEENT: Mucous membranes are dry. NECK: Supple. HEART: Regular rate and rhythm. LUNGS: Clear to auscultation bilaterally. ABDOMEN: Soft, nontender and nondistended. EXTREMITIES: No clubbing, cyanosis or edema. NEUROLOGIC: He is grossly intact. LABORATORY DATA: No further labs ordered. IMPRESSION: 1. End-stage metastatic colorectal cancer. 2. Failing performance status. 3. Anorexia/weight loss. 4. Chronic anemia. 5. Chronic pain syndrome secondary to expanding disease. PLAN: I appreciate the hospitalist and palliative care team's effort in Joseph's care. I agree it is time to transition to palliative measures. oJseph reaffirmed a desire to me at bedside this morning. There is nothing further to add from medical oncology standpoint. We will officially sign off today. I wished Joseph a happy holiday and well overall. [facility]
[2017-08-19 08:00] VITALS: O2SAT 100
[2017-08-19 08:12] VITALS: BP 142/81; PULSE 67; TEMP 36.3; O2SAT 100
[2017-08-19] MEDS: NYSTATIN POWDER 15GM BTL EXT SCH (08:14)
[2017-08-19] MEDS: LISINOPRIL 10 MG TAB PO SCH (08:15)
[2017-08-19] MEDS: GABAPENTIN 300 MG CAP PO SCH ×3 (08:15→20:45)
[2017-08-19] MEDS: CIPROFLOXACIN 500 MG TAB PO SCH ×2 (08:15→20:45)
[2017-08-19] MEDS: SERTRALINE HCL 100 MG TAB PO SCH (08:15)
[2017-08-19] MEDS: NYSTATIN SUSP 500,000 U/5 ML UDC PO SCH ×4 (08:15→20:45)
[2017-08-19] MEDS: CARBAMAZEPINE 200 MG TABCR PO SCH (08:16)
[2017-08-19] MEDS: METHADONE HCL 10 MG TAB PO SCH ×2 (08:22→20:44)
--- NOTE | 2017-08-19 10:02 | Palliative Care Progress Note ---
Palliative Care Progress Note Date of Service Aug 19, 2017. Subjective Pt evaluation today including: conversation w/ patient, conversation w/ family , physical exam, chart review, lab review Pain: Well controlled, has not required any prn meds since 2103 on 08/16 PO Intake: fair Pt was awake , alert, sitting up and pushing his tray table back when I entered the room. When I started to speak with him - he would close his eyes and speak in a weak voice. Spoke with nurse who had him yesterday and she reported he was alert and talkative yesterday , but when she transferred a call from his daughter into his room, he spoke to her in a weak feeble voice - daughter spoke to nurse as she was concerned about his condition. Reviewed pt's weight from March admission - he has lost 16 # in 3 months . His son in law reports he has times when he sleeps most of the day. Pt has not been OOB in the past few days, nursing will see if he is able to sit on the side of the bed and possible bear weight today. Pt had been well controlled on methadone 10 mg BID in Mar, he was increased back to 10 mg TID by Hem/Onc and had been maintained on that dose. Pt will always give 8/10 as his pain level even when he has to be awakened from sleep - his methadone was increased back to 30 mg daily ( 15 mg BID) on 08/18 pm. Pain appears to well controlled - pt able to sit up and bend over in bad without wincing. I was able to deeply palpate his abdomen with a stethoscope this am without any wincing or c/o pain. Review of Systems Constitutional: No fever, No chills ENT: No hearing loss Respiratory: No cough, No shortness of breath Cardiac: No chest pain Abdomen: + pain (pt reports 8/10 pain - which is the pain level he gives even when awakened from sleep. ), + problem reported (ostomy in place) Male : + incontinence Neurologic: + weakness Endo: + fatigue Objective Vital Signs Date Time Temp Pulse Resp B/P (MAP) Pulse Ox O2 Delivery O2 Flow Rate FiO2 08/19/17 08:12 36.3 67 20 142/81 (101) 100 Room Air 08/18/17 23:00 Nasal Cannula 2.0 08/18/17 16:00 Nasal Cannula 2.0 Physical Exam General Appearance: no apparent distress Eyes: EOMI ENT: hearing grossly normal Neck: supple Respiratory/Chest: lungs clear Cardiovascular: regular rate, rhythm, + systolic murmur Abdomen: normal bowel sounds, non tender (able to palpate deeply with stethoscope all quad), + pertinent finding (ostomy in place) Extremities: + pedal edema (trace) Neurologic/Psychiatric: alert Skin: warm/dry Assessment and Plan (1) Chronic pain Status: Chronic Assessment & Plan: Well controlled on methadone at 30 mg a day divided BID or TID, no prns since 08/16 (2) Weakness Status: Acute Assessment & Plan: Pt not getting OOB, on comfort care - nursing to see if pt can sit on the side of the bed and bear weight. (3) Diabetes Status: Chronic Assessment & Plan: Blood sugars have been 83-133 for the past 72 hours - off his Metformin (4) Nausea & vomiting Status: Acute Assessment & Plan: No further complaints - last dose of Zofran was on 08/15 in the am (5) Altered mental status Status: Acute Assessment & Plan: Improving with antibiotics for UTI Total time spent with pt and speaking to family by phone 35 min Palliative Performance Scale: 30 % Continued [facility] stay due to: ambulation difficulties, home environment unsafe for pt Discharge planning: uncertain (Will likely need placement with Hospice care)
--- NOTE | 2017-08-19 12:24 | NUR ---
CWOCN: FOLLOW-UP WITH PATIENT , RE: OSTOMY. PATIENT HAD OSTOMY SURGERY AT [facility]. FOUND PATIENT WITH [facility] OSTOMY APPLIANCE WITH LARGE AMOUNT OF EXTRA TAPE PICTURE-FRAMING APPLIANCE WAFER. THIS TAPE IS TEARING SKIN WITH REMOVAL. PATIENT WANTED TO USE OWN APPLIANCE. GAVE THIS NURSE PERMISSION TO LOOK IN BELONGINGS FOR PRODUCTS. FOUND SKIN PREP, ADHESIVE REMOVER, STOMA WIPES IN BAG. ALL UNNECESSARY PRODUCTS. FOUND IS USING MOLDABLE WAFER, SIZE LARGE MADE FOR STOMA 1 1/4" TO 1 3/4". STOMA IS 1", STOMA IS FLUSH AND IN FOLD. FLAT, MOLDABLE WAFER IS NOT BEST OPTION. FOUND SMALL AREA OF IRRITATED SELENA-STOMAL SKIN AT 6 O'CLOCK. APPLIED 2" ADAPT RING TO SURROUND STOMA. USED PATIENT'S OWN WAFER AND POUCH. EXPOSED SKIN IS COVERED BY RING. APPLIED ELASTIC BARRIER STRIPS TO WAFER(PATIENTS OWN.) SUGGEST CHANGING PRODUCT TO MEDIUM, CONVEX, MOLDABLE WAFER IF DESIRES TO REMAIN WITH [facility] PRODUCTS. NO SKIN PREP, ADHESIVE REMOVER,NOR STOMA WIPES TO BE USED. IF WISHES TO CHANGE PRODUCT LINE, SUGGEST NASIR 1 3/4" EXTENDED WEAR, SOFT CONVEX WAFER, CUT AT 1".
--- NOTE | 2017-08-19 16:29 | Hospitalist Progress Note ---
Hospitalist Progress Note Date of Service Aug 19, 2017. (Clarissa Ferreira ., HI-C) Subjective Pt evaluation today including: conversation w/ patient, physical exam, chart review, lab review, review of inpatient medication list Voiding: incontinence Patient complains of "11.5 out of 10" pain all over his body, but this is improved compared to his "12 out of 10" pain yesterday. He states that he feels a bit short of breath today and has a dry, non-productive cough. He reports little appetite. Per nursing, the patient is incontinent of urine. Per nursing, the patient appears to be more awake and have more energy when staff is not directly in his room but will then appear more weak/tired once they enter the room. The patient denies fevers, chills, sweats, chest pain, palpitations, claudication, wheezing, nausea, vomiting, abdominal pain, dysuria , hematuria, urinary retention, paralysis, numbness and tingling. Additional Comments: See HPI for pertinent positives and negatives. All other systems reviewed and negative. (Clarissa Ferreira ., HI-C) Objective Vital Signs Date Time Temp Pulse Resp B/P (MAP) Pulse Ox O2 Delivery O2 Flow Rate FiO2 08/19/17 08:12 36.3 67 20 142/81 (101) 100 Room Air 08/19/17 08:00 100 Room Air 08/18/17 23:00 Nasal Cannula 2.0 (Clarissa Ferreira, HI-C) Physical Exam Notes: General appearance: +Appears chronically ill, fatigued. Well-developed, well- nourished, no apparent distress Head: Normocephalic, atraumatic Eyes: Normal inspection, PERRL, EOMI ENT: Normal ENT inspection, hearing grossly normal, pharynx normal Neck: Supple, no JVD, trachea midline Respiratory/Chest: Lungs clear to auscultation, normal breath sounds, no respiratory distress Cardiovascular: Regular rate & rhythm, no gallop, no murmur Abdomen/GI: +Colostomy LUQ. Normal bowel sounds, non-tender, soft Extremities/Musculoskeletal: Normal inspection, no calf tenderness, no pedal edema Neurological/Psych: +Lethargic. Normal mood/affect, oriented x 3 Skin: Normal color, warm/dry, no rash (Clarissa Ferreira, PA-C) Assessment and Plan 67 y/o male with a history of DM II, HLD, liver cirrhosis on recent imaging, metastatic colorectal CA. Pt presents with progressive weakness over the past 5 days in addition to intractable generalized pain and intractable nausea and vomiting. He has not been able to tolerate solids or fluids for a few days. Transition to Comfort Care, metastatic colorectal cancer, chronic pain - Admit to med/surg - CM assisting initiation of hospice. Pt will need 24 hour care at home or hospice at a facility - Oncology consulted, appreciate recs: agree with comfort measures. Nothing further to do from oncology standpoint, will sign off - Methadone increased to 15 mg PO BID, Dilaudid increased to 1 mg PO q3h prn pain - Continue gabapentin 300 mg PO TID - Palliative care following Intractable nausea and vomiting - Likely related to chemotherapy - Advance diet as tolerated, now on regular diet. No N/V - CT abd/pelvis completed on 08/14 - reviewed - General surgery was consulted due to results which were showing possible fistulous tract in the end colostomy in the sigmoid area. 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 - No surgical intervention required at this time. Urology was mentioned to be consulted but has not been at this time due to no surgical intervention and home on hospice UTI--stable - Proteus growing in urine- final cultures pansensitive- transition from ertapenem to Cipro tablets 500MG BID - Antibiotic day #6 of 7 Hypoventilation likely secondary to narcotic use - Occurred on 08/14 - Pt was administered Narcan for RR of 7, and symptoms resolved with a RR of 16 since Narcan administration DM II - Diet controlled, not currently on meds Anemia - Hgb improved up to high 8s , no further lab draws on comfort care. - Likely was dilutional with dehydration and IVF administration - no apparent GI blood loss through colostomy bag - Last round of chemotherapy was about ~3 weeks ago and follows with Dr. Magdalena Winkler of R toe - Being treated topically Code Status -Level V, DO NOT RESUSCITATE Dispo -Pt would like home hospice, however does not have 24 hour care at home currently. Likely will need transfer to facility -Case management following (Clarissa Ferreira ., TROY) [place] Physician Supervision Note: I interviewed and examined the patient. Discussed with Clarissa Ferreira PAC and agree with findings and plan as documented in the note. Any exceptions or clarifications are listed here: None Patient remains in complaints of pain although appears to be comfortable his final disposition is in question as the patient wants to return home, he does live alone, hospice cannot participate with him unless he is a 24 in-house caregiver. Patient only has about 6 hours of in-home care from a relative. [facility] [address] [facility] service feels he should go to a facility on hospice. Patient's pain is being managed by methadone and when necessary oral hydromorphone. Next Vitals appear stable the patient is comfortable is on appear tachycardic his heart is actually regular his lungs are clear and unlabored his abdomen is slightly uncomfortable to exam Metastatic colon cancer need of hospice care, Dr. Mccoy is in agreement that the patient would benefit from hospice care likely a facility the patient however is not completely agreeable with that we'll continue to work with case management to have resolution. The patient has only acute care needs of chronic pain control Documented By: Lasha Mott (Lasha Mott M.D.)
--- NOTE | 2017-08-19 16:40 | NUR ---
Talked about patient at rounds today. Palliative Care has talked with the family about hospice care. Recommendation was SNF placement with hospice services. Talked with patient's daughter, Debbie, today about discharge plans. She also talked with Palliative Care and is aware of the prognosis. Patient's mother arrives today and will visit with daughter tomorrow around Noon. Daughter said that they cannot provide 24 hour care for the patient. She has 4 children. Caregivers provide 41 hours of care per week but that barely covers his care. They cannot afford to hire additional caregivers. Explained that patient's care in a custodial would be covered by his Medicaid. Advised her to consider custodial placement at [facility] or [facility]. She said that either place would be fine. Will send referrals to [facility].
[2017-08-19] MEDS: MIRTAZAPINE TAB 15 MG TAB PO SCH (20:46)
[2017-08-20] MEDS: LEVOTHYROXINE 50 MCG TAB PO SCH (06:16)
[2017-08-20] MEDS: NYSTATIN SUSP 500,000 U/5 ML UDC PO SCH ×5 (08:00→20:48)
[2017-08-20 08:30] VITALS: O2SAT 100
[2017-08-20] MEDS: NYSTATIN POWDER 15GM BTL EXT SCH ×2 (09:43→10:26)
[2017-08-20] MEDS: LISINOPRIL 10 MG TAB PO SCH (09:44)
[2017-08-20] MEDS: METHADONE HCL 10 MG TAB PO SCH ×2 (09:44→20:45)
[2017-08-20] MEDS: SERTRALINE HCL 100 MG TAB PO SCH (09:44)
[2017-08-20] MEDS: CIPROFLOXACIN 500 MG TAB PO SCH ×2 (09:44→20:46)
[2017-08-20] MEDS: GABAPENTIN 300 MG CAP PO SCH ×3 (09:44→20:46)
[2017-08-20] MEDS: CARBAMAZEPINE 200 MG TABCR PO SCH (09:45)
--- NOTE | 2017-08-20 11:31 | NUR ---
ID: Patient alert and oriented x3. Turn and reposition Q 2 hours. Incontinent of urine. Pt on comfort measures. Left a-port HL. Scheduled methadone and PRN diluadid for pain control. Plan to DC on hospice. DC date uncertain.
--- NOTE | 2017-08-20 12:17 | Hospitalist Progress Note ---
Hospitalist Progress Note Date of Service Aug 20, 2017. (Clarissa Ferreira ., PA-C) Subjective Pt evaluation today including: conversation w/ patient, physical exam, chart review, lab review, conversation w/ commercial solar sales consultant (spoke with palliative care), review of inpatient medication list The patient continues to complain of severe pain all over, which per palliative is his baseline even when he is fairly mobile and active. He does not have much appetite but eats when he can. He denies any nausea or vomiting. He complains of a dry cough. The patient denies fevers, chills, sweats, chest pain , palpitations, claudication, wheezing, shortness of breath, nausea, vomiting, abdominal pain, dysuria, hematuria, urinary retention, paralysis, weakness, numbness and tingling. Additional Comments: See HPI for pertinent positives and negatives. All other systems reviewed and negative. (Clarissa Ferreira ., PA-C) Objective Vital Signs Date Time Temp Pulse Resp B/P (MAP) Pulse Ox O2 Delivery O2 Flow Rate FiO2 08/20/17 08:30 100 Room Air 08/20/17 00:20 Room Air 08/19/17 19:40 Room Air (Clarissa Ferreira ., PA-C) Physical Exam Notes: General appearance: +Appears chronically ill, lethargic. Well-developed, well- nourished, no apparent distress Head: Normocephalic, atraumatic Eyes: Normal inspection, PERRL, EOMI ENT: Normal ENT inspection, hearing grossly normal, pharynx normal Neck: Supple, no JVD, trachea midline Respiratory/Chest: Lungs clear to auscultation, normal breath sounds, no respiratory distress Cardiovascular: +Systolic murmur. Regular rate & rhythm, no gallop Abdomen/GI: +Colostomy LUQ. Normal bowel sounds, non-tender, soft Extremities/Musculoskeletal: Normal inspection, no calf tenderness, no pedal edema Neurological/Psych: +Lethargic. Normal mood/affect, oriented x 3 Skin: Normal color, warm/dry, no rash (Clarissa Ferreira ., PA-C) Assessment and Plan 67 y/o male with a history of DM II, HLD, liver cirrhosis on recent imaging, metastatic colorectal CA. Pt presents with progressive weakness over the past 5 days in addition to intractable generalized pain and intractable nausea and vomiting. He has not been able to tolerate solids or fluids for a few days. Transition to Comfort Care, metastatic colorectal cancer, chronic pain - Admit to med/surg - CM assisting initiation of hospice. Pt will need 24 hour care at home or hospice at a facility. Per daughter/POA, family cannot provide 24 hour care at home and therefore needs to be placed - Oncology consulted, appreciate recs: agree with comfort measures. Nothing further to do from oncology standpoint, will sign off - Methadone increased to 15 mg PO BID, Dilaudid increased to 1 mg PO q3h prn pain. Increased lethargy today. Consider decreasing methadone - Continue gabapentin 300 mg PO TID - Palliative care following. Spoke with Emeli, agree with SNF placement for hospice Intractable nausea and vomiting--resolved - Likely related to chemotherapy - Advance diet as tolerated, now on regular diet. No N/V - CT abd/pelvis completed on 08/14 - reviewed - General surgery was consulted due to results which were showing possible fistulous tract in the end colostomy in the sigmoid area. 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 - No surgical intervention required at this time. Urology was mentioned to be consulted but has not been at this time due to no surgical intervention and home on hospice UTI--stable - Proteus growing in urine- final cultures pansensitive- transition from ertapenem to Cipro tablets 500MG BID - Antibiotic day #7 of 7 Hypoventilation likely secondary to narcotic use - Occurred on 08/14 - Pt was administered Narcan for RR of 7, and symptoms resolved with a RR of 16 since Narcan administration DM II - Diet controlled, not currently on meds Anemia - Hgb improved up to high 8s , no further lab draws on comfort care. - Likely was dilutional with dehydration and IVF administration - no apparent GI blood loss through colostomy bag - Last round of chemotherapy was about ~3 weeks ago and follows with Dr. Nichols Wound of R toe - Being treated topically Code Status -Level V, DO NOT RESUSCITATE Dispo -Pt would like home hospice, however does not have 24 hour care at home and family is not able to provide. POA agreeable to SNF placement -Case management following, referrals sent to [facility] and [facility] (Clarissa Ferreira ., PA-C) PA Physician Supervision Note: I interviewed and examined the patient. Discussed with Clarissa Ferreira PAC and agree with findings and plan as documented in the note. Any exceptions or clarifications are listed here: None Patient remains in complaints of pain although appears to be comfortable Family has arrived and confirms that they cannot provide 24 hour in house supervision, agreement to move to subacute placement in [facility]. Palate of care service is managing pain by methadone and when necessary oral hydromorphone. Vitals appear stable the patient is comfortable i heart is regular his lungs are clear and unlabored his abdomen remains slightly uncomfortable to exam Metastatic colon cancer need of hospice care, Dr. Mccoy is in agreement that the patient would benefit from hospice care likely a facility case management has arranged for possible transfer 08/21 Documented By: Lasha Mott (Lasha Mott M.D.)
[2017-08-20 15:59] VITALS: O2SAT 100
--- NOTE | 2017-08-20 17:06 | NUR ---
Talked with Haylie from [facility] today. She can offer a bed to the patient. Met with patient's mother, his daughter, and his CECELIA today. Asked them about their preference in nursing homes. They toured [facility] today. They would like [facility]. Told them that a bed is available for the patient. We can send him when attending clears patient for discharge. Talked with attending about patient going to [facility]. He will evaluate patient tomorrow and compete the discharge. Talked with the family about patient going to [facility] tomorrow. They requested van transport. Talked with Haylie from [facility]. Patient can transfer tomorrow. Plan discharge to [facility] tomorrow.
[2017-08-20] MEDS: MIRTAZAPINE TAB 15 MG TAB PO SCH (20:48)
[2017-08-21] MEDS: LEVOTHYROXINE 50 MCG TAB PO SCH (06:30)
[2017-08-21] MEDS: NYSTATIN SUSP 500,000 U/5 ML UDC PO SCH ×2 (08:00→10:48)
[2017-08-21] MEDS: CIPROFLOXACIN 500 MG TAB PO SCH (08:05)
[2017-08-21] MEDS: SERTRALINE HCL 100 MG TAB PO SCH (08:05)
[2017-08-21] MEDS: LISINOPRIL 10 MG TAB PO SCH (08:05)
[2017-08-21] MEDS: GABAPENTIN 300 MG CAP PO SCH ×2 (08:05→12:19)
[2017-08-21] MEDS: CARBAMAZEPINE 200 MG TABCR PO SCH (08:06)
[2017-08-21] MEDS: METHADONE HCL 10 MG TAB PO SCH (08:08)
[2017-08-21] MEDS: NYSTATIN POWDER 15GM BTL EXT SCH (08:09)
[2017-08-21 08:30] VITALS: O2SAT 100
--- NOTE | 2017-08-21 09:00 | Palliative Care Progress Note ---
Palliative Care Progress Note Date of Service Aug 21, 2017. Subjective Pt evaluation today including: conversation w/ patient, physical exam, chart review, review of inpatient medication list Pain: controlled PO Intake: poor - none yesterday per nursing Voiding: incontinence Spoke with nursing Review of Systems Constitutional: No fever ENT: No hearing loss Respiratory: No cough Cardiac: No chest pain Abdomen: + pain (Pt always rates his pain as an 8 or a 12/10 - even when he awakens from sound sleep) Musculoskeletal: + problem reported (no increased LE swelling) Neurologic: + weakness Heme: No abnormal bleeding/bruising Endo: + fatigue Objective Vital Signs Date Time Temp Pulse Resp B/P (MAP) Pulse Ox O2 Delivery O2 Flow Rate FiO2 08/21/17 08:30 100 Room Air 08/21/17 00:00 Room Air 08/20/17 20:00 Room Air 08/20/17 15:59 100 Room Air Physical Exam General Appearance: no apparent distress Eyes: EOMI ENT: + pertinent finding (dry mouth, mouth breathing) Respiratory/Chest: lungs clear Cardiovascular: regular rate, rhythm Abdomen: + pertinent finding (non tender wjith palpation using stethoscope, decreased BS) Extremities: + pedal edema (improved ) Neurologic/Psychiatric: + pertinent finding (flat affect) Skin: warm/dry Assessment and Plan (1) Chronic pain Status: Chronic Assessment & Plan: Well controlled on methadone alone - would not d/c with prn pain meds. Spoke with nurse regarding report to facility regarding pt reporting pain at and 8/10 at best and 12/10 at worst - even when he appears comfortable. methadone does not sedate - pt has been lethargic and sleeping 17 to 24 hours a day for the past 4-5 weeks. (2) Weakness Status: Acute Assessment & Plan: not improving (3) Diabetes Status: Chronic Assessment & Plan: Pt not requiring any SSI - sugars all good even when not receiving his metformin - poor PO intake . (4) Nausea & vomiting Status: Acute Assessment & Plan: Prn Zofran effective (5) Altered mental status Status: Acute Assessment & Plan: Pt has been lethargic for the past 4-5 weeks after chemo. He was not a very active man at baseline Total time spent with pt and collaborating with nursing - 35 min. Pt will need LTC placement with Hospice Palliative Performance Scale: 30 % Continued [facility] stay due to: ambulation difficulties, home environment unsafe for pt Discharge planning: uncertain (Will likely need placement with Hospice care)
[2017-08-21 09:15] VITALS: BP 142/81; PULSE 67; TEMP 36.3; O2SAT 100
[2017-08-21] MEDS ORDERED: NYSS5 PO (11:21)
[2017-08-21] MEDS ORDERED: NRN300 PO (11:21)
[2017-08-21] MEDS ORDERED: MTH10 PO (11:21)
--- NOTE | 2017-08-21 11:32 | Discharge Instructions ---
Discharge Instructions Date of Service Aug 21, 2017. Admission Reason for Admission: Intractable Nausea And Vomiting, Weakness Discharge Discharge Diagnosis / Problem: Intractable N/V, weakness secondary to metastatic colon cancer, Hospice Discharge Goals Goal(s): Decrease discomfort Activity Recommendations Activity Level: Up Ad Roxann, Assistance Required Lifting Limitations: gradually increase as tolerated Exercise/Sports Limitations: gradually increase as tolerated Shower/Bathe: no limitations (with assistance) . Additional Information Patient informed of condition: Yes Advance Directives: Yes DNR: Yes Level of Care: Other (Comfort Care, Hospice) Communicable Disease: No Prognosis: Deteriorating Garland Catheter: No Instructions / Follow-Up Instructions / Follow-Up You were admitted to [facility] with intractable nausea, vomiting and increased weakness secondary to chemotherapy effects, metastatic colon carcinoma and were transitioned to comfort care with plans for hospice once discharged to [facility] facility. During your stay here you were treated with intravenous medications for pain and your methadone dosing was adjusted. Palliative care was involved in your care and helped to assist with planning and transition to hospice. You may eat and drink as you tolerate it. You do not need blood sugar checks for diabetes anymore. Antiemetics were provided and your nausea improved. Medications: Continue taking your medications as above. Hospice will be managing all your medications upon discharge. They will adjust pain medication if needed for pain. Please contact them with any questions or concerns. Follow up: Follow up with hospice physician within 24-48 hours upon discharge. Current Hospital Diet Patient's current hospital diet: Regular Diet Discharge Diet Recommended Diet: Regular Diet Pending Studies Studies pending at discharge: no Medical Emergencies . Who to Call and When: Medical Emergencies: If at any time you feel your situation is an emergency, please call 911 immediately. . Non-Emergent Contact Non-Emergency issues call your: Specialist (Hospice nurses and physician) Past History Medical & Surgical History: (1) Colon carcinoma metastatic to lung (2) Intractable nausea and vomiting (3) Chronic pain (4) Dehydration (5) Depression (6) Diabetes (7) Colostomy in place . "Provider Documentation" section prepared by Annika Wick. . Core Measure Problem Core Measures: None
--- NOTE | 2017-08-21 12:30 | NUR ---
As per attending, patient is cleared for discharge to [facility] today. Haylie from [facility] here today to evaluate patient. [facility] Talked with patient's daughter about discharge today. She's in agreement with the plan. Plan discharge today.
--- NOTE | 2017-08-21 12:41 | NUR ---
a: report called to [facility]. aware of medication changes prior to discharge. new discharge instructions in with chart. methadone script with chart. aport deaccessed. patients family has all belongings, including cell phone. will continue to monitor until transport arrives around 1300. pt aware of transport.
--- NOTE | 2017-08-21 15:36 | Discharge Summary ---
Discharge Summary Date of Service Aug 21, 2017. Discharge Summary Admission Date: Aug 14, 2017 at 11:14 Discharge Date: Aug 21, 2017 [facility]charge Disposition[facility] (on hospice) Principal Diagnosis: Metastatic colorectal CA Problems/Secondary Diagnoses: Metastatic colon carcinoma DM HPL liver cirrhosis on recent imaging, Intractable nausea and vomiting - Likely related to chemotherapy UTI Hypoventilation likely secondary to narcotic use Intractable pain Anemia of chronic disease Wound of R toe Immunizations: Have You Had Influenza Vaccine: Yes History of Tetanus Vaccine?: Yes History of Pneumococcal: Yes History of Hepatitis B Vaccine: No Procedures: CHEST ONE VIEW PORTABLE 08/12/17 IMPRESSION: No acute cardiopulmonary process. ABDOMEN AND PELVIS CT WITH IV CONTRAST 08/14/17 IMPRESSION: 1. Thick-walled gas and fluid collection the presacral space persists and measures 6 cm. There is associated suture material at this collection. Therefore, this may represent the residual rectum. However, if the patient has a prior proctectomy then this is consistent with an abscess. 2. Small foci of gas between the bladder and presacral fluid collection which could be within the seminal vesicles or an interposed loop of small bowel. If this is located within the seminal vesicles, then this is concerning for a small fistula. 3. Progressive thickening of the bladder wall which also contains small foci of gas. This could be due to recent catheterization or could also represent a fistula from the presacral fluid collection. 4. Small focus of gas within the left rectus abdominis muscles at the location of the blind end of the sigmoid colon. This is slightly progressed and is concerning for a fistula. This does not extend to the skin surface. 5. Progressive interstitial thickening and groundglass opacities within the lung bases consistent with a pneumonitis. 6. Additional findings as described above. Consultations: Hematology/oncology Pain management Wound Clinic Gen. surgery Medication Reconciliation New Medications: Gabapentin (Gabapentin) 300 Mg Cap 300 MG PO TID for 30 Days, #90 CAP Methadone HCl (Methadone HCl) 10 Mg Tab 15 MG PO BID for 3 Days, #9 TAB Nystatin (Nystatin) 5 Ml Susp 10 ML PO QID for 8 Days, #28 DOSE Finish on 08/28 to complete 14 d course. Continued Medications: Carbamazepine (Tegretol Xr) 400 Mg Tab 400 MG PO DAILY Levothyroxine Sodium (Levothyroxine Sodium) 50 Mcg Tab 50 MCG PO QAM, #30 Lisinopril (Lisinopril) 10 Mg Tab 10 MG PO DAILY, #30 Mirtazapine (Remeron) 30 Mg Tab 30 MG PO HS, #30 Nystatin (Topical) (Nystatin) 100,000 Unit/Gm Pow 1 APPLN TOP DAILY for GROIN & FOLDS Ondansetron (Ondansetron HCl) 8 Mg Tab 8 MG PO Q6 PRN for Nausea or Vomiting Sertraline HCl (Sertraline HCl) 100 Mg Tab 100 MG PO DAILY, #30 Discontinued Medications: Folic Acid (Folic Acid) 1 Mg Tab 1 MG PO DAILY Furosemide (Furosemide) 40 Mg Tab 40 MG PO DAILY Metformin HCl (Metformin HCl) 500 Mg Tab 500 MG PO DAILY Methadone Hcl (Dolophine) 10 Mg Tab 10 MG PO TID Nitroglycerin (Nitroglycerin) 0.4 Mg/Hr Dis 1 TAB SL prn for chest pain Pravastatin Sodium (Pravastatin Sodium) 40 Mg Tab 40 MG PO DAILY, #30 Discharge Exam The patient was seen and examined this morning. Pt reports feeling the same as yesterday, he still has generalized pain everywhere 12 out of 10. He reports his nausea is somewhat better today has been able to tolerate liquids without much difficulty. His bowels are moving through the ostomy without difficulty. ROS: Constitutional: No fever, sweats or chills ENT: normal hearing, no trouble swallowing Respiratory: No cough, sputum, dyspnea at rest Cardiovascular: No chest pain, tightness or palpitations Abdomen: Per history of present illness Musculoskeletal: Generalized pain throughout, no calf pain Neurologic: + weakness, No numbness/tingling Skin: No rash or itch PE: General Appearance: WD/WN, no apparent distress, + pertinent finding (sleeping upon entry, easily awakened) Eyes: PERRL, EOMI ENT: pharynx normal, + pertinent finding (mucous membranes dry, + white plaque on tongue with minimal erythema in posterior pharynx) Respiratory/Chest: no respiratory distress, no accessory muscle use, + pertinent finding (on 4 L via NC, diminished breath sounds throughout, no adventitious sounds) Cardiovascular: regular rate, rhythm, no murmur Abdomen: soft, + tenderness (with light palpation), + pertinent finding (+ hypoactive bowel sounds, + colostomy bag intact, outs with loose brown stool) Extremities: non-tender, + pedal edema (1+ mild pitting BLE) Neurologic/Psychiatric: alert, + pertinent finding (oriented to self and place , not date) Skin: warm/dry, + pallor Hospital Course 67 y/o M Hx DM, HPL, liver cirrhosis on recent imaging, metastatic colorectal CA. Pt presents with progressive weakness over the past 5 days in addition to intractable generalized pain and intractable nausea and vomiting. He has not been able to tolerate solids or fluids for a few days. He states that his pain is severe and generalized, involving most of his joints and could not localize any specific area, He denies CP, abdominal pain or fevers. The pt has a colostomy bag and has not had a change in output or stool consistency. Transitioned to comfort care/Hospice Care - CM assisting initiation of hospice - Planned discharge today to [facility] Intractable nausea and vomiting - Likely related to chemotherapy - placed on clear diet, antiemetics, IVF - diuretic held due to clinical dehydration. - Continue supportive care - abdomen is soft, output in his colostomy bag - Pain remains unchanged, abdomen is soft and patient has minimal facial grimacing with palpation - Oncology consulted- appreciate recs - transitioning to home hospice today - Palliative med consulted - appreciate recs continue methadone 15 mg twice a day - CT abd /pelvis completed on 08/14 - reviewed : -General surgery was consulted due to results which were showing possible fistulous tract in the end colostomy in the sigmoid area. 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 -No surgical intervention required at this time. Urology was mentioned to be consulted but has not been at this time due to no surgical intervention and home on hospice UTI - Proteus growing in urine- final cultures pansensitive- transition from ertapenem to Cipro tablets 500MG BID -Finished 7 day course of antibiotics while in the hospital. Hypoventilation likely secondary to narcotic use - Occurred on 08/14 - Pt was administered narcan for RR of 7, and symptoms resolved with a RR of 16 since narcan administration Intractable pain - will remain on Methadone 15 mg BID, Dilaudid infrequently used during hospital stay continue gabapentin 300 mg TID. - Pain management consulted: appreciate recs DM - placed on sliding scale until tolerating PO - will not require insulin at the time of discharge due to sugars being stable with lack of by mouth intake. Home on hospice. Met colorectal CA - Heme/onc consulted and appreciate recs Anemia - Hgb improved up to high 8s , no further lab draws on comfort care. - Likely was dilutional with dehydration and IVF administration - no apparent GI blood loss through colostomy bag - Last round of chemotherapy was about ~3 weeks ago and follows with Dr. Nichols Wound of R toe - being treated topically - d/c bacitracin and Silvadene. CODE STATUS: DNR Dispostion: From home, discharge to [facility] today on hospice.PA Physician Supervision Note: I interviewed and examined the patient. Discussed with Shalini Wick PAC and agree with findings and plan as documented in the note. Any exceptions or clarifications are listed here: None Patient is here for comfort measures for metastatic adenocarcinoma his family was contacted and they cannot provide care for him at home subsequently [facility]. He previously been enrolled in hospice care and is having his pain control with methadone, Neurontin and Tegretol and Remeron. The patient's vitals had not been followed as he been on comfort care in the hospital he however appears to be comfortable without any facial grimacing is slightly lethargic Patient will be transferred to skilled facility for hospice comfort care his is imminent but not in the near future Documented By: Lasha Mott Total Time Spent: Greater than 30 minutes This includes examination of the patient, discharge planning, medication reconciliation, and communication with other providers. Discharge Instructions Please refer to the electronic Patient Visit Report (Discharge Instructions) for additional information. Follow-Up Follow up with Hospice physician within 24-48 hours upon discharge. Additional Copies To Bob Israel M.D.
== END 2017-08-21 16:21 | DRG 391 ==
LOC: C.EDB 20:57 → C.4E 22:44 → ENRESERV 23:20 → OBSVTOIN 08-14 11:14
PROVIDERS: ADMIT Internal Medicine; ATTEND Internal Medicine
DX: R11.2 Nausea with vomiting, unspecified (principal); G93.41 Metabolic encephalopathy; C78.7 Secondary malignant neoplasm of liver and intrahepatic bile duct; C78.00 Secondary malignant neoplasm of unspecified lung; N39.0 Urinary tract infection, site not specified; C19 Malignant neoplasm of rectosigmoid junction; G89.3 Neoplasm related pain (acute) (chronic); Z51.5 Encounter for palliative care; E11.9 Type 2 diabetes mellitus without complications; F32.9 Major depressive disorder, single episode, unspecified; D64.81 Anemia due to antineoplastic chemotherapy; G62.0 Drug-induced polyneuropathy; F41.9 Anxiety disorder, unspecified; R06.03 Acute respiratory distress; T45.1X5A Adverse effect of antineoplastic and immunosuppressive drugs, initial encounter; Z79.84 Long term (current) use of oral hypoglycemic drugs; Z79.899 Other long term (current) drug therapy; Z92.3 Personal history of irradiation; Z66 Do not resuscitate; R06.89 Other abnormalities of breathing; T40.605A Adverse effect of unspecified narcotics, initial encounter; S91.104A Unspecified open wound of right lesser toe(s) without damage to nail, initial encounter; X58.XXXA Exposure to other specified factors, initial encounter; Z93.3 Colostomy status